=== PATIENT | male | born 1945 | race Caucasian/White ===

== ENCOUNTER 2017-10-13 10:30 | Outpatient (RCR) | payer MEDICARE, OTHER, SELFPAY ==
--- NOTE | 2017-09-15 14:30 | PTTR_ITS ---
DATE: 09/15/17 SUBJECTIVE: Indicated he has been busy with home repairs and knows this tightens his neck. Trying to stretch more to counteract this. OBJECTIVE: Manual therapy: ([id number]). Mobilization of cervical spine region while in supine consisting of gentle manual traction, grade 1/2 PA mobs to cervical vertebrae, PRTs to upper traps, lev scap and scalenes, TPM to SCMs and pecs. Focus was on the right . AAROM was performed into rotation and side bending to stretch soft tissue. Transitioned to prone for grade 1/2 PA mobs to thoracic vertebrae and brief TPM to rhomboid and mid traps. Therapeutic procedures ([id number]). * x HEP review: Reviewed phase 1 cervical stabilization isometric exercises. Given piece of yellow t-band and copy of written instructions for phase 1 cervical stab exercises. To perform 1 x per day for 10 reps each, holding each exercise 5 seconds. * x Provided skilled instruction in proper exercise performance * x Provided skilled manual cues to facilitate proper muscle recruitment and/ or movement pattern Ended session with MHP x 12 minutes to posterior c-spine region while in seated position at no charge. Direct treatment time: 37 minutes Total treatment time: 49 minutes
--- NOTE | 2017-09-22 08:30 | PN_ITS ---
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 He rates his pain as 3-4/10 presently and 6-7/10 at its worst. He feels relief of symptoms for about 2 days after PT treatment. He admits he does not always find the time to do his home program. He has been sleeping better most nights but sometimes his sleep is still disturbed. States he has been working on his computer about 3-4 hours per day and he sometimes falls into poor posture. His favorite exercise is the thoracic extension stretch and he states he feels a big difference after doing that one. He states he knows he needs to be more consistent with his HEP in order to see carry over of relief of symptoms and he states he is going to try to make time everyday. He also states he has been carrying a full bucket of water using his right UE which he thinks aggravates the right side of his neck. Instructed to carry less water in the bucket at a time and use both sides to carry water if he has 2 buckets. Objective: ROM: Cervical AROM flexion 40 degrees, extension 55 degrees, right side bending 40 degrees, left side bending 20 degrees, rotation moderately limited bilaterally measured before joint mobilizations and stretching. Posture: Still demonstrates poor seated posture with rounded shoulder, forward head, and thoracic kyphosis Palpation: Most sensitive to palpation right posterior neck, SCM, scalenes, upper trap and lev scap. NDI score: 20% impaired. Treatment: Manual therapy [id number]: Performed supine cervical manual distraction. Stretching into cervical side bending and rotation bilaterally. Grade 2/3 cervical P-A mobilizations, up glides, and down glides bilaterally. Occipital release. STM bilateral suboccipital musculature, SCMs, scalenes, upper trapezius , and levator scapulae in supine. Thoracic grade 2/3 P-A mobilizations in prone. STM bilateral upper trapezius, levator scapula, and periscapular musculature in prone. Patient reports less pain and demonstrated more motion after mobilizations and STM. Patient educated about the importance of completing HEP everyday for symptom management. Reminded about proper seated posture while sitting at computer and issued handout with picture and instructions for proper posture and alignment. Educated in use of tennis ball for self TP release. Moist heat pack x 12 minutes post session to neck. Direct treatment time: 30 minutes Total treatment time: 42 minutes Assessment: Patient is a 72 year-old male referred for PT services with the diagnosis of neck pain. Patient presents with clinical signs and symptoms consistent with DJD of cervical spine, as demonstrated by the following impairment level findings: pain, decreased cervical AROM, impaired posture. Impairments are contributing to the following functional limitations: difficulty sleeping, difficulty swallowing, difficulty lifting heavy objects. Patient has made some improvements in Cervical AROM and postural awareness. His pain ratings are about the same as they were at initial evaluation. Still limited to 20 degrees of left cervical side bending. His NDI score has improved from 28% impaired to 20% impaired. He continues to require formal skilled PT services to further improvement in cervical ROM, decrease pain, and improve posture. G codes Patient's primary functional limitation is in the category of: __[X]__ Changing and maintaining body position: [id number] Projected goal: __[X]__ Changing and maintaining body position: [id number] STG: _4___ weeks. 1. Patient will demonstrate 10 degrees improvement in cervical AROM or better in all directions. Progressing towards. 2. Patient will demonstrate improved seating posture with less forward head, less rounded shoulders, and less thoracic kyphosis. Progressing towards. 3. Patient will score 20% impaired or less on the NDI. Goal met. LTG: __8__ weeks. 1. Patient will report pain no more than 2/10 in neck. Progressing towards. 2. Patient will demonstrate 15 degree improvement or better in cervical AROM. Progressing towards. 3. Patient will score 15% impaired or less on the NDI. Progressing towards. 4. Independent HEP. Goal met. Plan: Patient to be seen 1x per week, for 4 weeks, adjusting frequency of visits per patient symptoms and response to treatment with focus on decreasing pain, improving posture, and improving cervical ROM. Treatment to include: [X] Manual therapy - [id number] Cervical PROM, cervical and thoracic joint mobilizations, cervical manual distraction, occipital release, STM to bilateral SCM, scalenes, upper trapezius, levator scapula, paraspinals, periscapular musculature, TP release, stretching [X] Therapeutic exercise - 27720 AA/AROM, deep cervical musculature strengthening. education in HEP Posture and body mechanics education. Moist heat pack for pain control. Will plan for discharge when above goals have been met.
--- NOTE | 2017-09-29 12:30 | PTTR_ITS ---
DATE: 09/29/17 SUBJECTIVE: Junaid indicates that he continues to note generalized stiffness, however is in alot less discomfort. He still feels sitting at his computer station is the number one concern and knows he needs to do something to get up and move every so often. He gets wrapped up in what he is doing and does not notice the time. He has been much more aware of his posture both with his head and shoulders. He feels this has been helpful. He notes only occasional headaches. He does feel that the exercises are helping and overall is noting definite improvements post each PT session. Continues also with heat at home. Manual therapy: ([id number]). Manual cervical distraction, PA mobs, up slopes, down slopes, segmental gliding, sidebending rotation stretching, OA release, soft tissue work to the upper back and neck in supine position. Trigger points into SCM, upper trap, levator scap, followed by review of home stretching, review of cervical stabilization, ending with moist heat for 10 mins to the cervical spine post session in seated position. Direct treatment time: 30 mins Total treatment time: 40 mins. Continue to perform 1x weekly, continue with HEP. Have recommended that he set a timer every 30 mins to get up and move about to avoid prolonged positioning at his computer. Also recommended use of wall to help with postural support and correction. KW/dl
--- NOTE | 2017-10-06 08:30 | PTTR_ITS ---
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 OBJECTIVE: Manual therapy: ([id number]). Mobilization of cervical region consisting of manual distraction, PRT to upper traps, lev scap and scalenes, TPM to SCMs and pecs, up slips, down slopes and lateral glides, AAROM into rotation and OA release. Ended session with MHP x 10 minutes to posterior cervical soft tissue while in supine, at no charge. Reviewed need to set an alarm for every 30 minutes for patient to take a stretch break while working at his computer for long periods of time. States he has not yet done this but knows this is important. Direct treatment time: 20 minutes Total treatment time: 30 minutes
--- NOTE | 2017-10-13 10:30 | PTTR_ITS ---
DATE: October 13, 2017 SUBJECTIVE: Junaid reports that he has been holding up relatively well. He actually did some painting of a floor yesterday. He notes some mild irritation however went and took a nap and his neck felt much better post. He is trying to be more compliant with his posture. He has made some adjustments to his work station that have helped however still notes he just gets wrapped up in what he is completing at the computer that he losses tract of time. He has not tried the timer at this point. Sleeping better. Stiffness and pain primarily at the end of the day. Utilizing heat at night for pain reduction. OBJECTIVE: Manual therapy: ([id number]).Manual cervical distractions. PA mobilization of the lower cervical and upper thoracic segments. Segmental mobility including up- slips down slopes followed by side bending and rotation stretching. STM throughout the entire upper back and neck provided. TPR to the upper trap and lev scap. Reviewed HEP and promoted continued awareness of body mechanics and postural awareness. Also discussed utilization of a therapeutic stability ball to sit on at his computer station providing more core activation and improved posture. He might also benefit from a standing work station to reduce his stress and irritation of his neck. Ended with cervical MHP to the neck in seated position for 10 minutes. Direct treatment time: 30 minutes Total treatment time: 40 minutes Will reassess in 2 weeks. Progressing towards more independent self management program at this time.
== END 2017-10-15 23:59 | disposition home or self-care (01) ==
LOC: PT 10:30
PROVIDERS: PCP Emergency Medicine; Referring Provider Emergency Medicine; Visit Provider Emergency Medicine
DX: M54.2 Cervicalgia (principal); M50.30 Other cervical disc degeneration, unspecified cervical region; R51 Headache; R13.10 Dysphagia, unspecified
CPT/HCPCS: 97140

== ENCOUNTER 2018-08-19 15:09 | Outpatient (CLI) | payer MEDICARE, OTHER, SELFPAY ==
--- NOTE | 2018-08-19 14:30 | DI.RAD_ITS ---
SYMPTOMS/DIAGNOSIS: LEFT HIP PAIN, BALANCE DISORDER, R26.89-OTHER ABNORMALITIES OF GAIT AND MOBILITY PELVIS AND LEFT HIP: Comparison is made with pelvis and right hip dated December,. 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 No surrounding lucencies are seen. There are moderate to severe degenerative changes of the left hip joint, increasing when compared with the previous exam. The amount of spurring has increased. Subchondral cysts are also seen. There is spurring at the inferior SI joints. 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
== END 2018-08-19 15:29 ==
PROVIDERS: PCP Emergency Medicine; Visit Provider Emergency Medicine
DX: R26.89 Other abnormalities of gait and mobility (principal); M25.552 Pain in left hip; M16.12 Unilateral primary osteoarthritis, left hip; Z96.641 Presence of right artificial hip joint
CPT/HCPCS: 73502

== ENCOUNTER 2018-08-25 00:52 | Outpatient (CLI) | payer MEDICARE, OTHER, SELFPAY ==
--- NOTE | 2018-08-25 10:05 | DI.CT_ITS ---
SYMPTOMS/DIAGNOSIS: IMBALANCE R26.89, BALANCE DISORDER, NECK PAIN X 1 YEAR, DECREASED RANGE OF MOTION IN NECK NONCONTRAST CT SCAN OF THE NECK: Lack of IV contrast does limit evaluation. There is opacification of several ethmoid air cells. Mucosal thickening is seen in the maxillary sinuses and sphenoid sinuses bilaterally. No fluid levels are appreciated. Opacification of several mastoid air cells is seen bilaterally suggesting mastoiditis. The nasopharynx, oropharynx, hypopharynx and larynx appear grossly unremarkable on this noncontrast examination. The thyroid gland appears grossly unremarkable on this noncontrast examination. The pancreas and submandibular glands are unremarkable. No significant cervical adenopathy is appreciated. In the cervical spine, there is disc space narrowing at C3-C4, C5-C6 and C6-C7. There are endplate osteophytes present from C3-C4 through C6-C7. Endplate sclerosis and subchondral cysts are seen, particularly at C4-5, C5-6 and C6-7. On the left, there is mild neural foraminal encroachment at C3-4 and C5-C6 and C6-C7. On the right, there is moderate neural foraminal encroachment at C6-C7 and mild neural foraminal encroachment at C5-C6 and C3-C4. No acute fractures or subluxations are present. The prevertebral soft tissues are unremarkable. No significant central spinal canal stenosis is seen. The lung apices are clear. IMPRESSION: 1. Lack of IV contrast does limit evaluation of the soft tissues of the neck. 2. No gross soft tissue neck abnormality. 3. Moderate to severe degenerative changes seen throughout the cervical spine with multilevel neural foraminal stenosis. 4. Evaluation of the spinal cord is limited by CT scan. If there is continued concern for intrinsic cord abnormality, an MRI should be considered.
== END 2018-08-25 01:12 ==
PROVIDERS: PCP Emergency Medicine; Visit Provider Emergency Medicine
DX: R26.89 Other abnormalities of gait and mobility (principal); M54.2 Cervicalgia; M50.321 Other cervical disc degeneration at C4-C5 level; M50.322 Other cervical disc degeneration at C5-C6 level; M50.323 Other cervical disc degeneration at C6-C7 level; M99.71 Connective tissue and disc stenosis of intervertebral foramina of cervical region
CPT/HCPCS: 70490

== ENCOUNTER 2018-12-15 01:36 | Outpatient (CLI) | payer MEDICARE, OTHER, SELFPAY ==
--- NOTE | 2018-12-15 09:20 | DI.CT_ITS ---
EXAM: CT ABDOMEN PELVIS WO CLINICAL HISTORY: NEPHROLIASIS N20.0 TECHNIQUE: Noncontrast. COMPARISON: RENAL COLIC WO CONTRAST from 07/20/2010 FINDINGS: Three small calcifications are again noted of the lower pole of the right kidney which have slightly increased in size when compared with the previous exam. There has been increase in size of calcific ations at the lower pole of the left kidney. There are 2 adjacent calcifications measuring 7 millime ters combined. Other smaller punctate calcifications are seen in both upper and mid left kidney. Th ere is a cyst in the mid right kidney measuring 4.3 cm. There is no evidence of hydronephrosis or ur eteral calculi. There is a right hip prosthesis which creates artifact in the pelvis. The prostate appears enlarged, increasing when compared the previous exam. There is apparent diffuse bladder wall thickening. No bladder calculi are visible. The lung bases are clear. The liver, gallbladder, spleen, pancreas and adrenals are unremarkable. Th ere is diverticulosis of the lower descending and sigmoid colon. The appendix appears normal. There is no small bowel dilatation. IMPRESSION: Bilateral nonobstructing renal calculi. Right renal cyst. Enlarged prostate and thick walled bladder.
== END 2018-12-15 01:56 ==
PROVIDERS: PCP Emergency Medicine; Visit Provider Urology
DX: N20.0 Calculus of kidney (principal); N28.1 Cyst of kidney, acquired; N40.0 Benign prostatic hyperplasia without lower urinary tract symptoms; N32.89 Other specified disorders of bladder; K57.30 Diverticulosis of large intestine without perforation or abscess without bleeding; Z96.641 Presence of right artificial hip joint
CPT/HCPCS: 74176

== ENCOUNTER 2019-03-05 12:53 | Emergency (ER) | payer MEDICARE, OTHER, SELFPAY ==
[2019-03-05] VITALS (29 sets, daily range): BP systolic 130–147; BP diastolic 79–96; PULSE 57–79; RESP 6–18; TEMP 37; O2SAT 83–99
--- NOTE | 2019-03-05 13:10 | W.ED.GENAD ---
Discharge Plan Disposition Patient Disposition: HOME Condition: Stable Discharge Details Chief Complaint: Chest Pain Clinical Impression: Epigastric abdominal pain Primary Care Provider: Dion Yousif ED Provider: Kimberly Palma Home Meds and New Rx's Prescriptions: Continued naproxen sodium [Aleve] 220 mg capsule 220 mg PO DAILY RF: 0 mometasone [Nasonex] 17 GM spray,non-aerosol 2 spry NS BID Qty: 1 RF: 1 albuterol sulfate [Proventil HFA] 90 mcg/actuation HFA aerosol inhaler 2 puff Inhalation Q4H PRN Qty: 3 RF: 4 Flovent HFA 110 mcg/actuation HFA aerosol inhaler 2 puff Inhalation BID Qty: 3 RF: 4 doxazosin 4 mg tablet 4 mg PO HS Qty: 90 RF: 3 acetaminophen [8 Hour Pain Reliever] 650 MG tablet extended release 650 mg PO Q4H PRN PRNQty: 30 RF: 0 Discharge Instructions Instructions: Epigastric Pain (ED) Additional Instructions: Try [id number] medications to help with heartburn or reflux, such as Pepcid, Nexium, Prilosec, Prevacid, Zantac, etc. you should take 1 of these medications for the next 2 weeks. Avoid possible triggers of GERD such as alcohol, spicy foods, chocolate or peppermint. Follow-up with your primary care doctor within the next week for reevaluation as needed. Return to any emergency department as needed with any worsening or new concerning symptoms. Discharge Data Discharge Physician: Kimberly Palma Medical Decision Making 1340 -- 74-year-old male with a history of anxiety and GERD presents for chest and epigastric pain for the past 3 weeks. He denies any known injury. He does admit to occasional shortness of breath for the past several months. He is not a smoker. He is an occasional drinker. He has significant tenderness palpation in the epigastrium. Very minimal anterior chest tenderness. Lungs are clear. Abdomen soft without rigidity. EKG on arrival notes a rate of 79, sinus, PACs with right bundle branch block without acute ischemic changes and no acute change from previous EKG. Suspect most likely GI etiology including GERD, gastritis, esophagitis or peptic ulcer disease. Differential diagnosis also includes but less likely ACS, dissection, pneumonia, costochondritis. Will place an IV, bolus IV fluids, screening labs, CT chest abdomen pelvis and will give a dose of Zofran, Pepcid and GI cocktail reassess. 1500 --patient reassessed -feels significantly better. Labs reviewed and unremarkable. Normal white blood cell count, electrolytes, troponin and lipase. Urinalysis negative. 1600 --CT reviewed and negative for acute findings. Patient still feels much better. He denies any acute complaints and is requesting to go home. Advised to use [id number] H2 blockers or PPI for pain for the next 2 weeks. He is traveling to [place] next week for the next 3 months. He is advised to follow-up with his primary care doctor for reevaluation this week as needed and for referral for stress test if indicated. Advised to return to any emergency part with any worsening or concerning symptoms. Medical Records Medical records reviewed: Yes I reviewed the patient's medical records. Imaging Data Radiologic Study: Radiologist's impression: CT Angiography Chest With Contrast Exam date and time: 03/05/2019 2:30 PM Age: 74 years old Clinical indication: Type not specified; Abdominal pain; Localized; Upper; Patient HX: Chest pain and epigastric pain x2 weeks, no back pain. TECHNIQUE: Imaging protocol: Computed tomographic angiography of the chest with intravenous contrast. 3D rendering: MIP and/or 3D reconstructed images were created by the technologist. Radiation optimization: All CT scans at this facility use at least one of these dose optimization techniques: automated exposure control; mA and/or kV adjustment per patient size (includes targeted exams where dose is matched to clinical indication); or iterative reconstruction. Contrast material: OMNIPAQUE 350; Contrast volume: 67 ml; Contrast route: IV; COMPARISON: CR ABD FLAT UPRIGHT PA CHEST 10/20/2015 9:09 PM FINDINGS: Pulmonary arteries: This exam is tailored for evaluation of the aorta with low heterogenous contrast opacification of the pulmonary arteries, significantly limiting evaluation in the segmental and more peripheral arteries. No large central pulmonary artery filling defects/embolism. Aorta: Aorta is normal caliber with no dissection. Mild atherosclerotic disease. Mildly tortuous thoracic aorta. Lungs: Unremarkable. No consolidation. No masses. Pleural space: Unremarkable. No pneumothorax. No pleural effusion. Heart: Heart is normal in size. Coronary artery calcifications. Minimal pericardial effusion. Lymph nodes: Unremarkable. No enlarged lymph nodes. Bones/joints: Unremarkable. No acute fracture. Soft tissues: Unremarkable. IMPRESSION: 1. No aortic aneurysm or dissection. 2. Coronary artery disease. CT Angiography Abdomen and Pelvis With Contrast Exam date and time: 03/05/2019 2:30 PM Age: 74 years old Clinical indication: Type not specified; Abdominal pain; Localized; Upper; Patient HX: Chest pain and epigastric pain x2 weeks, no back pain. TECHNIQUE: Imaging protocol: Computed tomographic angiography of the abdomen and pelvis with intravenous contrast material. 3D rendering: MIP and/or 3D reconstructed images were created by the technologist. Radiation optimization: All CT scans at this facility use at least one of these dose optimization techniques: automated exposure control; mA and/or kV adjustment per patient size (includes targeted exams where dose is matched to clinical indication); or iterative reconstruction. Contrast material: OMNIPAQUE 350; Contrast volume: 67 ml; Contrast route: IV; COMPARISON: Noncontrast CT abdomen and pelvis 12/15/2018. FINDINGS: Limitations: Motion artifact partially limits detail, particularly, evaluating bowel in the mid abdomen. Aorta: No aortic aneurysm or dissection. Tortuous aorta and, particularly, the iliac arteries suggesting chronic hypertension. Celiac trunk and mesenteric arteries: No occlusion or significant stenosis. Renal arteries: No occlusion or significant stenosis. Two right and single left renal arteries. Right iliac arteries: No occlusion or significant stenosis. Left iliac arteries: No occlusion or significant stenosis. Liver: Diffuse fatty infiltration of the liver. No mass. Gallbladder and bile ducts: Unremarkable. No calcified stones. No ductal dilation. Pancreas: Unremarkable. No mass. No ductal dilation. Spleen: Unremarkable. No splenomegaly. Adrenals: Unremarkable. No mass. Kidneys and ureters: Nonobstructive stones in both kidneys, largest measures 6 mm and is located in the lower left kidney. No hydronephrosis or hydroureter. 4.6 cm simple cyst in the right kidney. Stomach and bowel: Stomach is nondistended, limiting evaluation. Multiple tiny gastric, splenic and omental varices.There are several fluid and gas filled (but not dilated) proximal loops of jejunum in the left upper quadrant with prominence of the vasculature and question of mild hazy fat stranding (axial series 4, images [id number]). Distal colonic diverticulosis without signs of diverticulitis. No discrete bowel wall thickening and no bowel obstruction or perforation. Appendix: No evidence of appendicitis. Intraperitoneal space: No free air or free fluid. Lymph nodes: Unremarkable. No enlarged lymph nodes. Bladder: Unremarkable. No stones. Reproductive: Enlarged prostate gland. Bones/joints: No acute bony abnormality. Complete right hip arthroplasty. Soft tissues: Stable 2 cm cystic structure just deep to the umbilicus; no inflammation. IMPRESSION: 1. No aortic aneurysm or dissection. 2. Tortuous aorta and, particularly, the iliac arteries suggesting chronic hypertension. 3. Possible jejunitis. 4. Nonobstructive bilateral nephrolithiasis. Lab Data Lab results reviewed: Yes I reviewed the patient's lab results. Labs: Laboratory Tests Range/Units 03/05/19 03/05/19 03/05/19 13:15 13:15 13:15 WBC (4.4-10.8) k/cumm 4.44 RBC (4.50-6.00) m/cumm 4.79 Hgb (13.5-17.5) g/dL 14.9 Hct (40.0-50.0) % 43.6 MCV (80-95) fL 91.0 MCH (27.0-33.0) pg 31.1 MCHC (32.0-36.0) g/dL 34.2 RDW (11.8-14.1) % 13.3 Plt Count (130-400) x1000/uL 236 MPV (8.0-11.0) fL 9.2 Immature Gran % % 0.0 Neutrophils % 56.1 Lymphocytes % 23.2 Monocytes % 15.5 Eosinophils % 4.1 Basophils % 1.1 Absolute Neutrophils (1.2-6.7) k/cumm 2.49 Absolute Lymphocytes (1.2-3.4) k/cumm 1.03 L Absolute Monocytes (0.11-0.7) k/cumm 0.69 Absolute Eosinophils (0.0-0.7) k/cumm 0.18 Absolute Basophils (0.0-0.2) k/cumm 0.05 Sodium (136-145) mmol/L 139 Potassium (3.5-5.1) mmol/L 4.1 Chloride (98-107) mmol/L 103 Carbon Dioxide (21.0-32.0) mmol/L 26.1 Anion Gap (3-11) mmol/L 9.9 BUN (7-18) mg/dL 21 H Creatinine (0.70-1.30) mg/dL 1.17 Estimated GFR/1.73 m2 (mL/min/1.73m2) >= 60.00 Glucose (74-106) mg/dL 95 Calcium (8.5-10.1) mg/dL 9.0 Magnesium (1.8-2.4) mg/dL 1.9 Total Bilirubin (0.2-1.0) mg/dL 0.8 AST (15-37) U/L 23 ALT (16-63) U/L 30 Alkaline Phosphatase (46-116) U/L 75 Troponin I (<0.06) ng/Ml < 0.05 Total Protein (6.4-8.2) g/dL 7.1 Albumin (3.4-5.0) g/dL 3.9 Lipase (73-393) U/L 126 Urine Color (Yellow) Urine Clarity (Clear) Urine pH (5-8) Ur Specific [place] (1.005-1.025) Urine Protein (Negative) mg/dL Urine Ketones (Negative) mg/dL Urine Blood (Negative) Urine Nitrite (Negative) Urine Bilirubin (Negative) Urine Urobilinogen (Up TO 0.2) EU/dL Ur Leukocyte Esterase (Negative) Urine Glucose (Negative) mg/dL Range/Units 03/05/19 14:05 WBC (4.4-10.8) k/cumm RBC (4.50-6.00) m/cumm Hgb (13.5-17.5) g/dL Hct (40.0-50.0) % MCV (80-95) fL MCH (27.0-33.0) pg MCHC (32.0-36.0) g/dL RDW (11.8-14.1) % Plt Count (130-400) x1000/uL MPV (8.0-11.0) fL Immature Gran % % Neutrophils % Lymphocytes % Monocytes % Eosinophils % Basophils % Absolute Neutrophils (1.2-6.7) k/cumm Absolute Lymphocytes (1.2-3.4) k/cumm Absolute Monocytes (0.11-0.7) k/cumm Absolute Eosinophils (0.0-0.7) k/cumm Absolute Basophils (0.0-0.2) k/cumm Sodium (136-145) mmol/L Potassium (3.5-5.1) mmol/L Chloride (98-107) mmol/L Carbon Dioxide (21.0-32.0) mmol/L Anion Gap (3-11) mmol/L BUN (7-18) mg/dL Creatinine (0.70-1.30) mg/dL Estimated GFR/1.73 m2 (mL/min/1.73m2) Glucose (74-106) mg/dL Calcium (8.5-10.1) mg/dL Magnesium (1.8-2.4) mg/dL Total Bilirubin (0.2-1.0) mg/dL AST (15-37) U/L ALT (16-63) U/L Alkaline Phosphatase (46-116) U/L Troponin I (<0.06) ng/Ml Total Protein (6.4-8.2) g/dL Albumin (3.4-5.0) g/dL Lipase (73-393) U/L Urine Color (Yellow) Yellow Urine Clarity (Clear) Clear Urine pH (5-8) 6.5 Ur Specific [place] (1.005-1.025) 1.015 Urine Protein (Negative) mg/dL Negative Urine Ketones (Negative) mg/dL Negative Urine Blood (Negative) Negative Urine Nitrite (Negative) Negative Urine Bilirubin (Negative) Negative Urine Urobilinogen (Up TO 0.2) EU/dL 0.2 Ur Leukocyte Esterase (Negative) Negative Urine Glucose (Negative) mg/dL Negative ECG Data Attestation: I personally reviewed and interpreted this ECG (s) as follows: Interpretation: Rate of 79, sinus, PACs. Right bundle branch block. QTc 461. No acute ST elevation or depression. No acute change from previous EKG. HPI General Date/Time Provider Initiated Documentation: 03/05/19 12:54. History of Present Illness 74 year old M presents to the emergency department with the chief complaint of chest and epigastric pain, Quality is described as aching and other (knawing), Patient abdomen (from abdomen occasionally up to chest). Patient started experiencing this week(s) (3) and it has been constant. other things that improve symptom(s), (occasionally improves with sitting but does occurs when laying in bed at night) No exacerbating factors reported . Patient notes shortness of breath (occasionally for months); denies cough, diaphoresis, fever/chills, headaches, loss of appetite, malaise, nausea/vomiting, rash, seizure, syncope and weakness. Related Data Home Medications Medication Instructions Recorded Confirmed acetaminophen [8 Hour Pain 650 mg PO Q4H PRN PRN #30 tablet.er 10/21/15 03/03/19 Reliever] mometasone [Nasonex] 2 spry NS BID #1 spray 08/20/17 03/03/19 albuterol sulfate 90 mcg/actuation 2 puff INHALATION Q4H PRN #3 ea 04/28/18 03/03/19 aerosol inhaler fluticasone propionate 110 2 puff INHALATION BID #3 ea 04/28/18 03/03/19 mcg/actuation HFA aerosol inhaler naproxen sodium 220 mg capsule 220 mg PO DAILY cap 09/09/18 03/03/19 doxazosin 4 mg tablet 4 mg PO HS #90 tab 02/22/19 03/03/19 Previous Rx's Medication Instructions Recorded acetaminophen [8 Hour Pain 650 mg PO Q4H PRN PRN #30 tablet.er 10/21/15 Reliever] mometasone [Nasonex] 2 spry NS BID #1 spray 08/20/17 albuterol sulfate 90 mcg/actuation 2 puff INHALATION Q4H PRN #3 ea 04/28/18 aerosol inhaler fluticasone propionate 110 2 puff INHALATION BID #3 ea 04/28/18 mcg/actuation HFA aerosol inhaler doxazosin 4 mg tablet 4 mg PO HS #90 tab 02/22/19 Allergies Allergy/AdvReac Type Severity Reaction Status Date / Time atorvastatin calcium AdvReac Intermediate myalgias Verified 03/03/19 11:44 [From Lipitor] and joint pain CAT/FELINE Allergy Intermediate ASTHMA Uncoded 03/03/19 11:44 EXACERBATION DUST Allergy Intermediate ASTHMA Uncoded 03/03/19 11:44 EXACERBATION MOLDS AND SMUTS Allergy Intermediate ASTHMA Uncoded 03/03/19 11:44 EXACERBATION General Stated Complaint: Chest Pain MAHENDRA: 3 Review of Systems All systems reviewed & are unremarkable except as noted in HPI and below Constitutional Constitutional: Reports as per HPI, Denies chills and Denies fever(s) Eyes Eyes: Denies blurry vision ENT Ears, Nose, Mouth, and Throat: Denies dizziness, Denies sore throat and Denies throat swelling Cardiovascular Cardiovascular: Reports chest pain and Reports dyspnea Respiratory Respiratory: Denies cough and Reports dyspnea Gastrointestinal Gastrointestinal: Reports abdominal pain, Denies diarrhea and Denies vomiting Genitourinary Genitourinary: Denies hematuria and Denies dysuria Musculoskeletal Musculoskeletal: Denies back pain and Denies numbness Integumentary/Breasts Skin/Breast: Denies lesions and Denies rash Neurologic Neurologic: Denies dizziness, Denies focal weakness and Denies numbness Allergic/Immunologic Allergic/Immunologic: Denies throat swelling PFSH Medical History (Updated 08/19/18 @ 14:04 by Dion Yousif DO) Asthma BPH (benign prostatic hypertrophy) Esophageal reflux DIAZ (obstructive sleep apnea) Surgical History (Updated 08/15/18 @ 16:59 by Laurie Abarca) BACK SURGERY (~1993) Colonoscopy - MAC (06/03/16) 1999-NEG Repair of inguinal hernia Rotator Cuff Repair (~2002) 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 Father Diabetes Essential hypertension Heart disease Hyperlipidemia Brother Essential hypertension Hyperlipidemia Asthma Brother Essential hypertension Hyperlipidemia Grandfather Heart disease ? OF HEART DISEASE Grandfather Myocardial infarction Grandmother Personal history of malignant neoplasm ? CERVICAL Grandmother No problems noted. Social History Smoking/Tobacco Use Status: Never Alcohol Intake: never Drug use: Never Substance use type: does not use Do you feel safe at home: Yes Do you feel safe in your relationship?: Yes Exam Const General: cooperative, healthy appearing and no acute distress HENMT Head: normal to inspection Face and sinus: normal facial exam Eyes General: appearance normal, both eyes and all related structures EOM: EOM intact bilaterally Neck Neck: normal visual inspection and No submandibular swelling Lymphatic: no lymphadenopathy noted Chest Chest: normal inspection of the chest and tenderness (Across anterior chest minimally) Resp Effort & Inspection: normal respiratory effort and able to speak in complete sentences Auscultation: clear to auscultation bilaterally Cardio Rate: regular rate Rhythm: regular rhythm GI Inspection: normal to inspection Palpation: soft, not firm, not rigid and tender in the epigastrum Auscultation: normal bowel sounds Skin General skin exam: no rashes or lesions noted Neuro General: alert, awake and oriented x3 Cognition: normal cognition Speech: speech normal Motor: muscle tone normal throughout Sensory Exam: no sensory deficits noted Extrem General: normal to inspection, full ROM, normal capillary refill, no calf tenderness bilaterally and no edema Psych Appearance: grossly normal Mental Status: mental status grossly normal Speech and Movement: speech and movement normal Affect: normal affect Course Vital Signs Vital signs: Vital Signs Temperature 98.6 F 03/05/19 12:56 Pulse 79 03/05/19 12:56 Blood Pressure 147/96 H 03/05/19 12:56 Pulse Oximetry 98 03/05/19 12:56 Temperature 98.6 F 03/05/19 12:56 Temperature Source Skin 03/05/19 12:56 Pulse 79 03/05/19 12:56 Blood Pressure 147/96 H 03/05/19 12:56 Blood Pressure Position Supine 03/05/19 12:56 Pulse Oximetry 98 03/05/19 12:56 Oxygen Delivery Method Room Air 03/05/19 12:56 Oxygen Flow Rate 0 03/05/19 12:56 Pain Level 5 03/05/19 12:56
[2019-03-05 13:23] LABS: Absolute Basophil Count 0.05 k/cumm (0.0-0.2); Absolute Eosinophil Count 0.18 k/cumm (0.0-0.7); Absolute Lymphocyte Count 1.03 k/cumm (1.2-3.4); Absolute Monocyte Count 0.69 k/cumm (0.11-0.7); Absolute Neutrophil Count 2.49 k/cumm (1.2-6.7); Basophils % 1.1; Eosinophils % 4.1; HCT 43.6 % (40.0-50.0); HGB 14.9 g/dL (13.5-17.5); Lymphocytes % 23.2; Mean Corp. HGB Concentration 34.2 g/dL (32.0-36.0); Mean Corpuscular Hemoglobin 31.1 pg (27.0-33.0); Mean Platelet Volume 9.2 fL (8.0-11.0); Monocytes % 15.5; Neutrophils % 56.1; Platelet Count 236 x1000/uL (130-400); RBC 4.79 m/cumm (4.50-6.00); RBC Distribution Width 13.3 % (11.8-14.1); White Blood Cell Count 4.44 k/cumm (4.4-10.8)
[2019-03-05 13:41] LABS: ALT 30 U/L (16-63); AST 23 U/L (15-37); Albumin 3.9 g/dL (3.4-5.0); Alkaline Phosphatase 75 U/L (46-116); Anion Gap 9.9 mmol/L (3-11); BUN 21 mg/dL (7-18); Bilirubin, Total 0.8 mg/dL (0.2-1.0); CO2 26.1 mmol/L (21.0-32.0); CREATININE 1.17 mg/dL (0.70-1.30); Chloride 103 mmol/L (98-107); Glucose 95 mg/dL (74-106); Magnesium 1.9 mg/dL (1.8-2.4); Potassium 4.1 mmol/L (3.5-5.1); Sodium 139 mmol/L (136-145); Total Protein 7.1 g/dL (6.4-8.2)
[2019-03-05 13:42] LABS: Troponin I < 0.05 ng/Ml (<0.06)
[2019-03-05 13:53] LABS: Lipase 126 U/L (73-393)
[2019-03-05] MEDS: Ondansetron 4 MG/2 ML VIAL IVP (14:04)
[2019-03-05] MEDS: FAMOTIDINE 20 MG/50 ML BAG 200 MG IVPB (14:04)
[2019-03-05 14:19] LABS: Bilirubin Negative (Negative); Blood Negative (Negative); Clarity Clear (Clear); Glucose Negative (Negative); Ketones Negative (Negative); Leukocyte Esterase Negative (Negative); Nitrite Negative (Negative); Specific Gravity 1.015 (1.005-1.025); Urobilinogen 0.2 EU/dL (Up TO 0.2); pH 6.5 (5-8)
[2019-03-05] MEDS: Omnipaque 350 MG/ML 100 ML BTL IJ (14:25)
[2019-03-05] MEDS: Normal Saline - Diluent 50 ML VIAL IV (14:28)
--- NOTE | 2019-03-05 14:30 | DI.CT_ITS ---
EXAM: CT THORAX ABD/PEL CTA CLINICAL HISTORY: Chest and epigastric pain,? dissection TECHNIQUE: CT angiography of the chest, abdomen and pelvis was performed with intravenous infusion o f 67 cc of Omnipaque 350. Axial CT angiography was performed with multi-slice acquisition and multi-planar and/or 3D reconstruc tions. COMPARISON: RENAL COLIC WO CONTRAST from 03/05/2014 RENAL COLIC WO CONTRAST from 03/05/2014 FINDINGS: Contrast bolus was optimized for aortic opacification. Visualized pulmonary arterial circulation i s unremarkable. No thoracic aortic dissection or aneurysm. No mediastinal or hilar adenopathy. No pulmonary consolidation or mass. Tracheobronchial tree appears intact. Liver and spleen are unremarkable. Pancreas is unremarkable. No biliary dilatation and gallbladder is CT normal. There are multiple bilateral nonobstructing renal calculi. Right renal cyst again not ed. No abdominal or pelvic adenopathy. Abdominal aorta is of normal diameter. No significant stenosis of major branch arteries. No focal b owel pathology. No evidence of appendicitis or diverticulitis. Well-defined soft tissue to fluid at tenuation structure at the umbilicus, question prior umbilical surgery versus cyst. Unchanged from C T of 2014. Prominence of right seminal vesicle unchanged from prior studies as well. IMPRESSION: No evidence of acute intra-abdominal process. Bilateral nonobstructing renal calculi.
--- NOTE | 2019-03-05 16:01 | DI.VRAD_ITS ---
PROCEDURE INFORMATION: Exam: CT Angiography Chest With Contrast Exam date and time: 03/05/2019 2:30 PM Age: 74 years old Clinical indication: Type not specified; Abdominal pain; Localized; Upper; Patient HX: Chest pain and epigastric pain x2 weeks, no back pain. TECHNIQUE: Imaging protocol: Computed tomographic angiography of the chest with intravenous contrast. 3D rendering: MIP and/or 3D reconstructed images were created by the technologist. Radiation optimization: All CT scans at this facility use at least one of these dose optimization techniques: automated exposure control; mA and/or kV adjustment per patient size (includes targeted exams where dose is matched to clinical indication); or iterative reconstruction. Contrast material: OMNIPAQUE 350; Contrast volume: 67 ml; Contrast route: IV; COMPARISON: CR ABD FLAT UPRIGHT PA CHEST 10/20/2015 9:09 PM FINDINGS: Pulmonary arteries: This exam is tailored for evaluation of the aorta with low heterogenous contrast opacification of the pulmonary arteries, significantly limiting evaluation in the segmental and more peripheral arteries. No large central pulmonary artery filling defects/embolism. Aorta: Aorta is normal caliber with no dissection. Mild atherosclerotic disease. Mildly tortuous thoracic aorta. Lungs: Unremarkable. No consolidation. No masses. Pleural space: Unremarkable. No pneumothorax. No pleural effusion. Heart: Heart is normal in size. Coronary artery calcifications. Minimal pericardial effusion. Lymph nodes: Unremarkable. No enlarged lymph nodes. Bones/joints: Unremarkable. No acute fracture. Soft tissues: Unremarkable. IMPRESSION: 1. No aortic aneurysm or dissection. 2. Coronary artery disease. PROCEDURE INFORMATION: Exam: CT Angiography Abdomen and Pelvis With Contrast Exam date and time: 03/05/2019 2:30 PM Age: 74 years old Clinical indication: Type not specified; Abdominal pain; Localized; Upper; Patient HX: Chest pain and epigastric pain x2 weeks, no back pain. TECHNIQUE: Imaging protocol: Computed tomographic angiography of the abdomen and pelvis with intravenous contrast material. 3D rendering: MIP and/or 3D reconstructed images were created by the technologist. Radiation optimization: All CT scans at this facility use at least one of these dose optimization techniques: automated exposure control; mA and/or kV adjustment per patient size (includes targeted exams where dose is matched to clinical indication); or iterative reconstruction. Contrast material: OMNIPAQUE 350; Contrast volume: 67 ml; Contrast route: IV; COMPARISON: Noncontrast CT abdomen and pelvis 12/15/2018. FINDINGS: Limitations: Motion artifact partially limits detail, particularly, evaluating bowel in the mid abdomen. Aorta: No aortic aneurysm or dissection. Tortuous aorta and, particularly, the iliac arteries suggesting chronic hypertension. Celiac trunk and mesenteric arteries: No occlusion or significant stenosis. Renal arteries: No occlusion or significant stenosis. Two right and single left renal arteries. Right iliac arteries: No occlusion or significant stenosis. Left iliac arteries: No occlusion or significant stenosis. Liver: Diffuse fatty infiltration of the liver. No mass. Gallbladder and bile ducts: Unremarkable. No calcified stones. No ductal dilation. Pancreas: Unremarkable. No mass. No ductal dilation. Spleen: Unremarkable. No splenomegaly. Adrenals: Unremarkable. No mass. Kidneys and ureters: Nonobstructive stones in both kidneys, largest measures 6 mm and is located in the lower left kidney. No hydronephrosis or hydroureter. 4.6 cm simple cyst in the right kidney. Stomach and bowel: Stomach is nondistended, limiting evaluation. Multiple tiny gastric, splenic and omental varices.There are several fluid and gas filled (but not dilated) proximal loops of jejunum in the left upper quadrant with prominence of the vasculature and question of mild hazy fat stranding (axial series 4, images [id number]). Distal colonic diverticulosis without signs of diverticulitis. No discrete bowel wall thickening and no bowel obstruction or perforation. Appendix: No evidence of appendicitis. Intraperitoneal space: No free air or free fluid. Lymph nodes: Unremarkable. No enlarged lymph nodes. Bladder: Unremarkable. No stones. Reproductive: Enlarged prostate gland. Bones/joints: No acute bony abnormality. Complete right hip arthroplasty. Soft tissues: Stable 2 cm cystic structure just deep to the umbilicus; no inflammation. IMPRESSION: 1. No aortic aneurysm or dissection. 2. Tortuous aorta and, particularly, the iliac arteries suggesting chronic hypertension. 3. Possible jejunitis. 4. Nonobstructive bilateral nephrolithiasis. Dictated and Authenticated by: Radha Gomez MD. Ordering:PETE Harris MD
== END 2019-03-05 16:44 | disposition home or self-care (01) ==
PROVIDERS: Emergency Provider Physician Assistant; PCP Emergency Medicine
DX: R10.13 Epigastric pain (principal); K21.9 Gastro-esophageal reflux disease without esophagitis
CPT/HCPCS: 36415; 71275; 74177; 80053; 83690; 93005; 96365; 96375; 99285; 81003; 83735; 84484; 85025; 93010; J2405; J3490

== ENCOUNTER 2019-09-01 13:31 | Outpatient (CLI) | payer MEDICARE, OTHER, SELFPAY ==
[2019-09-07 22:26] LABS: SARS-CoV-2 RNA Undetected (Undetected); SARS-CoV-2 Specimen Source Nasopharynx
== END 2019-09-01 13:51 ==
PROVIDERS: PCP Emergency Medicine; Visit Provider Emergency Medicine
DX: R50.9 Fever, unspecified (principal)
CPT/HCPCS: U0003

== ENCOUNTER 2019-11-06 15:10 | Outpatient (CLI) | payer MEDICARE, OTHER, SELFPAY ==
--- NOTE | 2019-11-06 14:39 | DI.RAD_ITS ---
EXAM: XR PELVIS AP CLINICAL HISTORY: preop mag marker. TECHNIQUE: 2D digital imaging was performed. COMPARISON: CR XR hip LT complete AP pelvis from 08/19/2018 FINDINGS: Stable postsurgical changes of a right total hip arthroplasty is noted. The distal aspect of the fem oral component is not included on the examination. Moderate degenerative changes are seen in the lef t hip characterized by joint space narrowing subchondral sclerosis and periarticular spurring. Surgi radha clips are seen inferior to the pelvis which may represent a prior vasectomy. Dystrophic calcific ations are seen in the soft tissues. IMPRESSION: 1. Stable right THR. 2. 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 DATA REPOSITORY: RADIATION DOSE DELIVERED:
== END 2019-11-06 15:30 ==
PROVIDERS: PCP Emergency Medicine; Referring Provider Emergency Medicine; Visit Provider Student in an Organized Health Care Education/Training Program
DX: Z96.641 Presence of right artificial hip joint (principal); M16.12 Unilateral primary osteoarthritis, left hip; M25.552 Pain in left hip
CPT/HCPCS: 99203; 99214; 72170

== ENCOUNTER 2019-12-08 03:09 | Outpatient (CLI) | payer MEDICARE, OTHER, SELFPAY ==
[2019-12-08 08:30] LABS: CREATININE 1.15 mg/dL (0.70-1.30)
[2019-12-08] MEDS: Omnipaque 350 MG/ML 100 ML BTL IJ (08:48)
[2019-12-08] MEDS: Normal Saline - Diluent 50 ML VIAL IV (08:48)
[2019-12-08] MEDS: Breeza Beverage 473 ML BTL PO ×2 (08:49→08:50)
[2019-12-08] MEDS: Omnipaque 350 MG/ML 50 ML BTL IJ (08:51)
--- NOTE | 2019-12-08 09:10 | DI.CT_ITS ---
EXAM: CT ABDOMEN PELVIS W CLINICAL HISTORY: abd pain and constipation,R10.9. TECHNIQUE: Imaging Protocol: Axial computed tomography images with coronal and sagittal reformatted images were created and reviewed CONTRAST MATERIAL: Intravenous: Omnipaque 350 Contrast volume:structured 100 cc Oral: yes / COMPARISON: CT CT THORAX ABD/PEL CTA from 03/05/2019 FINDINGS: ABDOMEN: Lung Bases: Normal where visualized. Liver: Normal density. No measurable mass. Gallbladder and biliary tract: No radiodense calculus or dilation. Pancreas: Normal density, no abnormal calcifications or inflammatory process. Spleen: Normal. Kidneys: Normal size, contour and axis. Bilateral nonobstructing renal calculi. Symmetric nephrogra ms. No obstructive uropathy. No masses seen. 4.6 centimeter cyst near the upper pole of the right ki dney. Adrenal glands: No masses seen. Abdominal Aorta: Abdominal portion non-dilated. Mild atherosclerotic changes. PELVIS: Bladder: Mildly distended. Diffuse wall thickening. Bowel: Large quantity of stool. Sigmoid diverticulosis. No evidence of diverticulitis. Normal appe ndix. No obstruction or bowel wall thickening. Peritoneal cavity: No ascites, collection or mesenteric inflammatory response. Bones: Right hip prosthesis which creates artifact in the low pelvis. This partially obscures visual ization of the prostate. Degenerative disc changes and facet degenerative changes. Degenerative stiven nges of left hip. Reproductive organs: Stable asymmetry of the seminal vesicles. Enlarged prostate. Lymph nodes: Unremarkable. Abdominal wall: Prior right inguinal hernia repair. Prior umbilical hernia repair, unchanged in appe arance. Impression: Increased quantity of stool consistent with constipation. There is diverticulosis but no evidence of diverticulitis. RADIATION DOSE DELIVERED: 773.23mGy.cm Total DLP DATA REPOSITORY: All CT scans at this facility are submitted to the National Radiology Data Registry (NRDR) Dose Index Registry (DIR) with the [employer] (A[employer]). RADIATION OPTIMIZATION: All CT scans at this facility use at least one of these dose optimization te chniques: automated exposure control; mA and/or kV adjustment per patient size (includes targeted exa ms where dose is matched to clinical indication); or iterative reconstruction.
== END 2019-12-08 03:29 ==
PROVIDERS: PCP Emergency Medicine; Visit Provider Emergency Medicine
DX: K57.30 Diverticulosis of large intestine without perforation or abscess without bleeding (principal); K59.00 Constipation, unspecified; R10.9 Unspecified abdominal pain
CPT/HCPCS: 74177; 82565; J3490; Q9967

== ENCOUNTER 2019-12-15 01:58 | Outpatient (CLI) | payer MEDICARE, OTHER, SELFPAY ==
[2019-12-18 09:29] LABS: SARS-CoV-2 RNA Not Detected (NotDetected); SARS-CoV-2 RNA Source Nasal/Nares
== END 2019-12-15 02:18 ==
PROVIDERS: PCP Emergency Medicine; Visit Provider Student in an Organized Health Care Education/Training Program
DX: Z11.59 Encounter for screening for other viral diseases (principal); Z01.818 Encounter for other preprocedural examination
CPT/HCPCS: U0003

== ENCOUNTER 2019-12-15 02:20 | Outpatient (CLI) | payer MEDICARE, OTHER, SELFPAY ==
[2019-12-15 14:33] LABS: HCT 46.1 % (40.0-50.0); HGB 15.4 g/dL (13.5-17.5); MCH 31.2 pg (27.0-33.0); MCHC 33.4 % (32.0-36.0); MCV 93.5 fL (80-95); MPV 9.5 fL (8.0-11.0); Platelet Count 208 10^3/uL (130-400); RBC 4.93 10^6/uL (4.36-5.78); RDW 13.2 % (11.8-14.1); RDW-SD 45.4 fL
[2019-12-15 15:47] LABS: Anion Gap 8.5 mmol/L (3-11); BUN 24 mg/dL (7-18); CO2 27.5 mmol/L (21.0-32.0); CREATININE 1.23 mg/dL (0.70-1.30); Calcium 9.1 mg/dL (8.5-10.1); Chloride 104 mmol/L (98-107); Estimated GFR 57.68 (mL/min/1.73m2); Glucose 87 mg/dL (74-106); Potassium 4.4 mmol/L (3.5-5.1); Sodium 140 mmol/L (136-145)
== END 2019-12-15 02:40 ==
PROVIDERS: PCP Emergency Medicine; Visit Provider Student in an Organized Health Care Education/Training Program
DX: M25.552 Pain in left hip (principal); M16.12 Unilateral primary osteoarthritis, left hip; Z01.818 Encounter for other preprocedural examination; Z01.812 Encounter for preprocedural laboratory examination
CPT/HCPCS: 36415; 80048; 85027; 86850; 86900; 86901; U0003

== ENCOUNTER 2019-12-20 05:57 | Observation (INO) | payer MEDICARE, OTHER, SELFPAY ==
--- NOTE | 2019-12-19 10:41 | PDOC.ANES ---
Anesthesia Note Pt called into the Preoperative Clinic on Sunday 12/17 at 3pm , describing vision problems, prior to his Total Hip Arthroplasty on WednesdayDecember 19. Mr. Reyna reports that he is seeing floaters, flashes of light, and streaks of light. He states that he has decreased vision in my left eye. He is concerned this is due to his chronic vertigo symptoms that have returned this week. This is the first time he has experienced any decrease in vision. Mr. Reyna was evaluated by Dr. 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 Per Dr. Gonzalez this condition puts the pt at a 10% risk for a retinal detachment in the next 30 days. He is cleared to proceed with a Total Hip Arthroplasty per Dr. Gonzalez. The only precaution to take is to avoid blunt force trauma to the left eye.
[2019-12-20] VITALS (13 sets, daily range): BP systolic 69–145; BP diastolic 43–99; PULSE 45–75; RESP 13–19; TEMP 36.3–36.7; O2SAT 94–99
[2019-12-20] MEDS: Celecoxib 200 MG CAP 400 MG PO (06:17)
[2019-12-20] MEDS: Lactated Ringers 1,000 ML 80 ML IV (06:17)
[2019-12-20] MEDS: Acetaminophen 500 MG TAB 1000 MG PO ×2 (06:17→14:39)
--- NOTE | 2019-12-20 07:14 | W.PM.DS.N ---
Documented by User: Danny Graham MD 12/23/19 22:30 Date of service: 12/20/19 DS: Diagnosis Discharge Diagnosis (1) Degenerative joint disease of left hip: Status: Acute Discharge Plan Disposition Patient Disposition: HOME Condition: Good Discharge Details Reason For Visit: L HIP Admit Date/Time: 12/20/19 05:57 Admit Provider: Danny Graham Attending Provider: Danny Graham Primary Care Provider: Dion Yousif Hospital Course Hospital Course: Patient was admitted to the day surgery unit for observation following the procedure. The surgery was tolerated well without any notable medical, surgical, or anesthetic complications. Mobilization began postoperatively. He was voiding spontaneously. Vitals were stable. Physical therapy worked with the patient and was cleared for discharge home. No acute medical issues. Pain was controlled on oral regimen. Home Meds and New Rx's Prescriptions: New celecoxib 200 mg capsule 200 mg PO BID PRN (Reason: pain) Qty: 60 RF: 1 aspirin 81 mg tablet,delayed release (DR/EC) 81 mg PO BID Qty: 60 RF: 0 acetaminophen 500 mg tablet 1,000 mg PO Q8H PRN (Reason: pain) Qty: 90 RF: 3 pantoprazole 40 mg tablet,delayed release (DR/EC) 40 mg PO DAILY Qty: 30 RF: 0 oxycodone 5 mg tablet 5 mg PO Q4H Qty: 10 RF: 0 Continued docusate sodium [Colace] 100 mg capsule 100 mg PO DAILY Qty: 60 RF: 1 mometasone [Nasonex] 17 GM spray,non-aerosol 2 spry NS BID Qty: 1 RF: 1 albuterol sulfate [Proventil HFA] 90 mcg/actuation HFA aerosol inhaler 2 puff Inhalation Q4H PRN Qty: 3 RF: 4 Flovent HFA 110 mcg/actuation HFA aerosol inhaler 2 puff Inhalation BID Qty: 3 RF: 4 doxazosin 4 mg tablet 4 mg PO HS Qty: 90 RF: 3 Discontinued naproxen sodium [Aleve] 220 mg capsule 220 mg PO DAILY RF: 0 acetaminophen [8 Hour Pain Reliever] 650 MG tablet extended release 650 mg PO Q4H PRN PRNQty: 30 RF: 0 Discharge Instructions Additional Instructions: Dr. Graham's Total Hip Discharge Instructions Activity: The most important activity is to walk. You should try to take short walks a few times a day. You have no restrictions on movement or positioning, but do not try to force what you do. You will find some stiffness and weakness with hip flexion (lifting your knee). Do not try to strengthen this too early, continue to practice walking and stairs and this will come. - Outpatient physical therapy can be helpful to help return you to a normal gait and improve your flexibility and strength. This can start around 2 weeks. For most patients, it?s not necessary. Usually this is determined at the time of discharge or at the first post-operative visit. - You should wear the RYAN hose on both legs for 2 weeks. You may remove those at night. These prevent blood pooling and swelling. Dressing: Keep the surgical dressing in place for at least one week, although it may stay in place untill follow-up. It may get wet after 3 days but avoid soaking the dressing. If it gets wet, just lightly pat dry. Most people prefer to cover the dressing with some ClingWrap, Saran Wrap, to keep it dry. After the first week it may be removed if desired and then replaced with light gauze and tape or nothing. It is important to always keep some gauze or the dressing between skin folds, especially when you are sitting, so the incision is not folded over on itself at the belly fold. Medications: - You should take Tylenol and an anti-inflammatory Celebrex as your primary pain control medications. If Celebrex is too expensive or not covered you may use 1-2 Aleve twice a day. - You have been prescribed a stronger pain medication Oxycodone for breakthrough pain, take as needed as prescribed. - You have also been prescribed a stomach acid reduction agent Pantoprozole to help reduce stomach acid and reflux. - You will be taking Aspirin 81mg twice a day for DVT prevention unless instructed otherwise. - If you have constipation you should take Colace or Miralax (both [id number]). It takes most people 3-4 days to have a bowel movement. Follow-up: 2 weeks. If you have any acute concerns or questions, please do not hesitate to contact the office at [phone]. You may contact Dr. Graham with any questions after hours through the hospital at [phone] or on his cell phone at [phone]. Stand Alone Forms: DSU Post op Instructions, Reyna Valentin ([facility]U) Referrals: Danny Graham MD [ [facility] STAFF PHYSICIAN] - Activity:: Activity as Tolerated Equipment/Supplies:: Walker Diet:: As Tolerated Discharge Orders Discharge Orders: Discharge Order (Routine); Ordered 12/20/19 Ordered By: Daniela Ponce Discharge Data Discharge Date/Time-TO BE ENTERED AT DEPARTURE: 12/20/19 15:50 DS: Data Vitals/I&O Vitals and I&O: Vital Signs Temperature 36.6 C 12/20/19 06:14 Pulse 74 12/20/19 06:14 Pulse Rhythm Regular 12/20/19 06:14 Respiratory Rate 18 12/20/19 06:14 Respiratory Effort 12/20/19 06:14 Blood Pressure 145/99 H 12/20/19 06:14 Pulse Oximetry 97 12/20/19 06:14 Oxygen Delivery Method Room Air 12/20/19 06:14 Oxygen Flow Rate 0 12/20/19 06:14 Intake & Output 12/19/19 12/19/19 12/20/19 11:59 23:59 11:59 Weight 71.214 kg 73.1 kg [facility] Medical History Abdominal pain Asthma BPH (benign prostatic hypertrophy) Esophageal reflux DIAZ (obstructive sleep apnea) Surgical History BACK SURGERY (~1993) Colonoscopy - MAC (06/03/16) 1999-NEG History of spinal surgery Repair of inguinal hernia Rotator Cuff Repair (~2002) Status post hip replacement RIGHT Status post inguinal hernia repair Status post rotator cuff repair Status post vasectomy 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 Father Diabetes Essential hypertension Heart disease Hyperlipidemia Brother Essential hypertension Hyperlipidemia Asthma Brother Essential hypertension Hyperlipidemia Grandfather Heart disease ? OF HEART DISEASE Grandfather Myocardial infarction Grandmother Personal history of malignant neoplasm ? CERVICAL Grandmother No problems noted. Social History Smoking/Tobacco Use Status: Never Smoking risk assessment performed?: Yes Alcohol Intake: current Alcohol Intake frequency: 0-2 drinks per day Alcohol type: wine Drug use: Never Substance use type: does not use Current gender identity: male Do you feel safe at home: Yes Do you feel safe in your relationship?: Yes Documented by User: Daniela Cooleyxon 12/20/19 15:03 Discharge Plan Disposition Patient Disposition: HOME Condition: Good Discharge Details Reason For Visit: L HIP Admit Date/Time: 12/20/19 05:57 Admit Provider: Danny Graham Attending Provider: Danny Graham Primary Care Provider: Dion Yousif Hospital Course Hospital Course: Patient was admitted to the day surgery unit for observation following the procedure. The surgery was tolerated well without any notable medical, surgical, or anesthetic complications. Mobilization began postoperatively. He was voiding spontaneously. Vitals were stable. Physical therapy worked with the patient and was cleared for discharge home. No acute medical issues. Pain was controlled on oral regimen. Home Meds and New Rx's Prescriptions: New celecoxib 200 mg capsule 200 mg PO BID PRN (Reason: pain) Qty: 60 RF: 1 aspirin 81 mg tablet,delayed release (DR/EC) 81 mg PO BID Qty: 60 RF: 0 acetaminophen 500 mg tablet 1,000 mg PO Q8H PRN (Reason: pain) Qty: 90 RF: 3 pantoprazole 40 mg tablet,delayed release (DR/EC) 40 mg PO DAILY Qty: 30 RF: 0 oxycodone 5 mg tablet 5 mg PO Q4H Qty: 10 RF: 0 Continued docusate sodium [Colace] 100 mg capsule 100 mg PO DAILY Qty: 60 RF: 1 mometasone [Nasonex] 17 GM spray,non-aerosol 2 spry NS BID Qty: 1 RF: 1 albuterol sulfate [Proventil HFA] 90 mcg/actuation HFA aerosol inhaler 2 puff Inhalation Q4H PRN Qty: 3 RF: 4 Flovent HFA 110 mcg/actuation HFA aerosol inhaler 2 puff Inhalation BID Qty: 3 RF: 4 doxazosin 4 mg tablet 4 mg PO HS Qty: 90 RF: 3 Discontinued naproxen sodium [Aleve] 220 mg capsule 220 mg PO DAILY RF: 0 acetaminophen [8 Hour Pain Reliever] 650 MG tablet extended release 650 mg PO Q4H PRN PRNQty: 30 RF: 0 Discharge Instructions Additional Instructions: Dr. Graham's Total Hip Discharge Instructions Activity: The most important activity is to walk. You should try to take short walks a few times a day. You have no restrictions on movement or positioning, but do not try to force what you do. You will find some stiffness and weakness with hip flexion (lifting your knee). Do not try to strengthen this too early, continue to practice walking and stairs and this will come. - Outpatient physical therapy can be helpful to help return you to a normal gait and improve your flexibility and strength. This can start around 2 weeks. For most patients, it?s not necessary. Usually this is determined at the time of discharge or at the first post-operative visit. - You should wear the RYAN hose on both legs for 2 weeks. You may remove those at night. These prevent blood pooling and swelling. Dressing: Keep the surgical dressing in place for at least one week, although it may stay in place untill follow-up. It may get wet after 3 days but avoid soaking the dressing. If it gets wet, just lightly pat dry. Most people prefer to cover the dressing with some ClingWrap, Saran Wrap, to keep it dry. After the first week it may be removed if desired and then replaced with light gauze and tape or nothing. It is important to always keep some gauze or the dressing between skin folds, especially when you are sitting, so the incision is not folded over on itself at the belly fold. Medications: - You should take Tylenol and an anti-inflammatory Celebrex as your primary pain control medications. If Celebrex is too expensive or not covered you may use 1-2 Aleve twice a day. - You have been prescribed a stronger pain medication Oxycodone for breakthrough pain, take as needed as prescribed. - You have also been prescribed a stomach acid reduction agent Pantoprozole to help reduce stomach acid and reflux. - You will be taking Aspirin 81mg twice a day for DVT prevention unless instructed otherwise. - If you have constipation you should take Colace or Miralax (both [id number]). It takes most people 3-4 days to have a bowel movement. Follow-up: 2 weeks. If you have any acute concerns or questions, please do not hesitate to contact the office at [phone]. You may contact Dr. Graham with any questions after hours through the hospital at [phone] or on his cell phone at [phone]. Stand Alone Forms: DSU Post op Instructions, Reyna Valentin ([facility]) Referrals: Danny Graham MD [ [facility] STAFF PHYSICIAN] - Activity:: Activity as Tolerated Equipment/Supplies:: Walker Diet:: As Tolerated Discharge Orders Discharge Orders: Discharge Order (Routine); Ordered 12/20/19 Ordered By: Daniela Ponce Discharge Data Discharge Date/Time-TO BE ENTERED AT DEPARTURE: 12/20/19 15:50 DS: Summary Status at Discharge Functional status at discharge: uses cane/walker Overall status at discharge: patient is back to baseline Mental Status: mental status grossly normal Speech and Movement: speech and movement normal Mood: congruent mood Affect: normal affect Exam Psych Mental Status: mental status grossly normal Speech and Movement: speech and movement normal Mood: congruent mood Affect: normal affect [facility] Medical History Abdominal pain Asthma BPH (benign prostatic hypertrophy) Esophageal reflux DIAZ (obstructive sleep apnea) Surgical History BACK SURGERY (~1993) Colonoscopy - MAC (06/03/16) 1999-NEG History of spinal surgery Repair of inguinal hernia Rotator Cuff Repair (~2002) Status post hip replacement RIGHT Status post inguinal hernia repair Status post rotator cuff repair Status post vasectomy 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 Father Diabetes Essential hypertension Heart disease Hyperlipidemia Brother Essential hypertension Hyperlipidemia Asthma Brother Essential hypertension Hyperlipidemia Grandfather Heart disease ? OF HEART DISEASE Grandfather Myocardial infarction Grandmother Personal history of malignant neoplasm ? CERVICAL Grandmother No problems noted. Social History Smoking/Tobacco Use Status: Never Smoking risk assessment performed?: Yes Alcohol Intake: current Alcohol Intake frequency: 0-2 drinks per day Alcohol type: wine Drug use: Never Substance use type: does not use Current gender identity: male Do you feel safe at home: Yes Do you feel safe in your relationship?: Yes
[2019-12-20] MEDS: ceFAZolin 2 GM/50 ML BAG IVPB (07:45)
[2019-12-20] MEDS: Bupivacaine 0.25% Pres-Free 30 ML VIAL (08:54)
[2019-12-20] MEDS: Ketorolac 30 MG/ML VIAL (08:54)
--- NOTE | 2019-12-20 08:55 | DI.RAD_ITS ---
EXAM: XR HIP LT IN OR CLINICAL HISTORY: Degenerative joint disease of left hip TECHNIQUE: 2D and realtime digital imaging was performed. CONTRAST MATERIAL: Refer to procedure report. COMPARISON: CR XR PELVIS AP from 11/06/2019 FINDINGS: Fluoroscopy was provided for Dr. Graham during the performance of a placement of a left total hip arthroplasty. Please refer to the procedure report for complete details. Fluoro time: 33 seconds IMPRESSION: RADIATION DOSE DELIVERED:
--- NOTE | 2019-12-20 11:39 | IN_ITS ---
Date of service: 12/20/19 Time of Service: 11:36 PT Notes Visit Reasons: L HIP Physical Therapy Inpatient Initial Evaluation Date: 12/20/2019 Referring Doctor: Danny Graham MD PT Orders: PT CONSULT: Status post Ortho surgery. Status post L anterior MARYLIN Precautions: Fall. Standard. WBAT on left LE. Patient Profile/Admitting Diagnosis: Surya is a 74-year-old male with degenerative joint disease of the L hip and is status post L total hip arthroplasty on postoperative day 0. PMHX: Medical History Abdominal pain Asthma BPH (benign prostatic hypertrophy) Esophageal reflux Left hip pain DIAZ (obstructive sleep apnea) Surgical History BACK SURGERY (~1993) Colonoscopy - MAC (06/03/16) 1999-NEG Repair of inguinal hernia Rotator Cuff Repair (~2002) Total replacement of hip (~2010) DJD RIGHT HIP Vasectomy a Social History/Home Situation: Lives with in a private home with 4-5 steps to enter with a rail on the left going up. Independent with all aspects of ADLs prior to surgery. Equipment Owned/DME: Front wheeled walker Subjective: Agreeable to PT consult. Denies headache, chest pain, and dizziness throughout session. Hopes to go home as soon as he is medically cleared. reports 1-2/10 pain in L hip Objective: General Observation: Mepilex Ag over surgical incision. Iv access in L UE. Mental Status: Alert and oriented x4 Pain: 1?2/10 in the left hip with mobility performance ROM: Right Upper Extremity: Shoulder Flexion WFL. Shoulder abduction WFL. Elbow flexion WFL. Wrist flexion WFL. Opening and closing of hand WFL. Left Upper Extremity: Shoulder Flexion WFL. Shoulder abduction WFL. Elbow flexion WFL. Wrist flexion WFL. Opening and closing of hand WFL. Right Lower Extremity: Hip flexion WFL. Hip abduction WFL. Knee flexion WFL. Ankle dorsiflexion WFL. Ankle plantarflexion WFL. Left Lower Extremity: Hip flexion WFL. Hip abduction WFL. Knee flexion WFL. Ankle dorsiflexion WFL. Ankle plantarflexion WFL. Strength: Right Upper Extremity: Shoulder flexors 5/5. Shoulder abductors 5/5. Elbow flexors 5/5. Elbow extensors 5/5. Sql Report Writer strong. Left Upper Extremity: Shoulder flexors 5/5. Shoulder abductors 5/5. Elbow flexors 5/5. Elbow extensors 5/5. Sql Report Writer strong. Right Lower Extremity: Hip flexors 5/5. Hip abductors 5/5. Knee flexors 5/5. Knee extensors 5/5. Ankle dorsiflexors 5/5. Ankle plantarflexors 5/5. Left Lower Extremity:Hip flexors 4/5. Hip abductors 4/5. Knee flexors 5/5. Knee extensors 4/5. Ankle dorsiflexors 5/5. Ankle plantarflexors 5/5. Sensation: Numb in B gluteal and B feet areas Bed Mobility/Transfers: Rolling: Supervision Supine to sit: Supervision Sit to supine: Supervision Sit to stand: Standby assist Stand to sit: Standby assist Bed to chair: Standby assist Chair to bed: Standby assist Gait: 100 feet using FWW with SBA. Up and down 4 x 4-inch steps while holding onto L rail and with R UE minimally pushing down on PT's hand for support. THERA EX: Education and training on HEP performance done. Balance: Static Sitting: Normal Dynamic Sitting: Normal Static Standing: Fair Dynamic Standing: Fair Special Tests: Mobility Limitations Standardized Measure [facility] 6 clicks Basic Mobility Inpatient Short Form: Raw Score: 23 CMS Score: 11% deficit Informed Consent/Education: Patient instructed in purpose of PT consult and plan of care. Assessment: Surya demonstrates the need for a front wheeled walker for all mobility ADL performance, difficulty with walking, and increased fall risk due t o postoperative status. Surya is a 74-year-old male with degenerative joint disease of the L hip and is status post L total hip arthroplasty on postoperative day 0. Patient presents with clinical signs and symptoms consistent with current/admitting diagnoses that have resulted to mobility limitations, gait instability, generalized weakness, and impairment of motor control as demonstrated by the following impairment level findings: 1. Impaired standing balance 2. Impaired activity tolerance Impairments are contributing to the following functional limitations: 1. Inability to safely ambulate without assistive device 2. Increase completion time for mobility ADL performance 3. Increased fall risk Patient is assessed as a 04291 moderate complexity based on the following: History: 74-year-old male with impairment level findings, functional limitations, and past medical history as indicated above Examination: Demonstrable impairment in strength, balance, and mobility level with underlying impairments and functional limitations as documented above Presentation:Evolving Decision Makin moderate complexity Goals: N/A. PT eval and 1 treatment session only for functional mobility performance using the front wheeled walker. Plan of Care/Treatment Plan: N/A. PT eval and 1 treatment session only for functional mobility performance using the front wheeled walker. DISCHARGE RECOMMENDATIONS: Home when medically cleared by orthopedic surgeon. Outpatient PT services as recommended by orthopedic surgeon at 2-week follow-up visit. TREATMENT CODE/TIME: 93672 x 25 minutes, 64670 x 24 minutes beginning at 11:39 AM. Thank you for the opportunity to participate in the care of this patient. Cyn Solis PT, DPT, CLT [facility] [place], [place]
--- NOTE | 2019-12-20 20:10 | ROE_ITS ---
Date of service: 12/20/19 Time of Service: 09:22 Operative Note Operative Note DATE OF PROCEDURE: 12/20/19 PRE-OP DIAGNOSIS: Left Hip Osteoarthritis POST-OP DIAGNOSIS: same PROCEDURE: Left Anterior Total Hip Arthroplasty SURGEON: Danny Graham ORTHOTIC AIDE: Juan Carlos Gordon ANESTHESIA: spinal ESTIMATED BLOOD LOSS: 300 PATHOLOGY: none sent TOURNIQUET TIME: 0 COMPLICATIONS: None Patient was transported to: PACU Patient's condition: stable Implants: 1. Depuy Universal Acetabular Component, 52mm 2. Depuy Acetabular Liner, [id number] 3. Depuy Corail Standard Collared Femoral Stem, Size 12 4. Depuy Altrx Ceramic Femoral Head, Size 36+5mm Indications: I have seen Junaid in clinic for symptoms of hip arthritis, confirmed with radiographic findings. He has exhausted nonoperative methods and was having significant limitations in daily function and desired better function and less pain. I discussed the technical details of a hip replacement. I explained the risks of the procedure to include, but not limited to, bleeding, infection, pain, stiffness, fracture, damage to nerves and vessels, damage to muscles and tendons, loosening, instability, leg length inequality, need for repeat procedure, blood clot and cardiopulmonary demise. Despite these risks, Junaid elected to proceed. Findings: There was significant signs of arthritis throughout the hip both of the femoral head and the superior acetabulum. Procedure Description: Junaid was greeted in the preoperative holding area where the correct side was identified and marked. The consent was reviewed with the patient and signed. The history and physical was updated. All questions were answered. He was taken back to the operating room. A spinal anesthestic was then administered. The feet were wrapped with cast padding and Coban and then placed into the boot liners and then into the boots. Care was taken to protect the skin and make sure the heels were fully down and the boots were stable. The patient was then positioned onto the HANA table. Both legs were held in a neutral position. SCDs were applied. The patient was then slid down onto a peroneal post. A preoperative AP pelvis was obtained to serve as a reference for determining leg lengths. Prophylactic antibiotics in the form of Cefazolin were administered. 1g of Tranxemic Acid was given intravenously within 30 minutes of incision. The left leg was then prepped with Chloraprep and draped in a standard fashion. A second prep with Chloraprep was performed prior to placement of a shower-curtain type drape with Iodine impregnated skin protection. A timeout to confirm correct identity, side and site, procedure, allergies, anesthesia, and medical concerns was performed. An obliquely oriented incision was made starting lateral to the ASIS and running distal over the Tensor Fascia Carmela (TFL) muscle belly toward the fibular head, approximately 10cm. The skin and soft tissue was dissected sharply, through Arnulfo?s fascia, and to the fascia of the TFL. With the fascia and superior border of the IT band identified, the fascia was incised with a new knife just above any perforators from the IT band. The TFL muscle belly was bluntly disse cted away from the fascia and moved laterally. The fat between TFL and rectus was identified to ensure the dissection was not within the TFL. Blunt dissection created space between abductors and the capsule and retractor was placed over the lateral femoral neck. The fibers of the rectus femoris tendon were identified and these were freed from the anterior capsule. A second cobra retractor was placed around the medial femoral neck. The TFL was further retracted laterally to show the deep fascia. Careful dissection through this layer identified three main crossing vessels of the lateral femoral circumflex. These were cauterized in multiple locations and then cut without any noticeable bleeding. The TFL was further released bluntly from the deep fascia to expose anterior hip capsule and fat The Albaro orthopaedic retractor was then placed beneath the TFL and against sartorius and medial soft tissues to protect and retract the soft tissues. A T-capsulotomy was then performed starting at the superior lateral acetabulum and moving distally to the intertrochanteric ridge. These capsular flaps were tagged with a No. 1 Ethibond and elevated from within. The capsular flaps were released to the shoulder of the lateral neck and to the lesser trochanter to give excellent visualization of the proximal femur. A neck osteotomy was performed using an oscillating saw based on preoperative templates. This cut started in the shoulder and of the lateral neck and exited medially. The saw was at all times directed medially to avoid injury to the greater trochanter. 6cm of traction was applied to the leg and the osteotomy opened. The femoral head was removed with a corkscrew, making sure to protect the TFL on its exit. Traction was released after head removal. This was tsering sured on the back table to determing the starting reamer size. Portions of the rectus obscuring visualization were minimally elevated off the superior acetabulum. An anterior retractor was placed over the anterior wall between capsule and labrum and attached to the Gripper retraction system. A posterior retractor was placed similarly. This provided excellent visualization. The contents of the cotyloid fossa were removed with electrocautery and the labrum was removed with a knife. There was a notable floor osteophyte. There was significant chondromalacia of the superior acetabulum. Acetabular reaming began with a 48mm reamer. This first reaming was directed anterior to posterior and medial to get down to the true floor. This was inspected and reamed until the true floor was reached. The anterior retractor was then released and entry and exit was provided by traction on the capsular flaps. I then reamed sequentially up to a 52mm reamer where good fit was obtained. The larger reamers were oriented based on anatomical reference of the anterior and lateral garcia to ensure proper abduction and anteversion. Positioning and size was confirmed with the fluoroscopy. A 52mm Depuy Universal acetabular component was selected. The deep tissues were irrigated. The acetabular component was then impacted in a position of about 40-45 degrees of abduction and 15-20 degrees of anteversion, using the patient?s anatomy as the ultimate landmark. Fluoroscopy was used to confirm this. There was excellent crosscutter of the acetabular component and the inserting handle was removed. The acetabular liner, Depuy 39u25ot polyethylene liner, was inserted and lined up with the tines of the acetabular component. There was no soft tissue interposition. The liner was then impacted into position and confirmed to be well-seated. A portion of the jacquie-articular cocktail was then injected around the acetabulum into the capsule and periosteum. This cocktail consisted of 50cc of 0.25% Bupivicaine and 20cc of Exparel, expanded to a total of 120cc. Traction was released from the femur. The leg was rotated to 120 degrees. Any remaining medial capsule was released until the lesser trochanter was easily palpable. A Moody retractor was placed medially. The lateral capsule was further released into the shoulder to allow access to the greater trochanter. A Moody retractor was placed over the greater trochanter which allowed the trochanter to flip in front of the capsule for excellent exposure. The leg was brought down into maximal extension and 20 degrees of adduction while ensuring there was no impingement on the acetabulum. Any remnant capsule within the trochanter was released. Piriformis and obturator externis were identified and protected. There was excellent access to the proximal femur. The lateral neck remnant was removed with a rongeur. A blunt canal probe was used to identify the canal and trajectory for later broaching. A box osteotome initiated the broach course. A small curved rasp and a curved curette were used to work laterally. Broaching then began with a size 8 Corail broach. This was inserted manually around the trochanter and into the canal before mallet blows. The broach was seated to the neck cut level based on the neck cut and the preoperative template. Sequential broaching was continued with the Eletrogóes pneumatic broaching device until a tight fit was obtained with good rotational control of the femur. A trial high offset neck was inserted along with a +1.5 trial head. The leg was brought out of extension and adduction and then reduced with traction and internal rotation. The leg was stable anteriorly in a position of 30 degrees of extension and 90 degrees of external rotation. Fluoroscopy was used to ensure there was no fracture and the stem was seated well. Leg lengths were checked with an AP pelvis and pelvic reference points. [employer] navigation system was used to confirm appropriate positioning and leg length and offset. This increased offset too much and overlengthened so going to a standard +5 would reduce offset and by sinking the stem another 4-5 mm would reduce the leg length. Once content with the desired offset and leg lengths, the leg was brought back into extension, external rotation and adduction. The femur was broached, working laterally, to push the stem another 4-5 mm. The periosteum and surrounding tissue was injected with remaining portion of the jacquie-articular cocktail. The proximal femur was irrigated as well as the deep tissues. The Depuy Corail standard collared stem, size 12, was then manually inserted into the proximal femur making sure to control rotation. It was then malleted into position with light blows, giving breaks to allow bone expansion and decrease risk of fracture. The selected Depuy Altrx Ceramic Head, size 36+5mm, was then placed onto the clean and dry trunnion and secured with impaction onto the tapered fit. The leg was brought back out of extension and adduction and reduced with traction and internal rotation. Stability was confirmed with no shuck at 90 degrees of external rotation and 30 degrees of extension. No impingement through range of motion arc. Final x-ray images were obtained with fluoroscopy to confirm adequate positioning and no intraoperative fracture. The deep tissues were thoroughly irrigated with Irrisept chlorhexadine solution. The second dose of TXA 1g was administered intravenously.The capsule was then reapproximated with the previously placed Ethibond sutures. The TFL fascia was finally closed with a No. 2 Stratafix, barbed suture. Deep tissues were then reapproximated with 0 Vicryl and a running 2-0 Vicryl. The skin was closed with a running 4-0 Monocryl in a subcuticular fashion. This was reinforced with skin glue. A Mepilex silver dressing was applied. At the end of the case, all counts were correct. Junaid was transferred to the hospital bed without difficulty and suffering no apparent complication. Junaid has a good prognosis. Physical therapy will start today and without restrictions, weight-bearing as tolerated. Aspirin 81mg BID will be used for DVT prophylaxis.
== END 2019-12-20 15:50 | disposition home or self-care (01) ==
PROVIDERS: Admitting Provider Student in an Organized Health Care Education/Training Program; PCP Emergency Medicine; Visit Provider Student in an Organized Health Care Education/Training Program
PROC: (CPT 27130; principal; 2019-12-20 07:30)
DX: M16.12 Unilateral primary osteoarthritis, left hip (principal); J45.909 Unspecified asthma, uncomplicated; K21.9 Gastro-esophageal reflux disease without esophagitis; G47.33 Obstructive sleep apnea (adult) (pediatric); F41.9 Anxiety disorder, unspecified
CPT/HCPCS: 27130; 97162; 97530; NC; 73501; J0690; J1100; J1885; J2370; J2405

== ENCOUNTER 2020-01-04 08:26 | Outpatient (CLI) | payer MEDICARE, OTHER, SELFPAY ==
--- NOTE | 2020-01-04 08:15 | DI.RAD_ITS ---
EXAM: XR HIP LT COMPLETE AP PELVIS CLINICAL HISTORY: 1st post op. TECHNIQUE: 2D digital imaging was performed. COMPARISON: CR XR hip LT complete AP pelvis from 08/19/2018 FINDINGS: BONES: There are stable post operative changes present. No fracture or dislocation. There is again s een an old right total hip replacement. JOINTS: The joint spaces are well maintained. No joint effusion is present. SOFT TISSUE: Surgical clips are seen below the pelvis which may reflect prior vasectomy. IMPRESSION: Stable postoperative changes. DATA REPOSITORY: RADIATION DOSE DELIVERED:
== END 2020-01-04 08:46 ==
PROVIDERS: PCP Emergency Medicine; Referring Provider Emergency Medicine; Visit Provider Student in an Organized Health Care Education/Training Program
DX: Z96.642 Presence of left artificial hip joint (principal); Z47.1 Aftercare following joint replacement surgery
CPT/HCPCS: 73502

== ENCOUNTER → 2020-01-16 07:58 | Outpatient (BNVA) | payer MEDICARE, OTHER, SELFPAY | PROVIDERS: PCP Emergency Medicine; Referring Provider Emergency Medicine; Visit Provider Surgery | DX: R19.4 Change in bowel habit (principal) | CPT/HCPCS: 99202; 99213 ==

== ENCOUNTER 2020-02-01 02:11 | Outpatient (CLI) | payer MEDICARE, OTHER, SELFPAY ==
[2020-02-02 14:50] LABS: COVID-19 RT-PCR UVMMC Result Negative (Negative)
== END 2020-02-01 02:31 ==
PROVIDERS: PCP Emergency Medicine; Visit Provider Surgery
DX: Z47.1 Aftercare following joint replacement surgery (principal); Z11.59 Encounter for screening for other viral diseases; Z96.642 Presence of left artificial hip joint
CPT/HCPCS: U0003

== ENCOUNTER 2020-02-05 07:20 | Day surgery (SDC) | payer MEDICARE, OTHER, SELFPAY ==
--- NOTE | 2020-02-05 06:50 | W.COLOREPORT ---
Date of service: 02/05/20 Colonoscopy Report Date of procedure: 02/05/20 Pre-op diagnosis general: Constipation Procedure: Colonoscopy Surgeon: Crystal Barker Anesthesia proc note operative: other (General/ASA /) Complications: None Disposition: same day Indications: 74-year-old gentleman who has been having constipation with 7-8 bowel movements a day. The bowel movements are small pebble-like. He has some rectal pain at times. He is also had some abdominal pain which does get better once he has a bowel movement. He had one episode of diarrhea in the last week. He is taking MiraLAX and Colace as needed. He has had no unintentional weight loss, melena or hematochezia. His last colonoscopy was in 2017 and was normal per patient. Colonoscopy was recommended. Risks, benefits, complications were reviewed with him. Complications include but are not limited to bleeding, perforation, pain, sore throat, adverse reaction to medications, and aspiration. Questions were entertained and answered to his satisfaction and he wished to proceed. We also discussed Covid testing prior to his procedure. We went over quarantine requirements as well. He has no more questions and wishes to proceed with a colonoscopy. No guarantees were given or implied. Prep: Miralax/Dulcolax Procedure Start Time: 08:28 Procedure End Time: 08:49 Retraction Time: 10 minutes Findings: Moderate sigmoid diverticulosis Procedure Description: After informed consent was obtained the patient was taken to the procedure room and placed in a left decubitous position. Monitors were applied and a time out was done. The patients name, date of , procedure, allergies to medications and metal in their body was reviewed. The patient was then sedated. Once sedated and comfortable a rectal exam was done. External exam was normal. Internal exam revealed a normal sphincter tone and no palpable masses. The prostate felt smooth but enlarged. The scope was then introduced and retro-flexed. No internal hemorrhoids were identified. The scope was then advanced to the cecum without difficulty. The ileocecal valve and appendiceal orifice were identified. The prep was good. The scope was then slowly retracted over 10 minutes back into the rectum. There were no polyps. There was moderate diverticulosis of the sigmoid colon. The scope was removed and the patient was woken up and taken back to Same day surgery in stable condition. The patient tolerated the procedure well and there were no immediate complications. Follow up: The patient should follow up as needed if they develop changes in bowel habits or other new gastrointestinal complaints.
--- NOTE | 2020-02-05 06:51 | W.PM.DSUDISC ---
Discharge Plan Disposition Patient Disposition: HOME Condition: Good Discharge Details Reason For Visit: Constipation Attending Provider: Crystal Barker Primary Care Provider: Dion Yousif Home Meds and New Rx's Prescriptions: Continued doxazosin 4 mg tablet 4 mg PO HS Qty: 90 RF: 3 mometasone [Nasonex] 17 GM spray,non-aerosol 2 spry NS BID PRNRF: 0 albuterol sulfate [Proventil HFA] 90 mcg/actuation HFA aerosol inhaler 2 puff Inhalation Q4H PRN PRNRF: 0 Flovent HFA 110 mcg/actuation HFA aerosol inhaler 2 puff Inhalation BID PRNRF: 0 celecoxib [Celebrex] 200 mg Capsule 200 mg PO BID RF: 0 aspirin 81 mg Tablet,Delayed Release (Dr/Ec) 81 mg PO DAILY PRNRF: 0 acetaminophen 500 mg tablet 1,000 mg PO Q8H PRN (Reason: pain) Qty: 90 RF: 3 Discharge Instructions Instructions: Diverticulosis (DC) Additional Instructions: Findings: Diverticulosis Follow up: as needed Medications: Continue with increase in fiber, miralax daily and lots of water Please call if you develop: fevers >101.5 Nausea or Vomiting Abdominal pain that is not transient DAY SURGERY UNIT POST ENDOSCOPY INSTRUCTIONS 1. Because there will be medication in your system for the next 24 hours, you may feel a little sleepy. Your coordination will be affected. Therefore: a. Do not drive or operate dangerous equipment for 24 hours. b. Do not drink alcohol beverages for 24 hours (not even beer). c. Plan to go home and rest for the day. 2. Generally there are no restrictions on your activity after a day or so has gone by, but you may feel a bit fatigued for a few days. 3 After you arrive home you may have a light meal and return to a normal diet as you can tolerate it without feeling sick to your stomach. 4. After surgery, you may feel pain or discomfort. This should be only transient, but if it persists please contact your doctor. 5. If there are any questions regarding the findings of your procedure, please feel free to contact your doctor. 6. If you are unable to contact your doctor with a problem, contact the hospital at [phone]. 7. Continue all your regular medications unless directed otherwise. I understand the above instructions and have no questions. Signature of Patient or Responsible Adult Escort Date/Time Name of Responsible Adult Escort Signature of Nurse Date/Time Activity:: Activity as Tolerated Diet:: High Fiber diet Discharge Orders Discharge Orders: Discharge Order (Routine); Ordered 02/05/20 Ordered By: Crystal Barker
[2020-02-05 07:23] VITALS: BP 111/76; PULSE 73; RESP 16; TEMP 36.6; O2SAT 96
[2020-02-05] MEDS: Lactated Ringers 1,000 ML 80 ML IV (07:53)
[2020-02-05 09:29] VITALS: BP 112/76; PULSE 61; RESP 18; TEMP 36.5; O2SAT 95
== END 2020-02-05 09:54 | disposition home or self-care (01) ==
LOC: SUR 07:20
PROVIDERS: PCP Emergency Medicine; Visit Provider Surgery
PROC: 0DJD8ZZ Inspection of Lower Intestinal Tract, Via Natural or Artificial Opening Endoscopic (ICD-10-PCS; CPT 45378; principal; 2020-02-05 08:30)
DX: R19.4 Change in bowel habit; R10.9 Unspecified abdominal pain; K57.30 Diverticulosis of large intestine without perforation or abscess without bleeding
CPT/HCPCS: 45378

== ENCOUNTER 2020-12-18 03:14 | Outpatient (CLI) | payer MEDICARE, OTHER, SELFPAY ==
[2020-12-19 19:48] LABS: COVID-19 RT-PCR UVMMC Result Negative (Negative)
== END 2020-12-18 03:15 | disposition home or self-care (01) ==
LOC: LBO 03:14
PROVIDERS: PCP Emergency Medicine; Visit Provider Nurse Practitioner Family
DX: Z20.822 Contact with and (suspected) exposure to COVID-19 (principal)
CPT/HCPCS: U0003; U0005

== ENCOUNTER 2021-01-02 09:13 | Outpatient (CLI) | payer MEDICARE, OTHER, SELFPAY ==
--- NOTE | 2021-01-02 07:45 | DI.RAD_ITS ---
Exam(s) XR HIP LT AP LAT ONLY EXAM: XR HIP LT AP LAT ONLY CLINICAL HISTORY: annual f/u L MARYLIN. TECHNIQUE: 2D digital imaging was performed. COMPARISON: CR XR HIP LT COMPLETE AP PELVIS from 01/04/2020 FINDINGS: Stable position alignment of the bilateral prostheses. No fracture or loosening evident. Some dystr ophic calcification around the right hip is noted but this has not increased from last year. However , on the opposite-left side there is a 1.5 x 0.4 cm ossified density off the anterior inferior iliac spine not previously present. This is possibly related to interval avulsion injury or interval devel opment of dystrophic calcification. There is calcification again noted in the soft tissues medial le ft thigh noted. IMPRESSION: DATA REPOSITORY: RADIATION DOSE DELIVERED:
== END 2021-01-02 09:14 | disposition home or self-care (01) ==
LOC: DIORS 09:13
PROVIDERS: PCP Emergency Medicine; Referring Provider Emergency Medicine; Visit Provider Student in an Organized Health Care Education/Training Program
DX: Z47.1 Aftercare following joint replacement surgery (principal); Z96.642 Presence of left artificial hip joint; M70.62 Trochanteric bursitis, left hip
CPT/HCPCS: 99212; 73502

== ENCOUNTER 2021-07-23 03:52 | Outpatient (CLI) | payer MEDICARE, SELFPAY ==
[2021-07-23 14:27] LABS: Anion Gap 8.5 mmol/L (3-11); BUN 20 mg/dL (7-18); CO2 29.5 mmol/L (21.0-32.0); CREATININE 1.2 mg/dL (0.70-1.30); Calcium 8.6 mg/dL (8.5-10.1); Calculated LDL 142 mg/dL (<100); Chloride 102 mmol/L (98-107); Cholesterol 199 mg/dL (<200); Estimated GFR 59.02 (mL/min/1.73m2); Glucose 87 mg/dL (74-106); HDL Cholesterol 40 mg/dL (40-60); Potassium 4.4 mmol/L (3.5-5.1); Sodium 140 mmol/L (136-145); Triglyceride 89 mg/dL (<150)
== END 2021-07-23 03:53 | disposition home or self-care (01) ==
LOC: LOS 03:52
PROVIDERS: PCP Family Medicine; Visit Provider Family Medicine
DX: E78.5 Hyperlipidemia, unspecified (principal); I10 Essential (primary) hypertension
CPT/HCPCS: 36415; 80048; 80061

== ENCOUNTER → 2021-10-14 01:57 | Outpatient (CLI) | payer MEDICARE, SELFPAY ==
--- NOTE | 2021-10-14 07:00 | DI.RAD_ITS ---
Exam(s) XR KNEE LT 3V AP,LAT,THERESE EXAM: XR KNEE LT 3V AP,LAT,THERESE CLINICAL HISTORY: Pain grindingMild patellofemoral DJD Suprapatlla, 6 MO AGO TWISTED KNEE, TECHNIQUE: COMPARISON: No exams were available for comparison FINDINGS: Three views were obtained. There is moderate to severe loss the cartilaginous joint space at the med ial tibiofemoral joint. There is mild cartilaginous joint space narrowing of lateral tibiofemoral michelle int and patellofemoral joint. There are mild marginal osteophytes all 3 joints of the knee. There i s some cortical irregularity and flattening of the medial femoral condyle presumably on a degenerativ e basis. There is a small superior patellar enthesophyte. There is a probable knee joint effusion. IMPRESSION: DJD, most marked involving medial tibiofemoral joint. RADIATION DOSE DELIVERED: Total DLP
== END ==
PROVIDERS: PCP Family Medicine; Visit Provider Nurse Practitioner Family
DX: M17.12 Unilateral primary osteoarthritis, left knee (principal)
CPT/HCPCS: 73562

== ENCOUNTER 2021-12-08 10:33 | Outpatient (CLI) | payer MEDICARE, SELFPAY | END 2021-12-08 10:34 | disposition home or self-care (01) | LOC: DIORS 10:33 | PROVIDERS: PCP Family Medicine; Referring Provider Family Medicine; Visit Provider Physician Assistant Surgical | DX: M17.12 Unilateral primary osteoarthritis, left knee (principal); S46.212A Strain of muscle, fascia and tendon of other parts of biceps, left arm, initial encounter; W54.8XXA Other contact with dog, initial encounter | CPT/HCPCS: 20610; J1040 ==

== ENCOUNTER 2021-12-26 01:55 | Outpatient (CLI) | payer MEDICARE, SELFPAY ==
[2021-12-28 21:47] LABS: Anaplasma phagocytophilum Negative (Negative); B. miyamotoi PCR Negative (Negative); Babesia divergens/MO-1 Negative (Negative); Babesia duncani Negative (Negative); Babesia microti Negative (Negative); Ehrlichia chaffeensis Negative (Negative); Ehrlichia ewingii/canis Negative (Negative); Ehrlichia muris eauclairensis Negative (Negative)
[2021-12-29 10:04] LABS: Lyme Ab w Rflx to Lyme Confirm Negative (Negative)
== END 2021-12-26 01:56 | disposition home or self-care (01) ==
PROVIDERS: PCP Family Medicine; Visit Provider Nurse Practitioner Family
DX: W57.XXXA Bitten or stung by nonvenomous insect and other nonvenomous arthropods, initial encounter (principal); T14.8XXA Other injury of unspecified body region, initial encounter
CPT/HCPCS: 36415; 87798; 86618

== ENCOUNTER → 2022-04-17 09:55 | Outpatient (BNVA) | payer MEDICARE, SELFPAY | PROVIDERS: PCP Family Medicine; Referring Provider Family Medicine; Visit Provider Physician Assistant | DX: M17.12 Unilateral primary osteoarthritis, left knee (principal) | CPT/HCPCS: 20610; J1040 ==

== ENCOUNTER → 2022-08-19 08:35 | Outpatient (BNVA) | payer MEDICARE, SELFPAY | PROVIDERS: PCP Family Medicine; Referring Provider Family Medicine; Visit Provider Physician Assistant | DX: M17.12 Unilateral primary osteoarthritis, left knee (principal) | CPT/HCPCS: 20610; J1040 ==

== ENCOUNTER 2022-10-02 10:37 | Outpatient (CLI) | payer MEDICARE, SELFPAY ==
--- NOTE | 2022-10-02 10:30 | RT.EKG_ITS ---
APPROVED REPORT Exam: Resting ECG Reason for Exam: SOB. Chest tightness Patient Location: O HR:59 bpm ECG Measurements Heart Rate 59 AXIS DC 221 P 41 QRSd 148 QRS 37 QT 422 T 16 QTc 418 Conclusion Sinus rhythm...normal P axis, V-rate 50- 99 Atrial premature complex...SV complex w/ short R-R interval Prolonged DC interval...DC >220, V-rate 50- 90 Right bundle branch block...QRSd>120, terminal axis(90,270)
== END 2022-10-02 10:38 | disposition home or self-care (01) ==
LOC: DI.CM 10:39
PROVIDERS: PCP Family Medicine; Visit Provider Nurse Practitioner Family
DX: R07.89 Other chest pain (principal); R06.02 Shortness of breath
CPT/HCPCS: 93010

== ENCOUNTER 2022-10-02 11:20 | Emergency (ER) | payer MEDICARE, SELFPAY ==
--- NOTE | 2022-10-02 11:15 | RT.EKG_ITS ---
APPROVED REPORT Exam: Resting ECG Reason for Exam: Chest pain Patient Location: E HR:70 bpm ECG Measurements Heart Rate 70 AXIS NH 227 P 21 QRSd 153 QRS 6 QT 461 T 1 QTc 498 Conclusion Sinus rhythm...normal P axis, V-rate 60- 99 Supraventricular bigeminy...bigeminy string>4 w/ SV complexes Prolonged NH interval...NH >220, V-rate 50- 90 Right bundle branch block...QRSd>120, terminal axis(90,270) sinus rhythm, with frequent PACs in bigeminy pattern
[2022-10-02 11:26] VITALS: BP 164/76; PULSE 63; RESP 14; O2SAT 98
--- NOTE | 2022-10-02 11:45 | DI.RAD_ITS ---
Exam(s) XR CHEST 2V PA LATERAL EXAM: XR CHEST 2V PA LATERAL CLINICAL HISTORY: dyspnea, chest pain. TECHNIQUE: 2D digital imaging was performed. COMPARISON: No exams were available for comparison FINDINGS: 2 views: Heart size is normal. The mediastinum is not widened. There is platelike atelectasis in left lung base. Remainder of the lung [place] unremarkable. No ple ural effusions. IMPRESSION: There is subsegmental platelike atelectasis in left lung base inferior lingular segment. No other pu lmonary findings and no pleural effusions. DATA REPOSITORY: RADIATION DOSE DELIVERED:
[2022-10-02] MEDS: Aspirin 81 MG CHEW 324 MG CH (12:08)
--- NOTE | 2022-10-02 12:16 | ED.GENADUL_ITS ---
Discharge Plan Disposition Patient Disposition: Home Condition: Improving Discharge Details Chief Complaint: Chest Pain Clinical Impression: Chest pain Primary Care Provider: Uvaldo Anderson ED Provider: Sourav Hardy Home Meds and New Rx's Prescriptions: No Action fluticasone propionate [Flovent HFA] 110 mcg/actuation HFA aerosol inhaler 2 puff Inhalation BID Qty: 3 3RF naproxen sodium [Aleve] 220 mg capsule 220 mg PO BID PRN albuterol sulfate [Proventil HFA] 90 mcg/actuation HFA aerosol inhaler 2 puff Inhalation Q4H PRN PRN (Reason: bronchospasm) Qty: 18 6RF doxazosin 4 mg tablet 4 mg PO HS Qty: 90 3RF meclizine 25 mg tablet 25 mg PO DAILY PRN (Reason: dizziness) Qty: 30 2RF acetaminophen 500 mg tablet 1,000 mg PO Q8H PRN (Reason: pain) Qty: 90 3RF Discharge Instructions Instructions: Chest Pain (ED) Additional Instructions: Please follow-up with your primary care physician to discuss further cardiac evaluation. Please return to the emergency department for any worsening symptoms Medical Decision Making 77-year-old male presents with dyspnea at rest and dyspnea on exertion associate with anterior chest discomfort over the last week intermittent in nature, family history of coronary disease, no personal history of CAD, no history of thromboembolic disease or thromboembolic risk factors, EKG normal displaying bigeminy, consider ACS versus electrolyte abnormality versus CHF, lower suspicion for PE or aortic pathology. Screening labs imaging aspirin close reassessment 14:04 patient resting abdomen no acute distress chest pain-free. Labs and imaging unremarkable. Patient will follow-up with his primary care physician for cardiac evaluation, discussed benefits of echocardiogram stress test and/or Holter monitor HPI General Date/Time Provider Initiated Documentation: 10/02/22 11:26 . HPI Narrative: 77-year-old male history of hyperlipidemia presents with exertional dyspnea and dyspnea at rest over the last week associate with anterior chest pressure. Family history of coronary disease, no personal history, no history of thromboembolic disease no recent travel no recent immobilization Related Data Home Medications Medication Instructions Recorded Confirmed acetaminophen 500 mg tablet 1,000 mg PO Q8H PRN pain #90 tabs 12/20/19 10/02/22 albuterol sulfate 90 mcg/actuation 2 puff inhalation Q4H PRN PRN 02/22/21 10/02/22 aerosol inhaler (Proventil HFA) bronchospasm #18 grams naproxen sodium 220 mg capsule 220 mg PO BID PRN 12/08/21 10/02/22 (Aleve) doxazosin 4 mg tablet 4 mg PO HS #90 tabs 01/17/22 10/02/22 meclizine 25 mg tablet 25 mg PO DAILY PRN dizziness #30 03/08/22 10/02/22 tabs fluticasone propionate 110 2 puff inhalation BID asthma #3 07/02/22 10/02/22 mcg/actuation HFA aerosol inhaler vials (Flovent HFA) Previous Rx's Medication Instructions Recorded acetaminophen 500 mg tablet 1,000 mg PO Q8H PRN pain #90 tabs 12/20/19 albuterol sulfate 90 mcg/actuation 2 puff inhalation Q4H PRN PRN 02/22/21 aerosol inhaler (Proventil HFA) bronchospasm #18 grams doxazosin 4 mg tablet 4 mg PO HS #90 tabs 01/17/22 meclizine 25 mg tablet 25 mg PO DAILY PRN dizziness #30 03/08/22 tabs fluticasone propionate 110 2 puff inhalation BID asthma #3 07/02/22 mcg/actuation HFA aerosol inhaler vials (Flovent HFA) Allergies Allergy/AdvReac Type Severity Reaction Status Date / Time Sulfa (Sulfonamide Allergy Skin Rash Verified 10/02/22 11:30 Antibiotics) atorvastatin calcium AdvReac Intermediate myalgias Verified 10/02/22 11:30 [From Lipitor] and joint pain CAT/FELINE Allergy Intermediate ASTHMA Uncoded 10/02/22 11:30 EXACERBATION DUST Allergy Intermediate ASTHMA Uncoded 10/02/22 11:30 EXACERBATION MOLDS AND SMUTS Allergy Intermediate ASTHMA Uncoded 10/02/22 11:30 EXACERBATION General Stated Complaint: Chest Pain MAHENDRA: 3 Review of Systems Narrative: Review of Systems Constitutional: negative Eyes: negative ENT: negative Cardiovascular: chest pain Respiratory: Dyspnea Gastrointestinal: negative : negative Musculoskeletal: negative Skin: negative Neurologic: negative Psych: negative PFSH All Active Problems Drug exanthem (Acute) Vertigo (Acute) Rupture of left proximal biceps tendon (Acute) Osteoarthritis of left knee (Acute) Steroid Injection: 08/19/2022; 04/17/2022; 12/08/2021 Left knee injury (Acute) Benign prostate hyperplasia (Chronic) 04/2021-moderately enlarged prostate by exam Hyperlipidemia (Acute) Heart murmur (Acute) c/w benign murmur 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 Allergic rhinitis (Acute) Asthma (Acute) mild intermittent Medical History Anxiety Asthma Balance disorder Benign prostatic hyperplasia Depression Esophageal reflux Generalized osteoarthrosis right hip replacement Hearing loss LEFT SIDE WITH AID Hiatal hernia Hyperlipidemia Kidney stone Nasal polyp Obstructive sleep apnea syndrome Osteoarthritis RIGHT HIP REPLACEMENT Restless leg syndrome Rosacea Sciatica right; back surgery 1993 Umbilical hernia Surgical History BACK SURGERY (~1993) Colonoscopy - MAC (06/03/16) 1999-NEG H/O umbilical hernia repair History of spinal surgery Repair of inguinal hernia Rotator Cuff Repair (~2002) Status post hip replacement RIGHT Status post inguinal hernia repair Status post rotator cuff repair Status post vasectomy 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 Father Diabetes Essential hypertension Heart disease Hyperlipidemia Brother Essential hypertension Hyperlipidemia Asthma Brother Essential hypertension Hyperlipidemia Grandfather Heart disease ? OF HEART DISEASE Grandfather Myocardial infarction Grandmother Personal history of malignant neoplasm ? CERVICAL Grandmother No problems noted. Social History Smoking/Tobacco Use Status: Never Smoking risk assessment performed?: Yes Alcohol Intake: former Drug use: Never Substance use type: does not use Household members: spouse Housing: house Pets and animals: Yes Pets and animals: cat(s) Current gender identity: male What is your relationship status?: Panel score (0-1 are the most socially isolated patients): 1 Do you feel safe at home: Yes Do you feel safe in your relationship?: Yes Exam Narrative Exam Narrative: Physical Examination General: alert, awake, cooperative, resting comfortably, no acute distress HEENT: normocephalic, atraumatic; PERRL, EOM intact, conjunctiva normal; no nasal discharge; moist mucous membranes, oral and pharyngeal mucosa normal, tolerating secretions Neck: supple, trachea midline; full ROM Chest: normal to inspection Respiratory: normal respiratory effort, speaking in full sentences, clear to auscultation, no wheezing, rales or rhonchi Cardiac: regular rate, regular rhythm, S1S2 intact, no murmurs rubs or gallops GI: abdomen soft, non-tender, non-distended; no palpable mass or hepatosplenomegaly Skin: no lesions, rashes or trauma appreciated Neuro: AAOx3, normal speech, moving all extremities Extremities: No peripheral edema Psych: Appropriate mood and affect Course Vital Signs Vital signs: Vital Signs Pulse 63 10/02/22 11:26 Respiratory Rate 14 10/02/22 11:26 Blood Pressure 164/76 H 10/02/22 11:26 Pulse Oximetry 98 10/02/22 11:26 Temperature Source Skin 10/02/22 11:26 Pulse 63 10/02/22 11:26 Respiratory Rate 14 10/02/22 11:26 Respiratory Effort Normal 10/02/22 11:26 Blood Pressure 164/76 H 10/02/22 11:26 Blood Pressure Position Supine 10/02/22 11:26 Pulse Oximetry 98 10/02/22 11:26 Oxygen Delivery Method Room Air 10/02/22 11:26 Oxygen Flow Rate 0 10/02/22 11:26 Pain Level 5 10/02/22 11:26
[2022-10-02 12:26] LABS: Abs Immature Grans 0.01 10^3/uL (0.0-0.06); Absolute Basophil Count 0.07 10^3/uL (0.0-0.2); Absolute Eosinophil Count 0.25 10^3/uL (0.0-0.7); Absolute Lymphocyte Count 0.98 10^3/uL (1.2-3.4); Absolute Monocyte Count 0.76 10^3/uL (0.1-0.8); Absolute Neutrophil Count 2.97 10^3/uL (1.2-6.7); Basophils % 1.4; HCT 44.2 % (40.0-50.0); HGB 15.4 g/dL (13.5-17.5); Immature Grans % 0.2; Lymphocytes % 19.4; MCH 32.2 pg (27.0-33.0); MCHC 34.8 % (32.0-36.0); MCV 93 fL (80-95); MPV 8.7 fL (8.0-11.0); Monocytes % 15.1; Neutrophils % 58.9; Platelet Count 192 10^3/uL (130-400); RBC 4.78 10^6/uL (4.36-5.78); RDW 13.1 % (11.8-14.1); RDW-SD 45.1 fL; WBC 5.04 10^3/uL (4.4-10.8)
[2022-10-02 12:37] LABS: PTT Activated 24.7 sec (21.5-31.9)
[2022-10-02 12:48] LABS: ALT 29 U/L (16-63); AST 21 U/L (15-37); Albumin 3.7 g/dL (3.4-5.0); Alkaline Phosphatase 87 U/L (46-116); Anion Gap 8.1 mmol/L (3-11); BUN 18 mg/dL (7-18); Bilirubin, Total 0.8 mg/dL (0.2-1.0); CO2 25.9 mmol/L (21.0-32.0); Chloride 105 mmol/L (98-107); Glucose 89 mg/dL (74-106); NT-proBNP 69 pg/mL (<300); Potassium 4.2 mmol/L (3.5-5.1); Sodium 139 mmol/L (136-145); TSH (W/Ref FT4) 1.43 uIU/mL (0.36-3.74); Total Protein 7.1 g/dL (6.4-8.2); Troponin I < 50 ng/L (<or=60)
[2022-10-02 13:19] VITALS: RESP 16
[2022-10-02 14:07] VITALS: BP 143/82; PULSE 55; RESP 16; O2SAT 97
[2022-10-05 12:38] LABS: Lyme Ab w Rflx to Lyme Confirm Negative (Negative)
[2022-10-05 20:34] LABS: Anaplasma phagocytophilum Negative (Negative); B. miyamotoi PCR Negative (Negative); Babesia divergens/MO-1 Negative (Negative); Babesia duncani Negative (Negative); Babesia microti Negative (Negative); Ehrlichia chaffeensis Negative (Negative); Ehrlichia ewingii/canis Negative (Negative); Ehrlichia muris eauclairensis Negative (Negative)
== END 2022-10-02 14:11 | disposition home or self-care (01) ==
PROVIDERS: Emergency Provider Emergency Medicine; PCP Family Medicine
DX: R07.9 Chest pain, unspecified (principal)
CPT/HCPCS: 36415; 80053; 87798; 93005; 99283; 71046; 83880; 84443; 84484; 85025; 85610; 85730; 86618; 93010; 99284

== ENCOUNTER 2022-10-07 08:56 | Outpatient (CLI) | payer MEDICARE, SELFPAY ==
--- NOTE | 2022-10-07 08:45 | RT.EKG_ITS ---
APPROVED REPORT Exam: Resting ECG Reason for Exam: ED FU chest pain Patient Location: O HR:57 bpm ECG Measurements Heart Rate 57 AXIS GA 224 P 60 QRSd 152 QRS 57 QT 448 T 24 QTc 437 Conclusion Sinus rhythm...normal P axis, V-rate 50- 99 Supraventricular bigeminy...bigeminy string>4 w/ SV complexes Prolonged GA interval...GA >220, V-rate 50- 90 Right bundle branch block...QRSd>120, terminal axis(90,270)
== END 2022-10-07 08:57 | disposition home or self-care (01) ==
LOC: DI.CM 08:57
PROVIDERS: PCP Family Medicine; Visit Provider Family Medicine
DX: R07.9 Chest pain, unspecified (principal)
CPT/HCPCS: 93010

== ENCOUNTER → 2022-10-13 00:46 | Outpatient (CLI) | payer MEDICARE, SELFPAY ==
--- NOTE | 2022-10-13 07:15 | DI.NM_ITS ---
APPROVED REPORT Exam: Pharmacologic Patient Location: Out-Patient Room/Bed: Stress Nurse: Nataly Ugalde RN Ordering Provider:CONCEPCIÓN BAUTISTA, Contact Number: [phone] BMI: 26.12 Baseline Rhythm: Sinus Rhythm, RBBB Comment: Frequent PAC's Indications: Chest pain Medical History Medical History: Chest pain, vertigo, HLD, heart murmur, hearing loss, asthma Cardiac Medications: Omeprazole, HLD, asthma Allergies: Sulfa, atorvastatin, cat/felinw, dust and mold Cardiac Risk Factors: Family hx, HLD, asthma Previous Cardiac Procedures: Cardiac cath approx 10 years ago Pretest Chest Pain Characteristics: 210 chest pressure Exercise History: Indeterminate Physical Disabilities: None Lung Sounds: Clear to auscultation Heart Sounds: Irregular Stress Test Details Test: Pharmacologic stress was paired with low level exercise. Reason for pharmacologic stress test: RBBB, nurse concern. Nuclear Acquisition: Rest Tc-99m/Stress Tc-99m 1 day Rest Isotope: Tc-99m Sestamibi. Dose: 10.0 Date: 10/13/2022 Injection Time: 0920 Stress Isotope: Tc-99m Sestamibi. Dose: 30.0 Date: 10/13/2022 Injection Time: 1102 HR Resting HR Supine: 53 bpm Max Heart Rate (APMHR): 144.859489 bpm Resting HR Standin bpm Target HR (85% APMHR): 122.444822 bpm Max HR Achieved: 99 bpm % of APMHR: 68.75 Recovery HR: 70 bpm BP Resting BP Supine: 146/64 mmHg Resting BP Standin/82 mmHg Max BP: 142/82 mmHg Recovery BP: 124/74 mmHg ECG Resting ECG: Sinus Rhythm, RBBB Ectopy: Frequent PAC's Stress ECG: Sinus Rhythm, RBBB ST Change: Nondiagnostic low heart rate Arrhythmia: Frequent PAC's Recovery ECG: Sinus Rhythm, RBBB Recovery ST Change: Nondiagnostic low heart rate Recovery Arrhythmia: Frequent PAC's Clinical Stress Symptoms: Dyspnea, 3/10 chest pressure Angina Score: Non-Limiting Rate Pressure Product: 11732 Stress ECG Conclusion 1. Resting electrocardiogram showed right bundle branch block 2. Patient underwent testing using low-level exercise and pharmacologic stress with regadenoson 3. Peak heart rate achieved was 69% of predicted for age 4. Electrocardiographic portion of the test was nondiagnostic 5. Atrial premature contractions were noted 6. See MPI report Stress Test Summary STAGE HR BP SpO2 Symptoms NOTES Supine 53 146/64 96 2/10 chest pain Standing 57 142/82 96 2/10 chest pain 1 min post Lexiscan injection 86 128/70 96 3/10 chest pressure, mild-mod dyspnea 3 min post Lexiscan injection 74 130/72 96 Chest pain at basline, dyspnea resolved. 6 min post Lexiscan injection 70 124/74 98 Baseline chest pressure MPI Conclusion Myocardial perfusion is normal. There is no ischemia or evidence of prior infarction EF 54% with normal wall motion Radiologist Interpretation Radiologist agrees with Corn Sheller's Interpretation. Radiologist Interpretation by: Christen Ghosh MD Interpretation Date/Time: 10/14/2022 16:05:33
[2022-10-13] MEDS: Regadenoson 0.4 MG/5 ML SYR IVP (11:14)
== END ==
PROVIDERS: PCP Family Medicine; Visit Provider Family Medicine
DX: R07.9 Chest pain, unspecified (principal)
CPT/HCPCS: 78452; 93016; 93018; 93017; J2785

== ENCOUNTER 2022-11-23 04:50 | Outpatient (CLI) | payer MEDICARE, SELFPAY ==
[2022-11-23 12:39] LABS: HCT 44.2 % (40.0-50.0); HGB 15.1 g/dL (13.5-17.5); MCH 32.3 pg (27.0-33.0); MCHC 34.2 % (32.0-36.0); MCV 94 fL (80-95); MPV 9.4 fL (8.0-11.0); Platelet Count 220 10^3/uL (130-400); RBC 4.68 10^6/uL (4.36-5.78); RDW 13.1 % (11.8-14.1); RDW-SD 45.5 fL
[2022-11-23 13:00] LABS: Anion Gap 6.7 mmol/L (3-11); BUN 21 mg/dL (7-18); CO2 26.3 mmol/L (21.0-32.0); CREATININE 1.1 mg/dL (0.70-1.30); Calcium 9.2 mg/dL (8.5-10.1); Chloride 101 mmol/L (98-107); Estimated GFR 69.57 (mL/min/1.73m2); Glucose 88 mg/dL (74-106); Potassium 4.1 mmol/L (3.5-5.1); Sodium 134 mmol/L (136-145)
== END 2022-11-23 04:51 | disposition home or self-care (01) ==
LOC: LBO 04:50
PROVIDERS: PCP Family Medicine; Visit Provider Student in an Organized Health Care Education/Training Program
DX: M17.12 Unilateral primary osteoarthritis, left knee (principal); Z01.818 Encounter for other preprocedural examination
CPT/HCPCS: 36415; 80048; 85027

== ENCOUNTER 2022-11-23 10:13 | Outpatient (CLI) | payer MEDICARE, SELFPAY ==
--- NOTE | 2022-11-23 09:30 | DI.RAD_ITS ---
Exam(s) XR KNEE LT 1V XR STANDING ALIGNMENT EXAM: XR STANDING ALIGNMENT CLINICAL HISTORY: left knee DJD. TECHNIQUE: 2D digital imaging was performed. Standing AP views were performed from the pelvis throu gh the ankles. Lateral view of the left knee COMPARISON: CR XR KNEE LT 3V AP,LAT,THERESE from 10/14/2021 CR XR KNEE LT 1V from 11/23/2022 FINDINGS: BONES: No acute fracture is present. No bony destructive lesion is seen. Leg length discrepancy: JOINTS: Knees: Severe narrowing medial femoral tibial joint space of left knee. Mild degenerative ch anges of the right knee. Mild chondrocalcinosis. Ankles: Mild bilateral ankle joint space narrowing. Hips: Bilateral total hip prostheses. SOFT TISSUE: Soft tissue calcifications medial left thigh. IMPRESSION: Severe degenerative changes left medial femoral tibial joint. . No significant leg length discrepancy. DATA REPOSITORY: RADIATION DOSE DELIVERED:
== END 2022-11-23 10:14 | disposition home or self-care (01) ==
LOC: DIORS 10:13
PROVIDERS: PCP Family Medicine; Visit Provider Physician Assistant
DX: M17.12 Unilateral primary osteoarthritis, left knee (principal); Z01.818 Encounter for other preprocedural examination
CPT/HCPCS: 73560; 77073

== ENCOUNTER 2022-12-22 05:51 | Day surgery (SDC) | payer MEDICARE, SELFPAY ==
[2022-12-22] VITALS (11 sets, daily range): BP systolic 87–141; BP diastolic 55–88; PULSE 47–62; RESP 15–21; TEMP 36.3–36.7; O2SAT 94–98; BMI 25.7
[2022-12-22] MEDS: Gabapentin 300 MG CAP PO (06:34)
[2022-12-22] MEDS: Acetaminophen 500 MG TAB 1000 MG PO (06:34)
[2022-12-22] MEDS: Celecoxib 200 MG CAP 400 MG PO (06:34)
--- NOTE | 2022-12-22 06:57 | W.ANESPRE ---
General Info Date of Service Date Performed: 12/22/22 Height: 5 ft 6 in Weight: 72.3 kg Body Mass Index (BMI): 25.7 Surgical Procedure: Operation Date: 12/22/22 07:40 Proposed Procedure Side Surgeon p Knee Total Arthroplasty Left Danny Graham MD Meds Allergies and Home Medications Allergies Allergy/AdvReac Type Severity Reaction Status Date / Time Sulfa (Sulfonamide Allergy Skin Rash Verified 12/22/22 06:13 Antibiotics) atorvastatin calcium AdvReac Intermediate myalgias Verified 12/22/22 06:13 [From Lipitor] and joint pain CAT/FELINE Allergy Intermediate ASTHMA Uncoded 12/22/22 06:13 EXACERBATION DUST Allergy Intermediate ASTHMA Uncoded 12/22/22 06:13 EXACERBATION MOLDS AND SMUTS Allergy Intermediate ASTHMA Uncoded 12/22/22 06:13 EXACERBATION Home Medication Medication Instructions Recorded acetaminophen 500 mg tablet 1,000 mg (2 x 500 mg) PO Q8H PRN 12/20/19 pain #90 tabs naproxen sodium 220 mg capsule 220 mg PO BID PRN 12/08/21 (Aleve) meclizine 25 mg tablet 25 mg PO DAILY PRN dizziness #30 03/08/22 tabs fluticasone propionate 110 2 puff inhalation BID asthma #3 07/02/22 mcg/actuation HFA aerosol inhaler vials (Flovent HFA) aspirin 81 mg tablet,delayed 81 mg PO DAILY #90 tabs 10/07/22 release albuterol sulfate 90 mcg/actuation 2 puff inhalation Q4H PRN PRN 11/24/22 aerosol inhaler (Proventil HFA) bronchospasm #18 grams doxazosin 4 mg tablet 4 mg PO HS #90 tabs 11/24/22 omeprazole 40 mg capsule,delayed 40 mg PO DAILY #90 caps 11/24/22 release Current Visit Medications: Current Medications Generic Name Dose Route Start Last Admin Trade Name Freq PRN Reason Stop Dose Admin Acetaminophen 1,000 mg 12/22/22 06:00 12/22/22 06:34 Acetaminophen 500 Mg Tab PO 12/22/22 16:00 1,000 mg PREOP EUSEBIO Administration Celecoxib 400 mg 12/22/22 06:00 12/22/22 06:34 Celecoxib 200 Mg Cap PO 12/22/22 16:00 400 mg PREOP EUSEBIO Administration Gabapentin 300 mg 12/22/22 06:00 12/22/22 06:34 Gabapentin 300 Mg Cap PO 12/22/22 16:00 300 mg PREOP EUSEBIO Administration Tranexamic Acid 1,000 mg/ 60 mls @ 360 mls/hr 12/22/22 06:00 Sodium Chloride IVPB 12/22/22 16:00 PREOP EUSEBIO Ringer's Solution 1,000 mls @ 80 mls/hr 12/22/22 06:00 IV 01/20/23 23:59 INFUSION EUSEBIO Cefazolin Sodium/Dextrose 2 gm in 50 mls @ 100 mls/hr 12/22/22 06:00 Ancef Duplex IVPB 01/20/23 23:59 PREOP EUSEBIO IV Miscellaneous Supplies 1 each 12/22/22 06:00 Iv Access IV 01/20/23 23:59 DIRECTED EUSEBIO Sodium Chloride 0 ml 12/22/22 06:00 Normal Saline Flush 10 Ml Syr IV 01/20/23 23:59 PRN PRN Sodium Chloride 0 ml 12/22/22 06:00 Normal Saline 10 Ml Vial IJ 01/20/23 23:59 DIRECTED PRN Sterile Water 0 ml 12/22/22 06:00 Water,Injection,Sterile 10 Ml Vial IJ 01/20/23 23:59 DIRECTED PRN PFSH Active Problems Active Problems: Problem Status Onset Code Chest pain R07.9 Drug exanthem L27.0 Vertigo R42 Rupture of left proximal biceps tendon S46.212A Osteoarthritis of left knee M17.12 Left knee injury S89.92XA Benign prostate hyperplasia N40.0 Hyperlipidemia E78.5 Heart murmur R01.1 Asymmetrical sensorineural hearing loss H90.3 Allergic rhinitis J30.9 Asthma J45.909 Medical History Medical History Balance disorder Anxiety Depression Hyperlipidemia Umbilical hernia Sciatica right; back surgery 1993 Rosacea Restless leg syndrome Osteoarthritis RIGHT HIP REPLACEMENT Obstructive sleep apnea syndrome CPAP Nasal polyp Kidney stone Hiatal hernia Hearing loss LEFT SIDE WITH AID Generalized osteoarthrosis right hip replacement Esophageal reflux Benign prostatic hyperplasia Asthma Surgical History Surgical History Status post laser lithotripsy of ureteral calculus H/O umbilical hernia repair Status post hip replacement RIGHT Status post vasectomy Total replacement of hip Left MARYLIN Rotator Cuff Repair (~2002) Left Repair of inguinal hernia Right Bilateral hernia repair as 6 yo Colonoscopy - MAC (06/03/16) 1999-NEG BACK SURGERY (~1993) Right sciatica Tobacco Smoking/Tobacco Use Status: Never Passive smoking exposure: No Alcohol Alcohol Intake: current Alcohol intake frequency: 0-2 drinks per day Alcohol type: wine Substance Use Substance use: Never Substance use type: does not use Details: alcohol: t-3, one glass, pt. states he has been drinking a glass of wine nightly Vital Signs and Lab Results Vital Signs Most Recent Vital Signs in EMR: Most Recent Vital Signs Temp Pulse Resp BP Pulse Ox 36.6 C 60 16 141/88 H 97 12/22/22 06:20 12/22/22 06:20 12/22/22 06:20 12/22/22 06:20 12/22/22 06:20 Lab Results Blood Type / Crossmatch: No Data to Display Complete Blood Count: White Blood Count 4.40 10^3/uL (4.4-10.8) 11/23/22 12:20 Red Blood Count 4.68 10^6/uL (4.36-5.78) 11/23/22 12:20 Hemoglobin 15.1 g/dL (13.5-17.5) 11/23/22 12:20 Hematocrit 44.2 % (40.0-50.0) 11/23/22 12:20 Platelet Count 220 10^3/uL (130-400) 11/23/22 12:20 Complete Metabolic Panel: Sodium 134 mmol/L (136-145) L 11/23/22 12:20 Potassium 4.1 mmol/L (3.5-5.1) 11/23/22 12:20 Chloride 101 mmol/L (98-107) 11/23/22 12:20 Carbon Dioxide 26.3 mmol/L (21.0-32.0) 11/23/22 12:20 BUN 21 mg/dL (7-18) H 11/23/22 12:20 Creatinine 1.1 mg/dL (0.70-1.30) 11/23/22 12:20 Est GFR (CKD-EPI 2020) 69.57 (mL/min/1.73m2) 11/23/22 12:20 Calcium 9.2 mg/dL (8.5-10.1) 11/23/22 12:20 Glucose 88 mg/dL (74-106) 11/23/22 12:20 Liver Function Panel: No Data to Display Coagulation Panel: No Data to Display Cardiac Panel: No Data to Display Arterial Blood Gas: No Data to Display Venous Blood Gas: No Data to Display Pancreas Panel: No Data to Display Thyroid Panel: No Data to Display Infectious Disease: No Data to Display Blood Cultures: No Data to Display Toxicology Panel: No Data to Display Anesthesia Assessment and Plan Anesthesia History Personal History: No History of Anesthesia Complications Family History: No Family History of Anesthesia Complications Exercise Tolerance Exercise Tolerance: Metabolic Equivalents>4 Pertinent Negatives Pertinent Negatives: No Symptoms of GERD Cardiac & Pulmonary Exam Cardiac Exam: Normal S1/S2 Heart Sounds Pulmonary Exam: Clear Bilateral Breath Sounds Implantable Cardiac Device Does patient have a Pacemaker or an ICD?: No Airway Exam Known Difficult Airway: No Mallampati Class: 2 Mouth Opening: Normal (> 3cm) Thyromental Distance: Greater than 3 cm Neck Range of Motion: Full ROM Neck Circumference: Normal Teeth Condition: Normal Dentition ASA Classification ASA Score: ASA 2 Emergency Case?: No NPO Status NPO Status: NPO Clears >2 hours, Solids >8 hours Anesthesia Plan Resuscitation Status: Full Code Anesthesia Technique: Spinal Anesthesia Airway Planned: Natural Airway Monitors Used: Standard Monitors
[2022-12-22] MEDS: Lactated Ringers 1,000 ML 80 ML IV (07:00)
[2022-12-22] MEDS: ceFAZolin 2 GM/50 ML BAG IVPB (07:45)
--- NOTE | 2022-12-22 07:58 | W.ANESNERVE ---
Nerve Block Single Injection Procedure Date and Time Date Performed: 12/22/22 Procedure Start: 07:15 Location Where Procedure Performed Procedure Location: Day Surgery Unit (215) Reason Performed: Postoperative Analgesia Requesting Provider: Danny Graham Timeout Performed Timeout Performed: Yes Monitoring Used ECG, Blood Pressure, SpO2 and See EMR for corresponding vital signs Sterility Sterility: Hand Hygiene, Surgical Cap, Surgical Mask, Sterile Gloves, Eye Protection and Chlorhexidine Sedation Given During Procedure Sedation Given (Indicate Dose Given): Versed IV (Documented in Anesthesia record) Dose:: 2mg IVP Patient Mental Status Patient Mental Status: Sedate with meaningful communication Nerve Block 1st Nerve Block: Laterality: Left Block Type: Adductor Canal Ultrasound Image Saved?: Yes Needle / Catheter Used: 100mm SonoPlex II Local Anesthetic Bolus (Indicate Dose Given): Lidocaine used for local infiltration of skin, Injected in 3-5ml increments after negative blood aspiration, Blood noted on aspiration (Repositioned more cephalad in adductor canal. Neg. aspiration.) and Ropivacaine 0.5% Dose:: 0.5%/20cc (100mg) Additives (Indicate Dose Given): Epinephrine to make 1:200,000 (5mcg/ml) Dose:: 100mcg (1:200,000) Ultrasound: Sterile probe cover and gel used Nerve Stimulator: Not Used Paresthesia: None Procedure Tolerated: No Complications and Patient tolerated well Procedure Outcome: Successful Performed By: Mark Gonzalez
--- NOTE | 2022-12-22 11:08 | IN_ITS ---
PT Notes Visit Reasons: Left knee DJD Physical Therapy Day Surgery Initial Evaluation Date: 12/22/2022 Referring Doctor: EDYTA Bond PT Orders: PT CONSULT: S/P Ortho surgery Precautions: WBAT on left LE with AD. Patient Profile/Admitting Diagnosis: Surya is a 77-year-old male with degenerative joint disease of the left knee and status post left total knee arthroplasty on postoperative day 0. PMHX: Medical History (Updated 11/23/22 @ 11:17 by Daniela Ponce) Anxiety Asthma Balance disorder Benign prostatic hyperplasia Depression Esophageal reflux Generalized osteoarthrosis right hip replacement Hearing loss LEFT SIDE WITH AID Hiatal hernia Hyperlipidemia Kidney stone Nasal polyp Obstructive sleep apnea syndrome CPAP Osteoarthritis RIGHT HIP REPLACEMENT Restless leg syndrome Rosacea Sciatica right; back surgery 1993 Umbilical hernia Surgical History (Updated 11/23/22 @ 11:27 by Daniela Ponce) BACK SURGERY (~1993) Right sciatica Colonoscopy - MAC (06/03/16) 1999-NEG H/O umbilical hernia repair Repair of inguinal hernia Right Bilateral hernia repair as 6 yo Rotator Cuff Repair (~2002) Left Status post hip replacement RIGHT Status post laser lithotripsy of ureteral calculus Status post vasectomy Total replacement of hip Left MARYLIN Social History/Home Situation: Patient lives with in a private home with three steps to enter with a rail on the left side going up. Independent with all mobility ADLs with no assistive device. Retired professor from . Equipment Owned/DME: [employer], FWW that has been hindlegs hard-taped therefore could not be adjusted to height Subjective: Reports 1/10 pain level in the L knee. Denies headache, chest pain, and lightheadedness throughout session. Objective: General Observation: Supine in bed. FAUSTO wraps to L LE. Cryocuff to L knee. Vicky present in room. Mental Status: A and O x 4 Pain: As above ROM: Right Lower Extremity: Hip flexion WFL. Hip abduction WFL. Knee flexion WFL. Ankle dorsiflexion WFL. Ankle plantarflexion WFL. Left Lower Extremity: Hip flexion WFL. Hip abduction WFL. Knee flexion 10 degrees to 100 degrees. Knee extension -10 degrees. Ankle dorsiflexion WFL. Ankle plantarflexion WFL. Strength: Right Lower Extremity: Hip flexors 5/5. Hip abductors 5/5. Knee flexors 5/5. Knee extensors 5/5. Ankle dorsiflexors 5/5. Ankle plantarflexors 5/5. Left Lower Extremity:Hip flexors 4/5. Hip abductors 4/5. Knee flexors 4/5. Knee extensors 3-/5. Ankle dorsiflexors 5/5. Ankle plantarflexors 5/5. Sensation: Intact as to pain and light pressure in BLE Bed Mobility/Transfers: Supine to sit supervision Sit to stand stand by assist Stand to sit stand by assist Bed to chair stand by assist Gait: Facilitated safe and correct performance of level surface ambulation covering a distance of 150 feet using front wheeled walker with step through heel toe gait pattern requiring only standby assist with minimal verbal cueing for increasing knee flexion on the left side during swing phase of gait and for movement sequence/limb advancement. No SOB. No SOB. Stairs: Guided patient with safe and correct negotiation of 6 x 4 inch steps and 4 x 6 inch steps holding onto 1 rail using step to gait pattern requiring standby assist with minimal verbal cueing for movement sequence and increased flexion on the left during each ascent. Balance: Static Sitting: Normal Dynamic Sitting: Normal Static Standing: Fair Dynamic Standing: Fair Special Tests: Mobility Limitations Standardized Measure [facility]-P[facility] 6 clicks Basic Mobility Inpatient Short Form: Raw Score: 24 CMS Score: 0% deficit Informed Consent/Education: Patient instructed in purpose of PT consult. Packet containing TKA exercise protocol has been given to patient. Education and training on initial set of exercises that can be done at home have been completed with patient. Trained patient with correct performance of exercises below to maximize motor control, joint flexibility, soft tissue extensibility of the L knee musculature: Access Code: [email or web address] URL: [email or web address] Date: 12/22/2022 Prepared by: Cyn Solis Exercises - Supine Quad Set - 1 x daily - 7 x weekly - 1 sets - 10 reps - 5 hold - Supine Heel Slide - 1 x daily - 7 x weekly - 1 sets - 10 reps - 5 hold - Supine Ankle Pumps - 1 x daily - 7 x weekly - 1 sets - 10 reps - 5 hold - Small Range Straight Leg Raise - 1 x daily - 7 x weekly - 1 sets - 10 reps - 5 hold - Seated March - 1 x daily - 7 x weekly - 1 sets - 10 reps - 5 hold Assessment: Patient requires the use of a front wheeled walker for all mobility ADL performance to maximize independence and reduce fall risk. Patient presents with clinical signs and symptoms consistent with current/admitting diagnoses that have resulted to mobility limitations, gait instability, generalized weakness, and impairment of motor control as demonstrated by the following impairment level findings: 1. Decreased strength to left knee major muscle groups 2. Impaired standing balance 3. Limitation of joint range of motion in left knee Impairments are contributing to the following functional limitations: 1. Inability to safely ambulate without assistive device 2. Increase completion time for mobility ADL performance 3. Increased fall risk Patient is assessed as a 69378 moderate complexity based on the following: History: 77-year-old male with impairment level findings, functional limitations, and past medical history as indicated above Examination: Demonstrable impairment in strength, balance, and mobility level with underlying impairments and functional limitations as documented above Presentation: Evolving Decision Makin moderate complexity Goals: N/A. PT evaluation and 1-2 treatment sessions only for functional mobility training using recommended AD and for HEP instruction. Plan of Care/Treatment Plan: N/A. PT evaluation and 1-2 treatment session only for functional mobility training using recommended AD and for HEP instruction. DISCHARGE RECOMMENDATIONS: Home when medically cleared by orthopedic surgeon. Recommend outpatient PT services in order to optimize functional mobility outcomes and facilitate return to independent community ambulation without an assistive device. TREATMENT CODE/TIME: 58696 x 25 minutes for 1 unit, 54029 x 17 minutes for 1 unit beginning at 11:08 AM. Thank you for the opportunity to participate in the care of this patient. Cyn Solis PT, DPT, CLT [facility] [place], [place]
--- NOTE | 2022-12-22 11:21 | DSE_ITS ---
Date of service: 12/22/22 Time of Service: 12:04 DS: Diagnosis Discharge Diagnosis (1) Osteoarthritis of left knee: Status: Chronic Discharge Plan Disposition Patient Disposition: Home Condition: Good Discharge Details Reason For Visit: Left knee DJD Attending Provider: Danny Graham Primary Care Provider: Uvaldo Anderson Home Meds and New Rx's Prescriptions: New celecoxib [Celebrex] 200 mg capsule 200 mg PO BID PRNQty: 60 0RF Rx Instructions: Take one tablet twice daily for pain and inflammation aspirin 81 mg tablet,delayed release (DR/EC) 81 mg PO BID 30 Days Qty: 60 0RF acetaminophen 500 mg tablet 1,000 mg PO Q8H PRN Qty: 90 0RF Rx Instructions: Take two tablets up to every 8 hours as needed for pain dexamethasone 4 mg tablet 4 mg PO DAILY Qty: 2 0RF Rx Instructions: Take one tablet once daily for two days docusate sodium [Colace] 100 mg capsule 100 mg PO BID Qty: 30 0RF gabapentin 300 mg capsule 300 mg PO QHS Qty: 14 0RF Rx Instructions: Take one tablet at bedtime oxycodone 5 mg tablet 5 mg PO Q4H PRNQty: 18 0RF Rx Instructions: Take one tablet up to every 4 hours as needed for severe postoperative pain Continued albuterol sulfate [Proventil HFA] 90 mcg/actuation HFA aerosol inhaler 2 puff Inhalation Q4H PRN PRN (Reason: bronchospasm) Qty: 18 6RF doxazosin 4 mg tablet 4 mg PO HS Qty: 90 3RF omeprazole 40 mg capsule,delayed release(DR/EC) 40 mg PO DAILY Qty: 90 3RF fluticasone propionate [Flovent HFA] 110 mcg/actuation HFA aerosol inhaler 2 puff Inhalation BID Qty: 3 3RF meclizine 25 mg tablet 25 mg PO DAILY PRN (Reason: dizziness) Qty: 30 2RF Discontinued aspirin 81 mg tablet,delayed release (DR/EC) 81 mg PO DAILY Qty: 90 3RF naproxen sodium [Aleve] 220 mg capsule 220 mg PO BID PRN acetaminophen 500 mg tablet 1,000 mg PO Q8H PRN (Reason: pain) Qty: 90 3RF Discharge Instructions Additional Instructions: Total Knee Discharge Instructions Activity: The most important activity is to walk and to work on gentle motion (both flexion and extension). You should try to take short walks a few times a day. It is important that when resting you work on keeping the knee straight. Avoid putting a pillow behind the knee as this will encourage flexion. Work on range of motion exercises as provided by Physical Therapy. - Start outpatient physical therapy within 2 weeks. - You should wear the RYAN hose on both legs for 2 weeks. You may remove these at night. You may also use any compression sock in place of the RYAN hose. - Utilize [employer] to review exercises, see videos on exercises and obtain basic information pertaining to your surgery and your recovery. Dressing: Remove the Trell wrap by 2 days after your surgery and put on the RYAN stocking given to you from the hospital. Keep the surgical dressing (underneath the TRELL wrap) in place for at least one week. After the first week it may be removed and replaced with light gauze and tape or nothing. The wound and dressing may get wet after 3 days but avoid soaking the dressing or otherwise it will need to be changed. Many people prefer covering the dressing with cling wrap (saran wrap) to minimize it from getting soaked. If it gets wet, just pat dry. If it starts to peel off then it will need to be changed. Medications: - You should take Tylenol and anti-inflammatory Celebrex as your primary pain control medications. If the Celebrex is too expensive or not covered, please call the office for another alternative (Advil/Ibuprofen or Naproxen/Aleve) - You have been prescribed a stronger pain medication Oxycodone for breakthrough pain, take as needed as prescribed. - You take a stomach acid reduction agent Omeprazole at baseline - continue with this medication to help reduce stomach acid and reflux. - You have been prescribed Gabapentin to take at night for restlessness and nerve pain. - You will be taking Aspirin 81mg twice a day for DVT prevention unless instructed otherwise. - You have also been prescribed Decadron to take to control post-operative nause a and pain. You will start this tomorrow. - If you have constipation you should take Colace (which has been prescribed) or Miralax (which is available [id number]). It takes most people 3-4 days to have a bowel movement. Follow-up: 2 weeks If you have any acute concerns or questions, please do not hesitate to contact the office at [phone]. You may contact Dr. Graham with any questions after hours through the hospital at [phone] or on his cell phone at [phone]. Stand Alone Forms: Anesthesia Discharge Inst., [place].Nerve Block Instructions, Reyna Valentin ([facility]) Referrals: Danny Graham MD [ [facility] STAFF PHYSICIAN] - Equipment/Supplies: Walker Activity:: Activity as Tolerated Remove Dressings/Wound Care:: Do Not Remove Shower/Bathe:: 72 hours and Cover Diet:: As Tolerated Discharge Orders Discharge Orders: Discharge Order (Routine); Ordered 12/22/22 Ordered By: Daniela Ponce DS: Summary Time Spent with Patient providing and/or coordinating discharge services: Less than 30 minutes Status at Discharge Functional status at discharge: uses cane/walker Overall status at discharge: patient is progressing back to baseline Mental Status: mental status grossly normal Speech and Movement: speech and movement normal Mood: congruent mood Affect: normal affect Exam Psych Mental Status: mental status grossly normal Speech and Movement: speech and movement normal Mood: congruent mood Affect: normal affect DS: Data Vitals/I&O Vitals and I&O: Vital Signs Temperature 97.9 F 12/22/22 06:20 Pulse 60 12/22/22 06:20 Pulse Rhythm Regular 12/22/22 06:20 Respiratory Rate 16 12/22/22 06:20 Respiratory Depth Normal 12/22/22 06:20 Blood Pressure 141/88 H 12/22/22 06:20 Pulse Oximetry 97 12/22/22 06:20 Oxygen Delivery Method Room Air 12/22/22 06:20 Oxygen Flow Rate 0 12/22/22 06:20 Pain Level 1 12/22/22 06:20 Intake & Output 12/21/22 12/21/22 12/22/22 11:59 23:59 11:59 Weight 163 lb 0.016 oz 159 lb 6.307 oz PFSH All Active Problems Chest pain (Acute) Drug exanthem (Acute) Vertigo (Acute) Rupture of left proximal biceps tendon (Acute) Osteoarthritis of left knee (Chronic) Steroid Injection: 08/19/2022; 04/17/2022; 12/08/2021 Left knee injury (Acute) Benign prostate hyperplasia (Chronic) 04/2021-moderately enlarged prostate by exam Hyperlipidemia (Acute) Heart murmur (Acute) c/w benign murmur 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 - has bilateral but only wears right Allergic rhinitis (Acute) Asthma (Acute) mild intermittent Medical History Balance disorder Anxiety Depression Hyperlipidemia Umbilical hernia Sciatica right; back surgery 1993 Rosacea Restless leg syndrome Osteoarthritis RIGHT HIP REPLACEMENT Obstructive sleep apnea syndrome CPAP Nasal polyp Kidney stone Hiatal hernia Hearing loss LEFT SIDE WITH AID Generalized osteoarthrosis right hip replacement Esophageal reflux Benign prostatic hyperplasia Asthma Surgical History Status post laser lithotripsy of ureteral calculus H/O umbilical hernia repair Status post hip replacement RIGHT Status post vasectomy Total replacement of hip Left MARYLIN Rotator Cuff Repair (~2002) Left Repair of inguinal hernia Right Bilateral hernia repair as 6 yo Colonoscopy - MAC (06/03/16) 1998-NEG BACK SURGERY (~1993) Right sciatica Family History Mother No problems noted. Father Diabetes Essential hypertension Heart disease Hyperlipidemia Brother Essential hypertension Hyperlipidemia Asthma Brother Essential hypertension Hyperlipidemia Grandfather Heart disease ? OF HEART DISEASE Grandfather Myocardial infarction Grandmother Personal history of malignant neoplasm ? CERVICAL Grandmother No problems noted. Social History Smoking/Tobacco Use Status: Never Smoking risk assessment performed?: Yes Alcohol Intake: current Alcohol Intake frequency: 0-2 drinks per day Alcohol type: wine Drug use: Never Substance use type: does not use Details: alcohol: t-3, one glass, pt. states he has been drinking a glass of wine nightly Household members: spouse Housing: house Pets and animals: Yes Pets and animals: cat(s) Current gender identity: male What is your relationship status?: Panel score (0-1 are the most socially isolated patients): 1 Do you feel safe at home: Yes Do you feel safe in your relationship?: Yes Additional Social history: unable to assess privately Time Spent with Patient Time Spent with Patient: <45 minutes Time was spent: obtaining and/or reviewing separately otained hiistory, ordering medications,tests, procedures, indepentently interpreting results, counseling the patient and care coordination
--- NOTE | 2022-12-22 12:19 | W.PM.OP ---
Date of service: 12/22/22 Time of Service: 07:35 Operative Note Operative Note DATE OF PROCEDURE: 12/22/22 PRE-OP DIAGNOSIS: Left Knee Osteoarthritis POST-OP DIAGNOSIS: same PROCEDURE: Left Total Knee Replacement with Intraoperative Navigation SURGEON: Danny Graham GOLD BURNISHER: Daniela Ponce ANESTHESIA TYPE: Spinal Refer to Anesthesia Record ESTIMATED BLOOD LOSS: 100 PATHOLOGY: none sent TOURNIQUET TIME: 0 COMPLICATIONS: None Patient was transported to: PACU Patient's condition: stable Implants: 1. Depuy Attune Cementless Cruciate Retaining Femoral Component, Size 7 2. Depuy Attune Cementless Fixed Bearing Tibial Component, Size 6 3. Depuy Attune 7x7mm CR/FB Poly 4. Depuy Attune Patellar Component, Size 38 Indications: I have seen Junaid in clinic for symptoms of LEFT knee arthritis, confirmed with radiographic findings. Junaid has exhausted nonoperative methods and was having significant limitations in daily function and desired better function and less pain. I discussed the technical details of a knee replacement. I explained the risks of the procedure to include, but not limited to, bleeding, infection, pain, stiffness, fracture, damage to nerves and vessels, damage to muscles and tendons, loosening, need for repeat procedure, blood clot and cardiopulmonary demise. Despite these risks, Junaid elected to proceed. Findings: There was significant signs of arthritis throughout the knee. Procedure Description: Junaid was greeted in the preoperative holding area where the correct side was identified and marked. The consent was reviewed with the patient and signed. The history and physical was updated. All questions were answered. Preoperative mediacations were administered: Acetaminophen 1000mg, Celebrex 400mg, and Gabapentin 300mg. An adductor canal block was then administered by the anesthesia team in the PACU. Junaid was taken back to the operating room. A spinal anesthestic was then administered. The patient was placed into the supine position on the operating room table. A nonsterile tourniquet was placed high onto the leg. Posts were placed for positioning during the procedure. All bony prominences were well padded. Prophylactic antibiotics in the form of Cefazolin were administered. 1g of Tranxemic Acid was given intravenously within 30 minutes of incision. The left leg was then prepped with Chloraprep and draped in a standard fashion with impervious stockinette. A second prep with Chloraprep was performed prior to application of Iodine impregnated skin protection. A timeout to confirm correct identity, side and site, procedure, allergies, anesthesia, and medical concerns was performed. With the knee in some flexion, a midline incision was made overlying the knee. Full thickness skin flaps were raised once the extensor mechanism was encountered. These were raised medially and laterally. Any bleeding was controlled with electrocautery. Once the extensor mechanism was fully exposed, a medial parapatellar arthrotomy was performed in a flexed position. All bleeding from the arthrotomy and the geniculate arteries was coagulated. A medial subperiosteal peel was performed with electrocautery to the midcoronal plane. The fat pad was removed while keeping the patellar tendon protected. The anterior distal femur synovium was removed for later visualization. The ACL and PCL were resected and the anterior horn of the lateral meniscus was transected. The knee was then flexed with the patella everted. A single starting pin was then placed 1cm anterior to the PCL insertion and the notch in the direction of the femoral head. The OrthoAlign device was applied over the pin. It was oriented to be in line with the epicondylar axis and the trochlear groove. It was then pinned into place. The navigation computer was then turned on and calibrated. The distal femur cut was set at 0.5 degrees varus and 3.5 degrees flexion. The distal femur cutting guide then was positioned for a 9mm cut. The distal femur was cut with an oscillating saw while protecting the soft tissues. The tibia was then addressed. The OrthoAlign device was placed over the tibial tubercle and medial tibia and secured into position. Once again, OrthoAlign was calibrated and then set for a 1.5 degree varus cut and 6 degrees of posterior slope. With this locked into position, the cut thickness stylus was used to assess cut thickness. The medial side, most involved side, was set for a 5mm cut. This was then held in position and pinned into place with 2 additional pins and a cross pin for stability. The medial and lateral collateral ligaments were protected and the cut was performed. With this completed, it was assessed and noted to be of appropriate dimensions. The guide and OrthoAlign was removed. A spacer block was inserted and the knee was brought into extension to ensure enough space was present. . The Orthoalign gap balancing device was then placed in extension. This was used to ensure that the ligaments were properly balanced with up to 2 to 3 mm laxity laterally compared medially. The extension gap was measured as 19mm. The knee was then brought into 90 degrees of flexion and the ligament patient registration specialist was once again placed. Under the same amount of force the flexion gap was measured. The Attune specific jig was placed and the flexion gap was made to match the extension gap. The femur was then sized as a size 7. The 4-in-1 cutting guide was the placed. An iman wing was used to confirm appropriate position of the anterior cut to avoid notching. This cutting guide was ensured to be flush on the cut surface and then pinned into place with headed pins. While protecting the soft tissues, quad tendon, and collateral ligaments, the anterior and posterior cuts were performed with a saw. The central two pins were removed and the posterior and anterior chamfers were cut next. The notch-cutting guide was placed. This was pinned to lateralize the femoral component as much as possible while keeping it flush on the cut surface. This was then pinned into position. A saw was used to make the notch cut. A rasp smoothed the cut surfaces. The medial and lateral menisci were removed. A trial femoral component was then inserted, impacted down to the cut surfaces, and the lug holes were drilled. A provisional trial tibial component was placed and the knee was brought through range of motion. The polyethylene was trialed until there was good flexion and extension with excellent stability to the medial and lateral collaterals. The patella was tracking without thumbs. A size 7mm polyethylene component provided the best range of motion and stability with less than 2mm gapping with medial and lateral stress and full extension without significant hyperextension. The tibial cut surface was fully exposed. The tibia was then sized as a 6. The tibia had been previously marked during trialing to correspond to the center of the tibial component to help with rotation. The trial was aligned to this keshav, approximately rotated to the medial 1/3rd of the tibial tubercle. The trial was pinned into place. The tibia was prepared with a reamer and a keel punch and lug holes. The knee was then brought into extension and the patella was measured as 28mm. Using the patellar clamp and cut guide, this was resected to a flat surface with at least 13mm of thickness remaining. The size 38 patella fit the best. This was oriented and then clamped into position. The lugs were drilled. The trial components were removed. The final components were opened on the back table. The periosteal and capsular tissues, especially posteriorly, around the knee were then systematically injected with a periarticular cocktail consisting of 246mg of Ropivacaine, 0.5mg of Epinephrine, 0.08mg of Clonidine, and 30mg of Ketorolac, diluted to 100cc. On the back table, with the implants opened, the cement was mixed. One batch of high viscosity cement was prepared with vacuum assistance. After the cement was ready a small amount was placed on the cut surface of the patella and the patellar button was clamped into position and held. While the cement was hardening, the cementless knee components were placed. Starting with the tibial component, the tibia was subluxed anteriorly and the lug holes of the component were lined up. The tibia was then impacted with an impactor and mallet until the tibial component was in contact with the tibia. Then, the femoral component was inserted. The lug holes were aligned and the component was impacted into position. The final polyethylene component was inserted. The knee was irrigated with Surgiphor Betadine solution. This was allowed to sit in the knee for 3 minutes and then it was thoroughly irrigated out with saline. After the cement had finally cured, approximately 15min, the clamp was removed from the patella and the knee was taken through range of motion. The patella was tracking with a no-thumbs technique. The capsule was then reapproximated with a No. 1 Vicryl at multiple locations. The capsule was finally closed with a No. 2 Stratafix, barbed suture. Deep tissues were then reapproximated with 0 Vicryl and 2-0 Vicryl. The skin was closed with a running 3-0 Monocryl in a subcuticular fashion. This was reinforced with skin glue. A Mepilex silver dressing was applied along with a [id number] FAUSTO wrap. A CryoCuff was applied. Junaid was transferred to the hospital bed without difficulty an suffering no apparent complication. Junaid has a good prognosis. Physical therapy will start today and without restrictions, weight-bearing as tolerated. Aspirin 81mg BID will be used for DVT prophylaxis.
--- NOTE | 2022-12-22 12:58 | W.ANESPOSTOP ---
Postoperative Evaluation Date, Time and Location Date Performed: 12/22/22 Time Performed: 12:59 Patient Location: Day Surgery Unit Vital Signs Most Recent Imported Vital Signs: Most Recent Vital Signs Temp Pulse Resp BP Pulse Ox 36.6 C 48 L 18 114/78 96 12/22/22 10:55 12/22/22 10:55 12/22/22 10:55 12/22/22 10:55 12/22/22 10:55 Pain Score Most Recent Pain Score: Most Recent Pain Score Pain Level 0 12/22/22 10:55 Assessment Mental Status: Awake (Alert & Oriented to Patient Baseline) Airway and Respiratory Function: Patent airway with normal (patient baseline) respiratory exam Cardiovascular Function: Hemodynamically Stable Hydration Status: Adequately Hydrated Nausea & Vomiting: No Nausea or Vomiting Pain: Pt. Denies Any Pain Peripheral Nerve Block: Regional nerve block not resolved at time of post operative discharge
== END 2022-12-22 13:31 | disposition home or self-care (01) ==
PROVIDERS: PCP Family Medicine; Visit Provider Student in an Organized Health Care Education/Training Program
PROC: (CPT 27447; principal; 2022-12-22 07:30)
DX: M17.12 Unilateral primary osteoarthritis, left knee (principal); J45.909 Unspecified asthma, uncomplicated; E78.5 Hyperlipidemia, unspecified
CPT/HCPCS: 20985; 27447; C1776; 76942; 97162; 97530; J0171; J0690; J1100; J2001; J2250; J2371; J2405; J2704

== ENCOUNTER → 2022-12-23 14:48 | Outpatient (BNVA) | payer MEDICARE, SELFPAY | PROVIDERS: PCP Family Medicine; Referring Provider Family Medicine; Visit Provider Student in an Organized Health Care Education/Training Program | DX: Z47.1 Aftercare following joint replacement surgery (principal); Z96.652 Presence of left artificial knee joint ==

== ENCOUNTER 2023-01-04 14:05 | Outpatient (CLI) | payer MEDICARE, SELFPAY ==
--- NOTE | 2023-01-04 11:09 | DI.RAD_ITS ---
Exam(s) XR KNEE LT 1V XR STANDING ALIGNMENT EXAM: XR STANDING ALIGNMENT CLINICAL HISTORY: post op. TECHNIQUE: 2D digital imaging was performed. Standing AP views were performed from the pelvis throu gh the ankles. Lateral view of the left knee COMPARISON: CR XR KNEE LT 1V from 11/23/2022 CR XR KNEE LT 1V from 01/04/2023 FINDINGS: BONES: No acute fracture is present. No bony destructive lesion is seen. Leg length discrepancy: JOINTS: Knees: Left knee prosthesis is unremarkable. Right knee joint spaces are maintained. Mild p eriarticular spurring. Chondrocalcinosis. The ankle joints are unremarkable. The hip joints are unremarkable. SOFT TISSUE: There topic calcifications noted around the right hip and medial mid thigh.. IMPRESSION: Mild degenerative changes of the right knee. Left total knee prosthesis is unremarkable.. No significant leg length discrepancy. DATA REPOSITORY: RADIATION DOSE DELIVERED:
== END 2023-01-04 14:06 | disposition home or self-care (01) ==
LOC: DIORS 14:06
PROVIDERS: PCP Family Medicine; Referring Provider Family Medicine; Visit Provider Student in an Organized Health Care Education/Training Program
DX: Z96.652 Presence of left artificial knee joint (principal); Z47.1 Aftercare following joint replacement surgery
CPT/HCPCS: 73560; 77073

== ENCOUNTER → 2023-02-01 10:51 | Outpatient (BNVA) | payer MEDICARE, SELFPAY | PROVIDERS: PCP Family Medicine; Visit Provider Student in an Organized Health Care Education/Training Program | DX: Z47.1 Aftercare following joint replacement surgery (principal); Z96.652 Presence of left artificial knee joint ==

== ENCOUNTER → 2023-03-15 10:07 | Outpatient (BNVA) | payer MEDICARE, SELFPAY | PROVIDERS: PCP Family Medicine; Referring Provider Family Medicine; Visit Provider Student in an Organized Health Care Education/Training Program | DX: Z47.1 Aftercare following joint replacement surgery (principal); M17.11 Unilateral primary osteoarthritis, right knee; T84.82XA Fibrosis due to internal orthopedic prosthetic devices, implants and grafts, initial encounter; Z96.652 Presence of left artificial knee joint ==

== ENCOUNTER 2023-03-19 11:23 | Day surgery (SDC) | payer MEDICARE, SELFPAY ==
[2023-03-19] VITALS (8 sets, daily range): BP systolic 121–185; BP diastolic 69–98; PULSE 54–78; RESP 14–21; TEMP 36.3–36.8; O2SAT 94–98; BMI 25.7
--- NOTE | 2023-03-19 08:23 | ANES.PREOP_ITS ---
General Info Date of Service Date Performed: 03/19/23 Height: 5 ft 6 in Weight: 72.3 kg Body Mass Index (BMI): 25.7 Surgical Procedure: Operation Date: 03/19/23 12:40 Proposed Procedure Side Surgeon p Knee Manipulation of Knee Left Danny Graham MD s Knee Injection Right Danny Graham MD Meds Allergies and Home Medications Allergies Allergy/AdvReac Type Severity Reaction Status Date / Time Sulfa (Sulfonamide Allergy Skin Rash Verified 03/19/23 11:37 Antibiotics) atorvastatin calcium AdvReac Intermediate myalgias Verified 03/19/23 11:37 [From Lipitor] and joint pain CAT/FELINE Allergy Intermediate ASTHMA Uncoded 03/19/23 11:37 EXACERBATION DUST Allergy Intermediate ASTHMA Uncoded 03/19/23 11:37 EXACERBATION MOLDS AND SMUTS Allergy Intermediate ASTHMA Uncoded 03/19/23 11:37 EXACERBATION Home Medication Medication Instructions Recorded meclizine 25 mg tablet 25 mg PO DAILY PRN dizziness #30 03/08/22 tabs fluticasone propionate 110 2 puff inhalation BID asthma #3 07/02/22 mcg/actuation HFA aerosol inhaler vials (Flovent HFA) albuterol sulfate 90 mcg/actuation 2 puff inhalation Q4H PRN PRN 11/24/22 aerosol inhaler (Proventil HFA) bronchospasm #18 grams doxazosin 4 mg tablet 4 mg PO HS #90 tabs 11/24/22 omeprazole 40 mg capsule,delayed 40 mg PO DAILY #90 caps 11/24/22 release aspirin 81 mg tablet,delayed 81 mg PO DAILY 03/03/23 release (Adult Low Dose Aspirin) acetaminophen 500 mg tablet 1,000 mg (2 x 500 mg) PO Q8H PRN 03/19/23 pain #90 tabs ibuprofen 600 mg tablet 600 mg PO TID PRN pain #60 tabs 03/19/23 Current Visit Medications: Current Medications Generic Name Dose Route Start Last Admin Trade Name Freq PRN Reason Stop Dose Admin Acetaminophen 1,000 mg 03/19/23 06:00 Acetaminophen 500 Mg Tab PO PREOP EUSEBIO Celecoxib 400 mg 03/19/23 06:00 Celecoxib 200 Mg Cap PO PREOP EUSEBIO Ringer's Solution 1,000 mls @ 80 mls/hr 03/19/23 06:00 IV 03/19/23 23:59 INFUSION EUSEBIO IV Miscellaneous Supplies 1 each 03/19/23 06:00 Iv Access IV 03/19/23 23:59 DIRECTED EUSEBIO Sodium Chloride 0 ml 03/19/23 06:00 Normal Saline Flush 10 Ml Syr IV 03/19/23 23:59 PRN PRN Sodium Chloride 0 ml 03/19/23 06:00 Normal Saline 10 Ml Vial IJ 03/19/23 23:59 DIRECTED PRN Sterile Water 0 ml 03/19/23 06:00 Water,Injection,Sterile 10 Ml Vial IJ 03/19/23 23:59 DIRECTED PRN PFSH Active Problems Active Problems: Problem Status Onset Code Arthrofibrosis of total knee arthroplasty T84.82XA Degenerative joint disease of right knee M17.11 History of total left knee replacement 12/22/22 Z96.652 Chest pain R07.9 Drug exanthem L27.0 Vertigo R42 Rupture of left proximal biceps tendon S46.212A Left knee injury S89.92XA Benign prostate hyperplasia N40.0 Hyperlipidemia E78.5 Heart murmur R01.1 Asymmetrical sensorineural hearing loss H90.3 Allergic rhinitis J30.9 Asthma J45.909 Medical History Medical History Balance disorder Anxiety Depression Hyperlipidemia Umbilical hernia Sciatica right; back surgery 1993 Rosacea Restless leg syndrome Osteoarthritis RIGHT HIP REPLACEMENT Obstructive sleep apnea syndrome CPAP Nasal polyp Kidney stone Hiatal hernia Hearing loss LEFT SIDE WITH AID Generalized osteoarthrosis right hip replacement Esophageal reflux Benign prostatic hyperplasia Asthma Surgical History Surgical History Status post laser lithotripsy of ureteral calculus H/O umbilical hernia repair Status post hip replacement RIGHT Status post vasectomy Total replacement of hip Left MARYLIN Rotator Cuff Repair (~2002) Left Repair of inguinal hernia Right Bilateral hernia repair as 6 yo Colonoscopy - MAC (06/03/16) 1999-NEG BACK SURGERY (~1993) Right sciatica Tobacco Smoking/Tobacco Use Status: Never Passive smoking exposure: No Alcohol Alcohol Intake: current Alcohol intake frequency: 0-2 drinks per day Alcohol type: wine Substance Use Substance use: Never Substance use type: does not use Vital Signs and Lab Results Vital Signs Most Recent Vital Signs in EMR: Temp Pulse Resp BP Pulse Ox 36.3 C L 78 16 163/87 H 98 03/19/23 11:30 03/19/23 11:30 03/19/23 11:30 03/19/23 11:30 03/19/23 11:30 Lab Results Blood Type / Crossmatch: No Data to Display Complete Blood Count: No Data to Display Complete Metabolic Panel: No Data to Display Liver Function Panel: No Data to Display Coagulation Panel: No Data to Display Cardiac Panel: No Data to Display Arterial Blood Gas: No Data to Display Venous Blood Gas: No Data to Display Pancreas Panel: No Data to Display Thyroid Panel: No Data to Display Infectious Disease: No Data to Display Blood Cultures: No Data to Display Toxicology Panel: No Data to Display Imaging and Studies Imaging and Studies Study information below may be from another EMR and interpreted by another provider. Please see original notes in EMR for more complete details. EKG Summary: EKG PATIENT NAME: Surya Campos UNIT #: [id number] ORDERING PROVIDER: Uvaldo Anderson M.D. PRIMARY CARE PROVIDER: UVALDO ANDERSON MD DATE/TIME OF SERVICE: 10/07/22 0853 : 1945 PERFORMING LOCATION: [facility] APPROVED REPORT Exam: Resting ECG Reason for Exam: ED FU chest pain Patient Location: O HR:57 bpm ECG Measurements Heart Rate 57 AXIS WV 224 P 60 QRSd 152 QRS 57 QT 448 T24 QTc 437 Conclusion Sinus rhythm...normal P axis, V-rate 50- 99 Supraventricular bigeminy...bigeminy string>4 w/ SV complexes Prolonged WV interval...WV >220, V-rate 50- 90 Right bundle branch block...QRSd>120, terminal axis(90,270) <Electronically signed by KEKE DANGELO MD in OV> E-Sign Date: 10/08/22 E-Sign Time: 812 Stress Test Summary: Patient Name: Surya Campos Unit #: [id number] Loc: Ordering Provider: Uvaldo Anderson M.D. Status: REG CLI Primary Care Provider: Uvaldo Anderson M.D. Date of Exam: 10/13/22 Sex: M Admission Date: 10/13/22 : 1945 Age: 77 APPROVED REPORT Exam: Pharmacologic Patient Location: Out-Patient Room/Bed: Stress Nurse: Nataly Ugalde RN Ordering Provider:UVALDO ANDERSON, Contact Number: [phone] BMI: 26.12 Baseline Rhythm: Sinus Rhythm, RBBB Comment: Frequent PAC's Indications: Chest pain Medical History Medical History: Chest pain, vertigo, HLD, heart murmur, hearing loss, asthma Cardiac Medications: Omeprazole, HLD, asthma Allergies: Sulfa, atorvastatin, cat/felinw, dust and mold Cardiac Risk Factors: Family hx, HLD, asthma Previous Cardiac Procedures: Cardiac cath approx 10 years ago Pretest Chest Pain Characteristics: 2/10 chest pressure Exercise History: Indeterminate Physical Disabilities: None Lung Sounds: Clear to auscultation Heart Sounds: Irregular Stress Test Details Test: Pharmacologic stress was paired with low level exercise. Reason for pharmacologic stress test: RBBB, nurse concern. Nuclear Acquisition: Rest Tc-99m/Stress Tc-99m 1 day Rest Isotope: Tc-99m Sestamibi. Dose: 10.0 Date: 10/13/2022 Injection Time: 0920 Stress Isotope: Tc-99m Sestamibi. Dose: 30.0 Date: 10/13/2022 Injection Time: 1102 HR Resting HR Supine: 53 bpmMax Heart Rate (APMHR): 144.568353 bpm Resting HR Standin bpmTarget HR (85% APMHR): 122.850628 bpm Max HR Achieved: 99 bpm % of APMHR: 68.75 Recovery HR: 70 bpm BP Resting BP Supine: 146/64 mmHg Resting BP Standin/82 mmHg Max BP: 142/82 mmHg Recovery BP: 124/74 mmHg ECG Resting ECG: Sinus Rhythm, RBBB Ectopy: Frequent PAC's Stress ECG: Sinus Rhythm, RBBB ST Change: Nondiagnostic low heart rate Arrhythmia: Frequent PAC's Recovery ECG: Sinus Rhythm, RBBB Recovery ST Change: Nondiagnostic low heart rate Recovery Arrhythmia: Frequent PAC's Clinical Stress Symptoms: Dyspnea, 3/10 chest pressure Angina Score: Non-Limiting Rate Pressure Product: 02223 Stress ECG Conclusion 1. Resting electrocardiogram showed right bundle branch block 2. Patient underwent testing using low-level exercise and pharmacologic stress with regadenoson 3. Peak heart rate achieved was 69% of predicted for age 4. Electrocardiographic portion of the test was nondiagnostic 5. Atrial premature contractions were noted 6. See MPI report Stress Test Summary [id number] [id number]/76802/10 chest pain [id number]/46346/10 chest pain 1 min post Lexiscan [id number]/88648/10 chest pressure, mild-mod dyspnea 3 min post Lexiscan [id number]/7296Chest pain at basline, dyspnea resolved. 6 min post Lexiscan [id number]/7498Baseline chest pressure MPI Conclusion Myocardial perfusion is normal. There is no ischemia or evidence of prior infarction EF 54% with normal wall motion Radiologist Interpretation Radiologist agrees with Topographical Engineer's Interpretation. Radiologist Interpretation by: Christen Ghosh MD Interpretation Date/Time: 10/14/2022 16:05:33 Ordered By: Uvaldo Anderson M.D. CC: ANTOLIN BLANCO,KEKE DELUCA Dictated By: Keke Dangelo M.D. 10/13/22 1127 <Electronically signed by Keke Dangelo M.D. in OV> 10/15/22 0802 Transcribed By: Keke Dangelo MD This is privileged, confidential information intended only for the provider named. Any use or distribution by any person other than this provider is strictly prohibited. If you receive this report in error, please notify us immediately at [phone] and return the original report to us at the address above. Thank-you. Other Study Summary:: CTA chest, CXR, chest/pelvis CT, neck CT reviewed and results in chart Anesthesia Assessment and Plan Anesthesia History Personal History: No History of Anesthesia Complications Family History: No Family History of Anesthesia Complications Exercise Tolerance Exercise Tolerance: Metabolic Equivalents>4 Pertinent Negatives Pertinent Negatives: No Major Cardiovascular Symptoms or Complaints, No Major Pulmonary Symptoms or Complaints, No History of CVA/TIA and Other (pt reports medication controlled reflux and denies any s/s of reflux this morning) Cardiac & Pulmonary Exam Cardiac Exam: Normal S1/S2 Heart Sounds Pulmonary Exam: Clear Bilateral Breath Sounds Implantable Cardiac Device Does patient have a Pacemaker or an ICD?: No Airway Exam Known Difficult Airway: No Mallampati Class: 3 Mouth Opening: Normal (> 3cm) Thyromental Distance: Greater than 3 cm Neck Range of Motion: Full ROM Neck Circumference: Normal Teeth Condition: Normal Dentition ASA Classification ASA Score: ASA 2 Emergency Case?: No NPO Status NPO Status: NPO Clears >2 hours, Solids >8 hours Anesthesia Plan Resuscitation Status: Full Code Anesthesia Technique: General Anesthesia Airway Planned: Natural Airway Monitors Used: Standard Monitors
[2023-03-19] MEDS: Acetaminophen 500 MG TAB 1000 MG PO (11:56)
[2023-03-19] MEDS: Celecoxib 200 MG CAP 400 MG PO (11:56)
--- NOTE | 2023-03-19 12:00 | PDOC.DSDIS_ITS ---
Date of service: 03/19/23 Time of Service: 12:03 Discharge Plan Disposition Patient Disposition: Home Condition: Good Discharge Details Reason For Visit: left knee arthrofibrosis; right knee DJD Attending Provider: Danny Graham Primary Care Provider: Uvaldo Anderson Home Meds and New Rx's Prescriptions: New acetaminophen 500 mg tablet 1,000 mg PO Q8H PRN Qty: 90 0RF Rx Instructions: Take two tablets up to every 8 hours as needed for pain ibuprofen 600 mg tablet 600 mg PO TID PRN (Reason: pain) Qty: 60 0RF tramadol 50 mg tablet 50 mg PO Q8H PRNQty: 10 0RF Continued albuterol sulfate [Proventil HFA] 90 mcg/actuation HFA aerosol inhaler 2 puff Inhalation Q4H PRN PRN (Reason: bronchospasm) Qty: 18 6RF doxazosin 4 mg tablet 4 mg PO HS Qty: 90 3RF omeprazole 40 mg capsule,delayed release(DR/EC) 40 mg PO DAILY Qty: 90 3RF fluticasone propionate [Flovent HFA] 110 mcg/actuation HFA aerosol inhaler 2 puff Inhalation BID Qty: 3 3RF aspirin [Adult Low Dose Aspirin] 81 mg tablet,delayed release (DR/EC) 81 mg PO DAILY meclizine 25 mg tablet 25 mg PO DAILY PRN (Reason: dizziness) Qty: 30 2RF Discontinued acetaminophen 500 mg tablet 1,000 mg PO Q8H PRN Qty: 90 0RF Rx Instructions: Take two tablets up to every 8 hours as needed for pain Discharge Instructions Additional Instructions: Knee Manipulation and Injection Discharge Instructions Activity: You should begin moving as soon as possible. You may work on flexion but also equally maintain extension. You may bear weight as tolerated, using crutches only for support/comfort. You should apply ice to help with swelling and elevate when possible (especially in the first few days). Dressings: The knee dressing may come down after 48 hours. You may shower and get the wound wet at that time. You should keep the wounds covered with a ban daid until follow-up. Medications: - Rarely does this require any stronger pain medications. However, is important to control pain to maximize her range of motion afterwards as it is normal to have some swelling and stiffness. Tramadol was called in in case you need something stronger than Tylenol and ibuprofen. - Recommend to take up to 1000mg of Acetaminophen (Tylenol) and 600mg of Ibuprofen (Advil) every 8 hours as needed. These larger strength tablets were called in but you also may use [id number]. Follow-up: Physical therapy to begin tomorrow, March 20. Office visit on April 01, 2023 @ 10:45 am. Stand Alone Forms: Anesthesia Discharge Inst., Reyna Valentin (U) Referrals: Danny Graham MD [ [facility] STAFF PHYSICIAN] - Equipment/Supplies: Partial Weight Bearing Crutches Activity:: Activity as Tolerated Remove Dressings/Wound Care:: 48 hours Shower/Bathe:: 48 hours Diet:: As Tolerated Discharge Orders Discharge Orders: Discharge Order (Routine); Ordered 03/19/23 Ordered By: Daniela Ponce
[2023-03-19] MEDS: Lactated Ringers 1,000 ML 80 ML IV (12:17)
[2023-03-19] MEDS: Bupivacaine 0.5% Pres-Free 30 ML VIAL (12:48)
[2023-03-19] MEDS: methylPREDNISolone ACETATE 80 MG/ML VIAL (12:50)
--- NOTE | 2023-03-19 13:44 | W.ANESPOSTOP ---
Postoperative Evaluation Date, Time and Location Date Performed: 03/19/23 Time Performed: 13:40 Patient Location: PACU Vital Signs Most Recent Imported Vital Signs: Most Recent Vital Signs Temp Pulse Resp BP Pulse Ox 36.5 C 54 L 16 154/96 H 96 03/19/23 13:38 03/19/23 13:38 03/19/23 13:38 03/19/23 13:38 03/19/23 13:38 Pain Score Most Recent Pain Score: Most Recent Pain Score Pain Level 0 03/19/23 13:38 Assessment Mental Status: Awake (Alert & Oriented to Patient Baseline) Airway and Respiratory Function: Patent airway with normal (patient baseline) respiratory exam Cardiovascular Function: Hemodynamically Stable Hydration Status: Adequately Hydrated Nausea & Vomiting: No Nausea or Vomiting Pain: Pt. Denies Any Pain Peripheral Nerve Block: Patient did not receive a nerve block
--- NOTE | 2023-03-19 14:14 | ROE_ITS ---
Date of service: 03/19/23 Time of Service: 12:50 Operative Note Operative Note DATE OF PROCEDURE: 03/19/23 PRE-OP DIAGNOSIS: Left Knee Arthrofibrosis s/p Replacement, Right Knee Arthritis POST-OP DIAGNOSIS: same PROCEDURE: Left Knee Manipulation Under Anesthesia Right Knee Injection SURGEON: Danny Graham ANESTHESIA TYPE: General:No Airway Refer to Anesthesia Record ESTIMATED BLOOD LOSS: 0 PATHOLOGY: none sent TOURNIQUET TIME: 0 COMPLICATIONS: None Patient was transported to: PACU Patient's condition: stable Indications: Junaid is a 78 year old male who is s/p knee replacement. He has worked diligently with physical therapy continues to deal some stiffness. Given his restricted motion I did offer a manipulation under anesthesia. I discussed the risks of the procedure to include bleeding, pain, recurrent stiffness, fracture. Despite these risks, he elects to proceed. Additionally, he has known arthritis about the right knee. To help treat this pain I offered an injection to the right knee. Findings: Preoperative flexion = 110 Postoperative flexion = 135 Preoperative extension = 15 Postoperative extension = 5 Procedure Description: The patient was greeted in the preoperative holding area. Identity was confirmed and the correct side was identified and marked. The consent was reviewed the patient and signed. History and physical was updated. Junaid was taken back to the operating room. The left side was identified as the correct side for manipulation. A timeout was performed for safe surgery. A general anesthetic was administered. The knee was then prepped with ChloraPrep and an intra-articular injection of 10 cc of 0.5% bupivacaine was administered. Once a muscle relaxant was fully on board manipulation was performed. Pre- manipulation range of motion was noted. A gentle manipulation was performed first into flexion using a very small lever arm and adding gentle and progressive pressure to the tibia. There is audible and palpable crepitus with improvement in range of motion. This was cycled and repeated multiple times. The leg was then brought into extension and gentle anterior posterior pressure was applied with a supported hand behind the proximal tibia and knee. This was brought back into flexion was once again manipulated with gentle and progressive pressure. Final range of motion numbers were recorded, 5-135. A Band-Aid was applied to the injection site. Attention was then turned to the right knee. The soft spot of the superolateral aspect of the knee was identified and marked. This was then prepped with ChloraPrep. Using a 21-gauge needle I then injected the knee with 6 cc of 0.5% bupivacaine along with 80 mg of Depo-Medrol. A Band-Aid was applied. He was awakened from anesthesia and taken to the PACU in stable condition. He tolerated the procedure well without any complication.
== END 2023-03-19 14:34 | disposition home or self-care (01) ==
LOC: PRC 11:23 → SUR 11:24
PROVIDERS: PCP Family Medicine; Visit Provider Student in an Organized Health Care Education/Training Program
PROC: (CPT 27570; principal; 2023-03-19 12:30)
PROC: (CPT 27570; 2023-03-19 12:30)
DX: T84.82XA Fibrosis due to internal orthopedic prosthetic devices, implants and grafts, initial encounter (principal); Z96.652 Presence of left artificial knee joint
CPT/HCPCS: 27570; J0330; J0665; J1040; J1100; J2001; J2405; J2704

== ENCOUNTER → 2023-04-01 10:42 | Outpatient (BNVA) | payer MEDICARE, SELFPAY | PROVIDERS: PCP Family Medicine; Referring Provider Family Medicine | DX: Z47.1 Aftercare following joint replacement surgery (principal); T84.82XA Fibrosis due to internal orthopedic prosthetic devices, implants and grafts, initial encounter; Z96.652 Presence of left artificial knee joint; M17.11 Unilateral primary osteoarthritis, right knee ==

== ENCOUNTER → 2023-05-17 09:12 | Outpatient (BNVA) | payer MEDICARE, SELFPAY | PROVIDERS: PCP Family Medicine; Referring Provider Family Medicine; Visit Provider Student in an Organized Health Care Education/Training Program | DX: Z47.1 Aftercare following joint replacement surgery (principal); Z96.652 Presence of left artificial knee joint; T84.82XA Fibrosis due to internal orthopedic prosthetic devices, implants and grafts, initial encounter ==

== ENCOUNTER → 2023-07-15 07:58 | Outpatient (BNVA) | payer MEDICARE, SELFPAY | PROVIDERS: PCP Family Medicine; Referring Provider Family Medicine; Visit Provider Student in an Organized Health Care Education/Training Program | DX: M17.11 Unilateral primary osteoarthritis, right knee (principal) | CPT/HCPCS: 20610; J1010 ==

== ENCOUNTER → 2023-12-10 08:25 | Outpatient (BNVA) | payer MEDICARE, SELFPAY | PROVIDERS: PCP Family Medicine; Referring Provider Family Medicine | DX: M17.11 Unilateral primary osteoarthritis, right knee (principal) | CPT/HCPCS: 20610; J1010 ==

== ENCOUNTER 2023-12-27 15:31 | Outpatient (CLI) | payer MEDICARE, SELFPAY ==
--- NOTE | 2023-12-27 09:15 | DI.RAD_ITS ---
Exam(s) XR KNEE LT 2V AP,LAT EXAM: XR KNEE LT 2V AP,LAT INDICATION: ANNUAL F/U L TKA. COMPARISON: CR XR KNEE LT 1V from 01/04/2023 TECHNIQUE: 2D digital imaging was performed. Two views. FINDINGS: Stable alignment of total knee prosthesis. No abnormal bony lucencies. DATA REPOSITORY: RADIATION DOSE DELIVERED:
== END 2023-12-27 15:32 | disposition home or self-care (01) ==
LOC: DIORS 15:31
PROVIDERS: PCP Family Medicine; Visit Provider Student in an Organized Health Care Education/Training Program
DX: Z96.652 Presence of left artificial knee joint (principal); Z47.1 Aftercare following joint replacement surgery; T84.82XA Fibrosis due to internal orthopedic prosthetic devices, implants and grafts, initial encounter
CPT/HCPCS: 99213; 73560

== ENCOUNTER 2024-07-13 08:52 | Outpatient (CLI) | payer MEDICARE, SELFPAY ==
[2024-07-13 12:06] LABS: Abs Immature Grans 0.01 10^3/uL (0.0-0.06); Absolute Basophil Count 0.07 10^3/uL (0.0-0.2); Absolute Eosinophil Count 0.39 10^3/uL (0.0-0.7); Absolute Lymphocyte Count 1.04 10^3/uL (1.2-3.4); Absolute Monocyte Count 0.79 10^3/uL (0.1-0.8); Absolute Neutrophil Count 3.11 10^3/uL (1.2-6.7); Basophils % 1.3 %; Eosinophils % 7.2 %; HCT 48.7 % (40.0-50.0); HGB 16.5 g/dL (13.5-17.5); Immature Grans % 0.2 %; Lymphocytes % 19.2 %; MCH 31.7 pg (27.0-33.0); MCHC 33.9 % (32.0-36.0); MCV 94 fL (80-95); MPV 9.8 fL (8.0-11.0); Monocytes % 14.6 %; Neutrophils % 57.5 %; Platelet Count 235 10^3/uL (130-400); RDW 13.1 % (11.8-14.1); RDW-SD 44.7 fL; WBC 5.41 10^3/uL (4.4-10.8)
[2024-07-13 12:31] LABS: ALT 21 U/L (16-63); AST 17 U/L (15-37); Alkaline Phosphatase 92 U/L (46-116); Anion Gap 7.8 mmol/L (3-11); BUN 15 mg/dL (7-18); Bilirubin, Total 1.1 mg/dL (0.2-1.0); CO2 30.2 mmol/L (21.0-32.0); Calcium 9.6 mg/dL (8.5-10.1); Chloride 100 mmol/L (98-107); Estimated GFR 77.04 (mL/min/1.73m2); Glucose 79 mg/dL (74-106); Potassium 4.3 mmol/L (3.5-5.1); Sodium 138 mmol/L (136-145); Total Protein 7.2 g/dL (6.4-8.2)
[2024-07-13 19:13] LABS: Hepatitis C Ab w Rflx HCV PCR Negative (Negative)
[2024-07-13 19:15] LABS: HIV-1/2 Ag & Ab Screen Negative (Negative)
[2024-07-13 19:17] LABS: HBs Antibody, Quant <3.1 mIU/mL (See Note); Hep B Surface Ab Negative (See Note); Hepatitis B Core Antibody Negative (Negative); Hepatitis B Surface Antigen Negative (Negative)
== END 2024-07-13 08:53 | disposition home or self-care (01) ==
LOC: LOS 08:52
PROVIDERS: PCP Family Medicine; Referring Provider Family Medicine; Visit Provider Family Medicine
DX: Z11.59 Encounter for screening for other viral diseases (principal); D64.9 Anemia, unspecified; R10.9 Unspecified abdominal pain
CPT/HCPCS: 36415; 80053; 86704; 86706; 86803; 87340; 87389; 85025

== ENCOUNTER 2024-07-14 00:26 | Outpatient (CLI) | payer MEDICARE, SELFPAY ==
--- NOTE | 2024-07-14 10:47 | DI.RAD_ITS ---
Exam(s) XR ABDOMEN FLAT PLATE EXAM: XR ABDOMEN FLAT PLATE CLINICAL HISTORY: constipation,k59.00. TECHNIQUE: 2D digital imaging was performed. COMPARISON: CT CT ABDOMEN PELVIS W from 12/08/2019 FINDINGS: AP supine view the abdomen-pelvis Bilateral hip prostheses. Multiple calculi are again noted in left kidney, as seen on CT scan 2019. The largest calculus in th e left kidney measures approximately 9 mm. Smaller calculus noted in the right kidney as also eviden t on prior CT scan. The bowel gas pattern is nonspecific. There there is a moderate increased amount of fecal material t hroughout the colon but there is no rectal distension. Prior CT scan listed above revealed sigmoid d iverticulosis IMPRESSION: Moderate amount of fecal material in the colon but without evidence of rectal distension. Prior CT s can revealed diverticulosis of the sigmoid in 2019. Bilateral renal calculi again noted, larger and more numerous in the left kidney. DATA REPOSITORY: RADIATION DOSE DELIVERED:
== END 2024-07-14 00:46 ==
LOC: DI 00:26
PROVIDERS: PCP Family Medicine; Visit Provider Family Medicine
DX: K59.00 Constipation, unspecified (principal)
CPT/HCPCS: J1010; 74018

== ENCOUNTER 2024-07-14 10:31 | Outpatient (CLI) | payer MEDICARE, SELFPAY ==
--- NOTE | 2024-07-14 10:00 | DI.RAD_ITS ---
Exam(s) XR KNEE RT 4V AP,LAT,THERESE,PAT EXAM: XR KNEE RT 4V AP,LAT,THERESE,PAT CLINICAL HISTORY: R knee pain. TECHNIQUE: 2D digital imaging was performed. COMPARISON: CR XR KNEE LT 2V AP,LAT from 12/27/2023 FINDINGS: 3 views No evidence of fracture. Small amount of increased joint fluid noted. There are moderate degenerative changes in the medial compartment. Also in the medial aspect of the patellofemoral compartment. Lateral compartment exhibits normal height but does exhibit some chondro calcinosis. No patellar displacement. Bone density normal. No significant osseous lesions. IMPRESSION: Moderate degenerative changes as described above in the medial compartment and in the medial aspect o f the patellofemoral compartment DATA REPOSITORY: RADIATION DOSE DELIVERED:
== END 2024-07-14 10:32 | disposition home or self-care (01) ==
LOC: DIORS 10:31
PROVIDERS: PCP Family Medicine; Visit Provider Physician Assistant
DX: M17.11 Unilateral primary osteoarthritis, right knee (principal)
CPT/HCPCS: 20610; J1010; 73564

== ENCOUNTER 2024-08-15 03:17 | Outpatient (CLI) | payer MEDICARE, SELFPAY ==
--- NOTE | 2024-08-15 06:00 | DI.US_ITS ---
Exam(s) US RENAL EXAM: US RENAL CLINICAL HISTORY: urinary frequency,milagros flank pain;hx of nephrolithiasis,n20.0. TECHNIQUE: Chauhan scale imaging and color doppler were used. COMPARISON: CT CT ABDOMEN PELVIS W from 12/08/2019 CR XR ABDOMEN FLAT PLATE from 07/14/2024 FINDINGS: Right kidney: 11cm Echogenicity: Normal Hydronephrosis: No Cyst or mass: No suspicious mass. 5 centimeter cyst mid right kidney. Nephrolithiasis: 4 millimeter and 8 millimeter stones noted at the mid to lower pole. 3 millimeter stone inferiorly. Left kidney: 10cm Echogenicity: Normal Hydronephrosis: No Cyst or mass: No suspicious mass. Nephrolithiasis: No 4 millimeter stone upper pole. 3 millimeter stone mid pole. 8 millimeter stone lower pole. Bladder:Mild wall thickening and trabeculation. 8 millimeter diverticulum seen anteriorly. Both ureteral jets were visualized. 2.1 x 2.2 x 2.7 centimeter soft tissue area of avascular nodularity at the lateral posterior aspect of the bladder. Prevoid vol:141 cc Postvoid vol:35 cc The prostate is enlarged with a volume of 43 cc. IMPRESSION: Bilateral nephrolithiasis. No evidence of hydronephrosis. Enlarged prostate. Bladder wall thickening and trabeculation. Small superior diverticulum. Mildly elevated postvoid residual 2.7 centimeter soft tissue density area at the lateral aspect of the bladder. A CT could be performed for further evaluation. Unexpected findings DATA REPOSITORY:
== END 2024-08-15 03:37 ==
PROVIDERS: PCP Family Medicine; Visit Provider Family Medicine
DX: N40.0 Benign prostatic hyperplasia without lower urinary tract symptoms (principal); N20.0 Calculus of kidney; R93.41 Abnormal radiologic findings on diagnostic imaging of renal pelvis, ureter, or bladder
CPT/HCPCS: 76770

== ENCOUNTER 2024-08-25 00:31 | Outpatient (CLI) | payer MEDICARE, SELFPAY ==
--- NOTE | 2024-08-25 07:15 | DI.CT_ITS ---
Exam(s) CT ABDOMEN PELVIS WO/W EXAM: CT ABDOMEN PELVIS WO/W CLINICAL HISTORY: assess bladder mass seen on u/s,disorder of bladder,n32.89. TECHNIQUE: Imaging Protocol: Axial computed tomography images with coronal and sagittal reformatted images were created and reviewed. Images were performed from the lung bases through the ischial tuberosities before IV contrast and following IV contrast using a 70 second delay, followed by 7 minutes delayed images. IMAR images performed of the pelvis due to artifact from bilateral hip prostheses CONTRAST MATERIAL: Intravenous: Omnipaque 350 Contrast volume:75 cc Oral: no COMPARISON: US US RENAL from 08/15/2024 FINDINGS: Lung Bases: Normal where visualized. Liver: Normal density. No measurable mass. Gallbladder and biliary tract: No biliary dilation. Pancreas: Normal density, no abnormal calcifications or inflammatory process. Spleen: Normal. Kidneys: Normal size, contour and axis. Bilateral renal calculi, the largest is at the lower pole of the left kidney measuring 10 millimeters. No suspicious masses seen. 5 cm right central renal cyst. Adrenal glands: No masses seen. Lymph nodes: Within normal limits. Abdominal Aorta: Abdominal portion non-dilated. Atherosclerotic calcification. Soft tissues: Unremarkable. Bladder: The evaluation of the bladder is significantly limited due to presence of bilateral hip prostheses. Metallic artifact reduction software was employed which somewhat improved visualization of the bladder however significant artifact remains. No gross wall thickening. No gross evidence of a mass.No gross evidence of calculi. There is a diverticulum at the right side of the bladder laterally which is at the location of the questioned soft tissue mass on the previous ultrasound. A small anterior diverticulum is also seen. Bowel: Stomach unremarkable. No obstruction or bowel wall thickening. Appendix normal. Diverticulosis of the lower descending and sigmoid colon. No evidence of diverticulitis. Moderate quantity of stool. Peritoneal cavity: No ascites, collection or mesenteric inflammatory response. Bones: There are bilateral hip prostheses which create significant artifact. Reproductive organs: Mostly obscured by artifact. The prostate appears mildly enlarged, impressing on the base of the bladder. IMPRESSION: Evaluation of the bladder is limited due to presence of bilateral hip prostheses. No mass is identified. There is a right-sided bladder diverticulum which may correspond to the finding seen on ultrasound. Cystoscopy is recommended for further evaluation. Bilateral nephrolithiasis. RADIATION DOSE DELIVERED: Total DLP DATA REPOSITORY: All CT scans at this facility are submitted to the National Radiology Data Registry (NRDR) Dose Index Registry (DIR) with the [employer] ([employer]). RADIATION OPTIMIZATION: All CT scans at this facility use at least one of these dose optimization techniques: automated exposure control; mA and/or kV adjustment per patient size (includes targeted exams where dose is matched to clinical indication); or iterative reconstruction.
[2024-08-25 09:36] LABS: Estimated GFR 87.42 (mL/min/1.73m2)
[2024-08-25] MEDS: Normal Saline - Diluent 50 ML VIAL IJ ×2 (10:29→10:30)
[2024-08-25] MEDS: Omnipaque 350 MG/ML 500 ML BTL-Imaging package 75 ML IJ (10:29)
== END 2024-08-25 00:51 ==
LOC: DI 00:31
PROVIDERS: PCP Family Medicine; Visit Provider Family Medicine
DX: N32.89 Other specified disorders of bladder (principal); N20.0 Calculus of kidney
CPT/HCPCS: 74178; 82565

== ENCOUNTER 2024-09-10 09:34 | Emergency (ER) | payer MEDICARE, SELFPAY ==
[2024-09-10] VITALS (15 sets, daily range): BP systolic 118–167; BP diastolic 79–100; PULSE 58–77; RESP 14–22; TEMP 36.7; O2SAT 94–98
--- NOTE | 2024-09-10 10:01 | W.ED.GENAD ---
Discharge Plan Disposition Patient Disposition: Home Condition: Stable Discharge Details Clinical Impression: Allergic reaction to wasp sting Primary Care Provider: Uvaldo Anderson ED Provider: Clara Mcdonald Home Meds and New Rx's Prescriptions: New prednisone 20 mg tablet 40 mg PO DAILY 5 Days Qty: 10 0RF Rx Instructions: Take 2 tablets by mouth once daily for the next 5 days famotidine [Pepcid] 40 mg tablet 40 mg PO DAILY 5 Days Qty: 7 0RF Rx Instructions: Please take 1 tablet by mouth daily for the next 5 days epinephrine [EpiPen 2-Frank] 0.3 mg/0.3 mL auto-injector 0.3 mg IM Q5-15M PRN (Reason: hypersensitivity reaction) Qty: 2 0RF Rx Instructions: do not exceed 3 doses per episode No Action albuterol sulfate [Proventil HFA] 90 mcg/actuation HFA aerosol inhaler 2 puff Inhalation Q4H PRN PRN (Reason: bronchospasm) Qty: 18 6RF meclizine 25 mg tablet 25 mg PO DAILY PRN (Reason: dizziness) Qty: 30 2RF omeprazole 40 mg capsule,delayed release(DR/EC) 40 mg PO DAILY PRN (Reason: acid reflux) Qty: 90 3RF fluticasone propionate 110 mcg/actuation HFA aerosol inhaler 2 puff Inhalation BID Qty: 3 3RF tamsulosin 0.4 mg capsule 0.4 mg PO DAILY Qty: 90 3RF acetaminophen 500 mg tablet 1,000 mg PO Q8H PRN Qty: 90 0RF Rx Instructions: Take two tablets up to every 8 hours as needed for pain ibuprofen 600 mg tablet 600 mg PO TID PRN (Reason: pain) Qty: 60 0RF Discharge Instructions Instructions: Insect allergy, Anaphylaxis, Allergic Reaction ED Additional Instructions: Please take the Pepcid as directed once daily over the next 5 days. You were given first dose here in the emergency department. Please take the prednisone 2 tablets once a day for the next 5 days. Use the epinephrine pens as directed as needed for worsening facial swelling, throat tightness, wheezing. If you do have to use the epinephrine pen please return to the emergency department or call 911 immediately. Follow up with primary care provider in 3-5 days to discuss further follow-up care with law researcher. Return to ED sooner if any worsening swelling rash trouble breathing or concerns. Thank you for allowing us to care for you today. Referrals: Uvaldo Anderson MD [Primary Care Provider, Medicine] - 5 days Referral Note: ER follow-up Clinical Impression: Allergic reaction to wasp sting Discharge Data Discharge Date/Time-TO BE ENTERED AT DEPARTURE: 09/10/24 12:49 HPI General Mode of arrival: ambulatory. Date/Time Provider Initiated Documentation: 09/10/24 09:57. Limitations to Documentation: no limitations. Information obtained by: patient, RN notes reviewed and old records reviewed. HPI Narrative: 79-year-old male presents to the ER after being stung by a wasp yesterday around 430 to the forehead. He currently has periorbital edema, erythemic red and swelling cheeks. He did take 2 Benadryl at 6 AM this morning. The allover body hives has since resolved. He does not have any stridor on exam does have some mild expiratory wheezes in the left upper lobes. He reports that he is having a little bit of trouble swallowing. 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 He is also allergic to cats dust mold sulfa antibiotics and atorvastatin. He is currently speaking in full sentences, O2 sat 94% on room air. Related Data Home Medications ?Medication ?Instructions ?Recorded ?Confirmed albuterol sulfate 90 mcg/actuation 2 puff inhalation Q4H PRN PRN 11/24/22 09/10/24 aerosol inhaler (Proventil HFA) bronchospasm #18 grams acetaminophen 500 mg tablet 1,000 mg (2 x 500 mg) PO Q8H PRN 03/19/23 09/10/24 pain #90 tabs ibuprofen 600 mg tablet 600 mg PO TID PRN pain #60 tabs 03/19/23 09/10/24 fluticasone propionate 110 2 puff inhalation BID asthma #3 01/11/24 09/10/24 mcg/actuation HFA aerosol inhaler vials tamsulosin 0.4 mg capsule 0.4 mg PO DAILY #90 caps 01/11/24 09/10/24 meclizine 25 mg tablet 25 mg PO DAILY PRN dizziness #30 07/13/24 09/10/24 tabs omeprazole 40 mg capsule,delayed 40 mg PO DAILY PRN acid reflux #90 05/29/25 07/27/25 release caps epinephrine 0.3 mg/0.3 mL 0.3 mg (0.3 mL) IM Q5-15M PRN 09/10/24 injection, auto-injector (EpiPen hypersensitivity reaction #2 ea 2-Frank) famotidine 40 mg tablet (Pepcid) 40 mg PO DAILY Allergic reaction 5 09/10/24 days #7 tabs prednisone 20 mg tablet 40 mg (2 x 20 mg) PO DAILY 09/10/24 Allergic reaction 5 days #10 tabs Previous Rx's ?Medication ?Instructions ?Recorded albuterol sulfate 90 mcg/actuation 2 puff inhalation Q4H PRN PRN 11/24/22 aerosol inhaler (Proventil HFA) bronchospasm #18 grams acetaminophen 500 mg tablet 1,000 mg (2 x 500 mg) PO Q8H PRN 03/19/23 pain #90 tabs ibuprofen 600 mg tablet 600 mg PO TID PRN pain #60 tabs 03/19/23 fluticasone propionate 110 2 puff inhalation BID asthma #3 01/11/24 mcg/actuation HFA aerosol inhaler vials tamsulosin 0.4 mg capsule 0.4 mg PO DAILY #90 caps 01/11/24 meclizine 25 mg tablet 25 mg PO DAILY PRN dizziness #30 07/13/24 tabs omeprazole 40 mg capsule,delayed 40 mg PO DAILY PRN acid reflux #90 07/13/24 release caps epinephrine 0.3 mg/0.3 mL 0.3 mg (0.3 mL) IM Q5-15M PRN 09/10/24 injection, auto-injector (EpiPen hypersensitivity reaction #2 ea 2-Frank) famotidine 40 mg tablet (Pepcid) 40 mg PO DAILY Allergic reaction 5 09/10/24 days #7 tabs prednisone 20 mg tablet 40 mg (2 x 20 mg) PO DAILY 09/10/24 Allergic reaction 5 days #10 tabs Allergies Allergy/AdvReac Type Severity Reaction Status Date / Time venom-wasp Allergy Severe Swelling/Ed Verified 09/10/24 10:03 david Sulfa (Sulfonamide Allergy Skin Rash Verified 09/10/24 09:44 Antibiotics) atorvastatin calcium (From AdvReac Intermediate myalgias Verified 09/10/24 09:44 Lipitor) and joint pain CAT/FELINE Allergy Intermediate ASTHMA Uncoded 09/10/24 09:44 EXACERBATION DUST Allergy Intermediate ASTHMA Uncoded 09/10/24 09:44 EXACERBATION MOLDS AND SMUTS Allergy Intermediate ASTHMA Uncoded 09/10/24 09:44 EXACERBATION General Stated Complaint: InsectBite MAHENDRA: 3 Review of Systems All systems reviewed & are unremarkable except as noted in HPI and below Exam Narrative Exam Narrative: Constitutional: Alert and oriented x3. Appears stated age. Normal body habitus. Head: Normocephalic, no trauma. Eyes: Pupils PERRL, Red reflex noted, EOM's intact. Periorbital swelling, erythema and edema. Facial swelling. ENT: Bilateral TM's WNL, External ear normal to inspection, no mastoid TTP, swelling, or erythema, Nasal turbinates boggy no nasal discharge. Normal dentition, Posterior pharynx erythemic, uvula midline, Mallampati 3 Chest: RRR, Normal S1, S2, distal pulses intact. Resp: Lungs left upper lobe wheezes expiratory noted. No stridor. Abdomen: Soft, non-distended, Normoactive bowel sounds all 4 quads. Musculoskeletal: Normal gait, Moves all 4 extremities without difficulty. Skin: Erythema swelling to face eyes nose , previously had hives which have since resolved after taking 2 Benadryl prior to arrival. Capillary refill less than 2 sec. Neurologic: Cranial nerves II-XII intact. Alert and oriented x 3. Motor: No deficits noted. Sensory: Intact bilaterally all 4 extremities. Hematologic/Lymphatic: No ecchymosis, no lymphadenopathy. Course Vital Signs Vital signs: Vital Signs Temperature 36.7 C 09/10/24 09:39 Pulse 77 09/10/24 09:39 Respiratory Rate 18 09/10/24 09:39 Blood Pressure 149/88 H 09/10/24 09:39 Pulse Oximetry 96 09/10/24 09:39 Temperature 36.7 C 09/10/24 09:39 Temperature Source Oral 09/10/24 09:39 Pulse 77 09/10/24 09:39 Respiratory Rate 18 09/10/24 09:39 Blood Pressure 149/88 H 09/10/24 09:39 Pulse Oximetry 96 09/10/24 09:39 Medical Decision Making 79-year-old male presents to the ER after being stung by a wasp yesterday around 430 to the forehead. He currently has periorbital edema, erythemic red and swelling cheeks. He did take 2 Benadryl at 6 AM this morning. The allover body hives has since resolved. He does not have any stridor on exam does have some mild expiratory wheezes in the left upper lobes. He reports that he is having a little bit of trouble swallowing. 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 He is also allergic to cats dust mold sulfa antibiotics and atorvastatin. He is currently speaking in full sentences, O2 sat 94% on room air. Patient on hospital monitor. IV ordered, 125 mg of Solu-Medrol, albuterol nebulizer, 20 mg of Pepcid IV. Will continue to observe and monitor. Will consider epinephrine pen if no improvement after the aforementioned measures. On patient reevaluation his redness swelling to his face has decreased. He is speaking in full sentences. Lungs clear to auscultation bilaterally. Discussed at length home care strict return instructions and follow-up care. Will prescribe him with 5 days of prednisone, Pepcid and EpiPen's discussed plan with and patient who verbalized understanding. This text was generated using [employer] dictation system, please disregard any oddities of phrase or misspellings. Quality:SDOH Health Related Social Needs: Health related social needs lonely/isolated Critical Care Time Critical Care Time Critical Care Time: Yes Total Critical Care Time: 45 Attestation: I spent greater than 35 minutes addressing this patient's acute life threatening illness. This time was spent engaged in actions directly related to the patient's care. Failure to initiate these interventions would have likely resulted in clinically significant or life threatening deterioration in the patients condition. [facility] All Active Problems (Updated 09/10/24 @ 12:30 by Clara Mcdonald NP) Allergic reaction to wasp sting (Acute) Bladder mass (Acute) Back pain (Acute) Chronic prostatitis (Acute) PEÑA (dyspnea on exertion) (Acute) Degenerative joint disease of right knee (Chronic) Most recent Depo-Medrol injection: 07/14/24; 12/10/23; 07/15/23; 03/19/2023 Chest pain (Acute) Drug exanthem (Acute) Vertigo (Acute) Rupture of left proximal biceps tendon (Acute) Left knee injury (Acute) Benign prostate hyperplasia (Chronic) 04/2021-moderately enlarged prostate by exam Hyperlipidemia (Acute) Heart murmur (Acute) c/w benign murmur 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 - has bilateral but only wears right Allergic rhinitis (Acute) Asthma (Acute) mild intermittent Medical History Balance disorder Anxiety Depression Hyperlipidemia Umbilical hernia Sciatica right; back surgery 1993 Rosacea Restless leg syndrome Osteoarthritis RIGHT HIP REPLACEMENT Obstructive sleep apnea syndrome CPAP Nasal polyp Kidney stone Hiatal hernia Hearing loss LEFT SIDE WITH AID Generalized osteoarthrosis right hip replacement Esophageal reflux Benign prostatic hyperplasia Asthma Surgical History History of total left knee replacement (12/22/22) Arthrofibrosis of total knee arthroplasty S/P manipulation under anesthesia: 03/19/2023 Status post laser lithotripsy of ureteral calculus H/O umbilical hernia repair Status post hip replacement RIGHT Status post vasectomy Total replacement of hip Left MARYLIN Rotator Cuff Repair (~2002) Left Repair of inguinal hernia Right Bilateral hernia repair as 6 yo Colonoscopy - MAC (06/03/16) 1999-NEG BACK SURGERY (~1993) Right sciatica Family History (Updated 07/13/24 @ 15:53 by Nenita Garcia) Mother , Age 94 Diverticulitis Father , Age 66 Diabetes Essential hypertension Heart disease Hyperlipidemia Brother Essential hypertension Hyperlipidemia Asthma Brother Essential hypertension Hyperlipidemia Grandfather Heart disease ? OF HEART DISEASE Grandfather Myocardial infarction Grandmother Personal history of malignant neoplasm ? CERVICAL Social History (Updated 07/13/24 @ 15:52 by Nenita Garcia) Smoking/Tobacco Use Status: Never Second Hand Exposure: Yes (As a child) Smoking risk assessment performed?: Yes Alcohol Intake: current Alcohol Intake frequency: a few times a week Alcohol type: wine Details: 1-2 drinks on typical day Drug use: Never Substance use type: does not use Counseling given: No Adopted: No Caregiver/Support person: No Household members: spouse Housing: house Number of Children: 2 Communication Needs: Hard of Hearing Education Level: college Details: PHD Do you need help understanding health information?: Rarely current occupation: Retired Professor Pets and animals: Yes Pets and animals: cat(s) Sexually active: No Do you think of yourself as: straight/heterosexual Current gender identity: male What is your relationship status?: How often do you talk on the phone with friends or family?: once per week Do you belong to any clubs or organized social groups?: yes Panel score (0-1 are the most socially isolated patients): 2 What type of physical activity do you participate in: bicycling and weight lifting Duration: 15-30 minutes/day Frequency: 3-4 times per week Ro/Restorationist: Non caodaism Special ro needs: No Agree to transfusion: Yes Seatbelt use: always Drive intox or ride w/intox sulky driver: No Working smoke detector in home: Yes Carbon monox detector in home: Yes Firearms in home: No Do you feel safe at home: Yes Do you feel safe in your relationship?: Yes Victim of physical abuse: No Victim of emotional abuse: No Victim of sexual abuse: No Would you like helpful sources: No
[2024-09-10] MEDS: Albuterol 2.5 MG/3 ML INH SOLN VIAL UPD (10:15)
[2024-09-10] MEDS: methylPREDNISolone SUCC 125 MG VIAL IVP (10:16)
[2024-09-10] MEDS: Famotidine 20 MG/2 ML VIAL IVP (10:16)
[2024-09-10] MEDS: Normal Saline 1,000 ML 500 ML IV (10:23)
== END 2024-09-10 12:49 | disposition home or self-care (01) ==
PROVIDERS: Emergency Provider Registered Nurse Emergency; PCP Family Medicine
DX: T63.461A Toxic effect of venom of wasps, accidental (unintentional), initial encounter (principal); L50.0 Allergic urticaria; Y92.89 Other specified places as the place of occurrence of the external cause
CPT/HCPCS: 94640; 96374; 96375; 99284; J2919; J7613

== ENCOUNTER → 2024-12-14 12:46 | Outpatient (BNVA) | payer MEDICARE, SELFPAY | PROVIDERS: PCP Family Medicine; Referring Provider Family Medicine; Visit Provider Nurse Practitioner Gerontology | DX: N40.1 Benign prostatic hyperplasia with lower urinary tract symptoms (principal); N41.1 Chronic prostatitis; N32.89 Other specified disorders of bladder; R39.9 Unspecified symptoms and signs involving the genitourinary system; R39.12 Poor urinary stream; R39.15 Urgency of urination; J45.909 Unspecified asthma, uncomplicated | CPT/HCPCS: 99215; 81002; 51798 ==

== ENCOUNTER 2024-12-14 14:14 | Outpatient (CLI) | payer MEDICARE, SELFPAY ==
[2024-12-15 09:37] LABS: PSA, Diagnostic 1.8 ng/mL (<=6.5)
== END 2024-12-14 14:15 | disposition home or self-care (01) ==
LOC: LBO 14:14
PROVIDERS: PCP Family Medicine; Visit Provider Nurse Practitioner Gerontology
DX: N40.0 Benign prostatic hyperplasia without lower urinary tract symptoms (principal)
CPT/HCPCS: 36415; 84153

== ENCOUNTER → 2025-01-22 09:51 | Outpatient (BNVA) | payer MEDICARE, SELFPAY | PROVIDERS: PCP Family Medicine; Referring Provider Family Medicine; Visit Provider Physician Assistant | DX: M17.11 Unilateral primary osteoarthritis, right knee (principal) | CPT/HCPCS: 20610; J1010 ==